=== PATIENT | female | born 1950 | race Caucasian/White ===

== ENCOUNTER → 2016-07-05 | Outpatient (CLI) | payer OTHER ==
[~2016-07-05] MED LIST: COUMADIN 5 MG TA5 M1 PO; ENALAPRIL MALEAT5 M1 PO; LASIX 40 MG TAB40 M2 PO; NEURONTIN100 MG; POTASSIUM20 PO; SILVADENE20 GM; VITAMINC500 PO
== END ==
LOC: HYPER 06:54
DX: I87.332 Chronic venous hypertension (idiopathic) with ulcer and inflammation of left lower extremity (principal); L97.821 Non-pressure chronic ulcer of other part of left lower leg limited to breakdown of skin; R60.9 Edema, unspecified; Z72.0 Tobacco use; F17.210 Nicotine dependence, cigarettes, uncomplicated

== ENCOUNTER → 2016-09-05 | Outpatient (CLI) | payer OTHER | LOC: HYPER 07:08 | DX: I87.332 Chronic venous hypertension (idiopathic) with ulcer and inflammation of left lower extremity (principal); L97.321 Non-pressure chronic ulcer of left ankle limited to breakdown of skin; R60.9 Edema, unspecified; I48.91 Unspecified atrial fibrillation; J44.9 Chronic obstructive pulmonary disease, unspecified; I25.10 Atherosclerotic heart disease of native coronary artery without angina pectoris; I11.0 Hypertensive heart disease with heart failure; I50.9 Heart failure, unspecified; F17.210 Nicotine dependence, cigarettes, uncomplicated; Z86.718 Personal history of other venous thrombosis and embolism; Z85.828 Personal history of other malignant neoplasm of skin; Z86.711 Personal history of pulmonary embolism ==

== ENCOUNTER → 2016-10-03 | Outpatient (CLI) | payer OTHER | LOC: HYPER 07:10 | DX: I87.332 Chronic venous hypertension (idiopathic) with ulcer and inflammation of left lower extremity (principal); L97.322 Non-pressure chronic ulcer of left ankle with fat layer exposed; I48.91 Unspecified atrial fibrillation; J44.9 Chronic obstructive pulmonary disease, unspecified; I11.0 Hypertensive heart disease with heart failure; I50.20 Unspecified systolic (congestive) heart failure; I25.10 Atherosclerotic heart disease of native coronary artery without angina pectoris; Z86.718 Personal history of other venous thrombosis and embolism; Z85.42 Personal history of malignant neoplasm of other parts of uterus; E66.9 Obesity, unspecified; Z86.711 Personal history of pulmonary embolism; F17.210 Nicotine dependence, cigarettes, uncomplicated; Z72.89 Other problems related to lifestyle ==

== ENCOUNTER 2016-11-03 15:56 | Inpatient (IN) | payer OTHER ==
[~2016-11-03] VITALS: Ht 157.5 cm; Wt 82.1 kg
--- NOTE | ~2016-11-03 | 2DMMODE ---
[facility] [address] [place] [address] 2 D/M-MODE ECHOCARDIOGRAM Name: MITESH BRUNER Room #: 212-P ADM IN M.R.#: [id number] Admission: 11/03/16 Attend Phys: Bob William, Discharge: Date of : 52 Date of Service: 11/04/16 1044 Report #: [id number] THIS REPORT FOR: //name// APPROVED REPORT Study performed: 11/04/2016 08:03:26 EXAM: Comprehensive 2D, Doppler, and color-flow Echocardiogram Patient Location: Bedside Room #: 212 Other Information Study Quality: Adequate Indications Congestive Heart Failure Echo Enhancing Agent Indication: Rule out Shunt Agent(s) / Amount(s) Used: Agitated Saline 6 cc 2D Dimensions RVDd: 44.33 mm LVEF(%): 60.50 (>50%) IVSd: 11.96 (7-11mm) LVOT Diam: 19.30 (18-24mm) LVDd: 47.76 mm PWd: 12.47 (7-11mm) Ascending Ao: 30.19 (22-36mm) LVDs: 32.33 (25-40mm) Aortic Root: 28.52 mm IVC: 26.00 mm Marvin's LVEF: 60.50 % Volumes Left Atrial Volume (Systole) Single Plane 4CH: 74.61 mL Single Plane 2CH: 68.92 mL LA ESV Index: 42.00 mL/m2 Aortic Valve AoV Peak Vinh.: 1.46 m/s AO Peak Gr.: 8.53 mmHg LVOT Max P.32 mmHg LVOT Max V: 1.04 m/s STAN Vmax: 2.08 cm2 Mitral Valve MV Decel. Time: 213.79 ms MV E Max Vinh.: 1.35 m/s [facility] [email or web address] [address] 2 D/M-MODE ECHOCARDIOGRAM Name: MITESH BRUNER Room #: 212-P [facility] IN ..#: [id number] Admission: 11/03/16 Attend Phys: Bob William, Discharge: Date of : 52 Date of Service: 11/04/16 1044 Report #: [id number] IVRT: 73.82 ms Pulmonary Valve PV Peak Vinh.: 1.28 m/s PV Peak Gr.: 6.52 mmHg Tricuspid Valve TR Peak Vinh.: 3.44 m/s TR Peak Gr.: 47.45 mmHg RVSP: 10.00 mmHg Left Ventricle The left ventricle is normal size. Mild concentric left ventricular hypertrophy. The overall left ventricular systolic function appears normal. LVEF is 60%. This study is not technically sufficient to allow evaluation of the LV diastolic function. Right Ventricle Right ventricle is dilated. Right ventricular systolic function is grossly normal. Atria Left atrium is dilated. Injection of bubbles documented no interatrial shunt. Right atrium is dilated. Aortic Valve Aortic valve leaflets are mildly thickened. No aortic regurgitation is present. There is no aortic valvular stenosis. Mitral Valve Mitral valve leaflets are mildly thickened. Trace to mild mitral regurgitation. No evidence of mitral valve stenosis. Tricuspid Valve The tricuspid valve is normal in structure. Mild tricuspid regurgitation. Pulmonic Valve The pulmonary valve is normal in structure. Trace to mild pulmonic regurgitation. Great Vessels The aortic root is normal in size. The ascending aorta is normal in size. IVC is dilated and collapses >50% with inspiration. <Conclusion> The left ventricle is normal size. [facility] [address] [place] [address] 2 D/M-MODE ECHOCARDIOGRAM Name: MITESH BRUNER EMILY Room #: 212-P [facility] IN .R.#: [id number] Admission: 11/03/16 Attend Phys: Bob William, Discharge: Date of : 52 Date of Service: 11/04/16 1044 Report #: [id number] Mild concentric left ventricular hypertrophy. LVEF is 60%. Right ventricle is dilated. Right ventricular systolic function is grossly normal. Left atrium is dilated. Right atrium is dilated. Aortic valve leaflets are mildly thickened. Mitral valve leaflets are mildly thickened. Trace to mild mitral regurgitation. The tricuspid valve is normal in structure. Mild tricuspid regurgitation. The pulmonary valve is normal in structure. Trace to mild pulmonic regurgitation. <ELECTRONICALLY SIGNED> By: Marco A Taylor MD 11/04/16 1044 1044 1044 Marco A Taylor MD /INF
--- NOTE | ~2016-11-03 | H ---
[facility] [address] [place] [address] HISTORY AND PHYSICAL Name: FRANCMITESHMich DIAZ Room #: 212-P [facility] IN M.R.#: [id number] Admission: 11/03/16 Attend Phys: Bob William MD, Discharge: 11/05/16 Date of : 52 Report #: [id number] THIS REPORT FOR: //name// For History and Physical, please see office documentation/handwritten note in the patient's medical record. By: 0855 Bob William MD, FACC /jr
--- NOTE | ~2016-11-03 | D ---
[facility] [address] [place] [address] DISCHARGE SUMMARY Name: MITESH BRUNER Room #: 212-P ADM IN M.R.#: [id number] Admission: 11/03/16 Attend Phys: Bob William MD, Discharge: Date of : 52 Report #: [id number] THIS REPORT FOR: //name// CC: Bob BEST DO HISTORY OF PRESENT ILLNESS: The patient is a 65-year-old female who I admitted for an acute on chronic systolic and diastolic heart failure exacerbation with marked volume overload, severe peripheral edema. Admitted for IV Lasix, diuresis and some question of chronic diarrhea, which was evaluated by GI. She was aggressively diuresed and is down approximately 10 pounds. Her lower extremity edema is markedly improved with chronic venous stasis change, but no significant breakdown. She has had a remote gastric bypass, which may have been leading to the diarrhea issue, chronic anemia, atrial fibrillation with controlled ventricular response. I should note there is a left ankle wound that was open and healing, seen by wound care. Stool culture was negative for blood. It was ok to discharge by GI this morning. She feels much better. She is up and ambulating. Sodium was 139, potassium 4.1, creatinine was 0.7. Liver function tests: Alkaline phosphatase was mildly elevated, SGPT was 27. BNP was 2851 that was on admission. H and H is 9.3 and 28.3, white count 7. Lower extremity venous study was also performed that was negative for DVT. Chest x-ray, cardiomegaly and atelectasis were noted. She will be discharged to home on torsemide 40 a day, gabapentin 300 a day, loperamide 8 mg at night, Xarelto 20 mg q. dinner, mag ox, losartan 50, tramadol 50 mg q. 8 p.r.n. DISCHARGE DIAGNOSES: Acute on chronic diastolic failure with ejection fraction has now normalized to EF 55-60%. This was reported 30% at her hospitalization in [facility] earlier this month. DISCHARGE DIAGNOSES: 1. Permanent atrial fibrillation. 2. Mitral valve prolapse. 3. History of deep venous thrombosis, but negative on this study. 4. History of pulmonary embolism. 5. Chronic obstructive pulmonary disease. 6. Early dementia. 7. Moderate pulmonary hypertension by history. We will continue the current regimen here. Fluid and sodium restriction, daily weights again discussed in detail with the patient. She has followup scheduled with wound care and followup scheduled in my office in 3 months. She will call with any issues. I will have her actually visit with nurse practitioner within 2 weeks and myself in [address] [address] DISCHARGE SUMMARY Name: ORLANDO BRUNERSANTIAGO DIAZ Room #: 212-P [facility] IN M.R.#: [id number] Admission: 11/03/16 Attend Phys: Bob William MD, Discharge: Date of : 52 Report #: [id number] Thank you for allowing me to assist in the care of this patient. By: 0955 1217 Bob William MD, FACC /nt
[2016-11-03 16:20] VITALS: BP 119/85
[2016-11-03 17:19] LABS: HEMATOCRIT 28.3 % (37.0-47.0); HEMOGLOBIN 9.3 gm/dL (12.0-15.0); MCHC 32.8 g/dL (28.0-37.0); MCV 82.3 fL (80.0-100.0); RBC 3.44 mil/uL (4.20-5.00); WBC 7.4 thou/uL (4.0-11.0)
[2016-11-03 17:41] LABS: ALBUMIN 3.2 g/dL (3.4-5.0); CALCIUM 8.6 mg/dL (8.5-10.1); CREATININE 0.7 mg/dL (0.6-1.0); TOTAL BILIRUBIN 0.8 mg/dL (<0.1-1.0); TOTAL PROTEIN 7.7 g/dL (6.4-8.2)
[2016-11-03 17:46] LABS: POTASSIUM 2.7 mmol/L (3.5-5.1)
[2016-11-03] MEDS ORDERED: LOPERAMIDE 2 MG2 M1 PO (18:54)
[2016-11-03 19:51] VITALS: BP 107/52
[2016-11-03 20:35] LABS: % SATURATION 11 % (20-39); IRON 40 ug/dL (50-170); TIBC 354 ug/dL (250-450); UIBC 314 ug/dL
[2016-11-03 23:52] VITALS: BP 89/41
[2016-11-04 04:15] VITALS: BP 95/46
[2016-11-04 08:10] VITALS: BP 110/57
[2016-11-04 11:18] VITALS: BP 100/57
[2016-11-04 15:48] VITALS: BP 108/70
[2016-11-04] MEDS ORDERED: XARELTO10 MG PO (17:10)
[2016-11-04] MEDS ORDERED: DEMADEX20 MG PO (17:10)
[2016-11-04 20:22] VITALS: BP 143/71
[2016-11-05 03:03] LABS: CALCIUM 8.4 mg/dL (8.5-10.1); CREATININE 0.7 mg/dL (0.6-1.0); POTASSIUM 4.1 mmol/L (3.5-5.1)
[2016-11-05 04:49] VITALS: BP 109/54
[2016-11-05 07:58] VITALS: BP 129/106
[2016-11-05 10:41] VITALS: BP 129/106
== END 2016-11-05 12:28 | disposition home or self-care (01) | DRG 293 ==
LOC: 2N 15:56
PROVIDERS: Internal Medicine Cardiovascular Disease; Internal Medicine Gastroenterology; Nurse Practitioner Gerontology
DX: I11.0 Hypertensive heart disease with heart failure (principal); I34.1 Nonrheumatic mitral (valve) prolapse; J44.9 Chronic obstructive pulmonary disease, unspecified; I50.43 Acute on chronic combined systolic (congestive) and diastolic (congestive) heart failure; F03.90 Unspecified dementia, unspecified severity, without behavioral disturbance, psychotic disturbance, mood disturbance, and anxiety; I48.2 Chronic atrial fibrillation; D64.9 Anemia, unspecified; I27.2 Other secondary pulmonary hypertension; K52.9 Noninfective gastroenteritis and colitis, unspecified; I42.9 Cardiomyopathy, unspecified; E87.6 Hypokalemia; Z98.84 Bariatric surgery status; Z88.0 Allergy status to penicillin; Z86.711 Personal history of pulmonary embolism; Z86.718 Personal history of other venous thrombosis and embolism; Z90.49 Acquired absence of other specified parts of digestive tract; Z87.01 Personal history of pneumonia (recurrent)
CPT/HCPCS: 10081

== ENCOUNTER 2016-11-08 10:25 | Inpatient (IN) | payer OTHER ==
[~2016-11-08] VITALS: Ht 157.5 cm; Wt 84.7 kg
--- NOTE | ~2016-11-08 | EKG ---
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: MZOOJesus : 1950 Requested By: Demetrius Eaton Order Number: [id number] MD: Varun Naranjo Measurements Intervals [place] Rate: 112 P: MT: QRS: -35 QRSD: 100 T: 197 QT: 366 QTc: 500 Interpretive Statements Atrial fibrillation Ventricular premature complex Incomplete RBBB and LAFB Abnormal T, consider ischemia, lateral leads Artifact in lead(s) I,II,aVR,aVL,aVF,V1 Electronically Signed On 11-08-2016 17:12:40 CDT by Varun Naranjo [email or web address] <ELECTRONICALLY SIGNED> By: Varun Naranjo MD 11/08/16 1712 1033 1033 Varun Naranjo MD /EPI
--- NOTE | ~2016-11-08 | HC ---
[facility] [address] [place] [address] CONSULTATION Name: MITESH BRUNER EMILY Room #: 460-P ADM IN M.R.#: [id number] Admission: 11/08/16 Attend Phys: Ang Reed MD Discharge: Date of : 52 Report #: [id number] THIS REPORT FOR: //name// CC: Ang Badillo REASON FOR CONSULTATION: Pneumonia, confusion. HISTORY OF PRESENT ILLNESS: The patient is a 65-year-old who presents to the emergency room with confusion, weakness, cough. She was a poor historian. She was treated through 11/05/2016 at [facility] with exacerbation of congestive heart failure. She is also diagnosed with anemia. The patient has been anticoagulated and therefore colonoscopy was not yet performed. Earlier in the month, she was treated at [facility] for pneumonia. She has had cough with intermittent sputum production. She could not relay much other information about her past history. She does live with her son. She has several dogs. Has had pneumonia in the past. Previously was morbidly obese but lost fair amount of weight. She is allergic to PENICILLIN. She has had a gastric bypass. She is a past smoker. No history of tuberculosis. REVIEW OF SYSTEMS: Denies any nausea, vomiting, diarrhea, dysuria or frequency. No chest pain. No headache. She has chronic wound to her left ankle. ALLERGIES: PENICILLIN. MEDICATIONS: As noted on her MAR, which were reviewed. PAST MEDICAL HISTORY: Previous morbid obesity, gastric bypass, ovarian cancer, cholecystectomy, atrial fibrillation, chronic diarrhea, anemia, peripheral vascular disease. FAMILY HISTORY: Noncontributory. SOCIAL HISTORY: Unchanged from above. She continues to smoke cigarettes and moderate alcohol intake. PHYSICAL EXAMINATION: GENERAL: She is afebrile, hemodynamically stable. She was alert and cooperative and pleasant, in no acute distress. VITAL SIGNS: She is on 2 liters of oxygen per nasal cannula. Her maximum temperature earlier this morning was 102.4 degrees. SKIN: Chronic wound to the lateral aspect of her left lower leg just above the ankle. No surrounding cellulitis. No significant drainage. HEENT: Edentulous in the upper mouth. NECK: Supple. LUNGS: Clear. HEART: Regular, without murmur. [address] [address] CONSULTATION Name: MITESH BRUNER Room #: 460-P [facility] IN M.R.#: [id number] Admission: 11/08/16 Attend Phys: Ang Reed MD Discharge: Date of : 51 Report #: [id number] ABDOMEN: Soft, no hepatosplenomegaly or mass. NEUROLOGIC: Nonfocal. LABORATORY STUDIES: Urinalysis unremarkable. Lactate 1.8, hemoglobin 10.3, white count 10.2, platelet count 232,000. Differential, 88% segs, 0 bands, 6% lymphocytes. Sodium 141, potassium 3.9, bicarbonate 32, creatinine 0.8. Chest x-ray, right upper lung infiltrate along with right middle and lower lobe infiltrate. Improved atelectasis in the left upper lung. IMPRESSION: Aspiration suspected, nosocomial, healthcare-associated pneumonia, most likely. PLAN: Recommend broad antibiotic coverage pending culture results. Hopefully, mental status will improve following treatment. <ELECTRONICALLY SIGNED> By: Rajeev Santiago MD 11/09/16 1845 [id number] 0106 Rajeev Santaigo MD /nt
--- NOTE | ~2016-11-08 | HC ---
[facility] [address] [place] [address] CONSULTATION Name: MITESH BRUNER Room #: 460-P [facility] IN M.R.#: [id number] Admission: 11/08/16 Attend Phys: Ang Reed MD Discharge: Date of : 51 Report #: [id number] THIS REPORT FOR: //name// CC: Ang Badillo DATE OF SERVICE: 11/09/2016 DATE OF CONSULTATION: 11/09/2016 PERSONAL PHYSICIAN: ____. CHIEF COMPLAINT: Left ankle ulcer. HISTORY OF PRESENT ILLNESS: This is a 65-year-old white female who was recently hospitalized for acute exacerbation of congestive heart failure, who I have been following for several months for a chronic ulceration on her left ankle region. The patient most recently was hospitalized and started on TheraHoney and was scheduled to followup with me in clinic later this week; however, patient developed confusion, weakness and cough and has now been admitted for pneumonia. I have been asked to assist in the care for her ulcer of her heel at this time. The patient denies any other associated ulcerations at this time. PAST MEDICAL HISTORY: Significant for previous morbid obesity status post gastric bypass with significant weight loss, history of ovarian cancer, cholecystectomy, atrial fibrillation, peripheral vascular disease and anemia. CURRENT MEDICATIONS: Are multiple, I reviewed the patient's medication list. DRUG ALLERGIES: PENICILLIN. SOCIAL HISTORY: The patient has a history of smoking and still smokes approximately half a pack of cigarettes daily, drinks alcohol socially. FAMILY HISTORY: Not pertinent to current medical condition. REVIEW OF SYSTEMS: CONSTITUTIONAL: The patient had fevers and chills prior to admission. NEUROLOGIC: The patient complains of generalized weakness, but no isolated weakness in arms or legs. EYES: No complaints. ENT: No complaints. CARDIAC: The patient denies chest pain, palpitations, has history of peripheral edema, which is improved. RESPIRATORY: The patient denies shortness of breath and does have associated cough and occasional wheeze. [facility] [address] [place] [address] CONSULTATION Name: MITESH BRUNER EMILY Room #: [address] [place] [address] IN M.R.#: [id number] Admission: 11/08/16 Attend Phys: Ang Reed MD Discharge: Date of : 51 Report #: [id number] GASTROINTESTINAL: The patient denies nausea, vomiting or abdominal pain. GENITOURINARY: The patient denies urgency or frequency. MUSCULOSKELETAL: No complaints. SKIN: There is a chronic ulceration on the lateral aspect of left ankle. PHYSICAL EXAMINATION: VITAL SIGNS: Stable. The patient is afebrile. GENERAL: This is alert and oriented x 3, pleasant white female who is in no acute distress. HEENT: Normocephalic and atraumatic. Mucous membranes are dry. Pupils are round. Sclerae white. NECK: Without JVD or masses. BACK: Nontender. LUNGS: Diminished breath sounds heard throughout. Occasional scattered wheeze. HEART: Irregularly irregular with a 2/6 systolic ejection murmur. ABDOMEN: Soft, nontender. EXTREMITIES: The patient moves all extremities without difficulty. The patient has trace to 1+ edema in bilateral lower extremities. There is faint to 1+ pulses in both dorsalis pedis and posterior tibial bilaterally. On the left lateral ankle is a chronic ulceration, which has a mixture of approximately 50% slough 50% granulation tissue. There is no evidence of exposed deeper structures, no significant ____. There is moderate amount of serosanguineous drainage without odor. Periulcer itself is otherwise intact without significant signs of erythema, warmth or cellulitis. Bilateral heels are intact. NEUROLOGIC: Cranial nerves 2-12 are grossly intact. Motor and sensory grossly intact. LABORATORY DATA: White count 10.0, hemoglobin 7.9, prealbumin is markedly low at 8.4, albumin is 2.7. IMPRESSION: 1. Chronic ulceration left lateral ankle, limited breakdown of fat layer. 2. Chronic peripheral arterial disease. 3. Chronic history of venous insufficiency with edema. 4. Pneumonia most likely a concern for aspiration. 5. Severe protein calorie malnutrition, albumin 8.4. 6. Generalized debility. PLAN: At this time, we will start the patient on Pulse lavage of the left ankle ulcer to try to help clean out some of the slough, continue with TheraHoney and Optifoam every Monday, Monday and Monday. We will continue to maximize the [address] [address] CONSULTATION Name: FRANCMITESHMich DIAZ Room #: 460-P ADM IN M.R.#: [id number] Admission: 11/08/16 Attend Phys: Ang Reed MD Discharge: Date of : 51 Report #: [id number] patient's oral protein supplementation for healing. We will continue to follow the patient. I appreciate the ability to consult. By: 1817 0223 Walter Swift MD /ronak
[~2016-11-08 10:25] MED LIST changes: +DEMADEX20 MG PO; +LOPERAMIDE 2 MG2 M1 PO; +XARELTO10 MG PO
[2016-11-08 10:27] VITALS: BP 116/56
[2016-11-08 10:59] LABS: HEMOGLOBIN 10.3 gm/dL (12.0-15.0); MCHC 32.1 g/dL (28.0-37.0); MCV 84.1 fL (80.0-100.0); PLATELET COUNT 232 thou/uL (150-400); RDW 28.9 % (10.5-14.5); WBC 10.2 thou/uL (4.0-11.0)
[2016-11-08 11:07] LABS: MANUAL DIFF YES
[2016-11-08 11:11] LABS: CALCIUM 8.5 mg/dL (8.5-10.1); CREATININE 0.8 mg/dL (0.6-1.0); POTASSIUM 3.9 mmol/L (3.5-5.1)
[2016-11-08 11:42] LABS: ANISOCYTOSIS 3+; MACROCYTES 1+; MICROCYTES 1+; TOTAL CELL COUNT 100
[2016-11-08 12:17] LABS: URINE BILIRUBIN NEGATIVE (Negative); URINE BLOOD NEGATIVE (Negative); URINE COLOR YELLOW; URINE GLUCOSE-RANDOM* NEGATIVE (Negative); URINE KETONES NEGATIVE (Negative); URINE LEUKOCYTES-REFLEX NEGATIVE (Negative); URINE PROTEIN (DIPSTICK) NEGATIVE (Negative)
[2016-11-08 13:21] VITALS: BP 115/48
[2016-11-08 14:07] VITALS: BP 102/74
[2016-11-08 16:55] VITALS: BP 145/85
[2016-11-08 21:12] VITALS: BP 125/59
[2016-11-09] VITALS: BP 96/45
[2016-11-09 04:00] VITALS: BP 113/92
[2016-11-09 05:59] LABS: HEMATOCRIT 24.7 % (37.0-47.0); HEMOGLOBIN 7.9 gm/dL (12.0-15.0); MANUAL DIFF YES; MCH 27.1 pg (26.0-34.0); MCHC 32.2 g/dL (28.0-37.0); MCV 84.1 fL (80.0-100.0); PLATELET COUNT 184 thou/uL (150-400); RBC 2.93 mil/uL (4.20-5.00); RDW 28.2 % (10.5-14.5)
[2016-11-09 06:15] LABS: CALCIUM 8.2 mg/dL (8.5-10.1); CREATININE 0.8 mg/dL (0.6-1.0); MAGNESIUM 2.2 mg/dL (1.8-2.4); POTASSIUM 3.5 mmol/L (3.5-5.1)
[2016-11-09 07:43] LABS: ABSOLUTE NEUTROPHILS 8.8 thou/uL (1.4-8.2); ANISOCYTOSIS 1+; POIKILOCYTOSIS SLIGHT; TOTAL CELL COUNT 100
[2016-11-09 07:44] LABS: HYPOCHROMASIA 1+; OVALOCYTES OCCASIONAL
[2016-11-09 07:45] VITALS: BP 108/45
[2016-11-09 10:20] LABS: HEMATOCRIT 27.1 % (37.0-47.0); HEMOGLOBIN 8.6 gm/dL (12.0-15.0); MCH 27.1 pg (26.0-34.0); MCHC 31.9 g/dL (28.0-37.0); MCV 84.8 fL (80.0-100.0); RBC 3.19 mil/uL (4.20-5.00); RDW 28.3 % (10.5-14.5); WBC 8.8 thou/uL (4.0-11.0)
[2016-11-09 12:03] VITALS: BP 107/61
[2016-11-09] MEDS ORDERED: NEURONTIN 300300 M1 PO (13:21)
[2016-11-09] MEDS ORDERED: COZAAR 50 MG TA50 M2 PO (13:24)
[2016-11-09 16:04] VITALS: BP 108/53
[2016-11-09 19:56] VITALS: BP 116/62
[2016-11-10 03:56] VITALS: BP 113/51
[2016-11-10 07:00] VITALS: BP 133/74
[2016-11-10 11:37] VITALS: BP 105/56
[2016-11-10 14:52] LABS: HEMATOCRIT 26.4 % (37.0-47.0); HEMOGLOBIN 8.5 gm/dL (12.0-15.0); MCH 27.2 pg (26.0-34.0); MCHC 32.2 g/dL (28.0-37.0); MCV 84.7 fL (80.0-100.0); RBC 3.11 mil/uL (4.20-5.00)
[2016-11-10 15:00] LABS: CALCIUM 8.4 mg/dL (8.5-10.1); CREATININE 0.7 mg/dL (0.6-1.0); POTASSIUM 3.4 mmol/L (3.5-5.1)
[2016-11-10 15:47] VITALS: BP 109/51
[2016-11-10 19:42] VITALS: BP 111/56
[2016-11-11 03:13] VITALS: BP 88/58
[2016-11-11 07:38] VITALS: BP 126/61
[2016-11-11 10:48] VITALS: BP 126/61
[2016-11-11 12:59] VITALS: BP 122/72
[2016-11-11] MEDS ORDERED: LEVAQUIN 750 M750 MG PO (14:26)
[2016-11-11] MEDS ORDERED: PROBIOTIC1 EAC1 PO (14:26)
[2016-11-11 14:42] VITALS: BP 126/61
[2016-11-11 14:45] VITALS: BP 126/61
== END 2016-11-11 15:37 | disposition home health service (06) | DRG 177 ==
LOC: ER 10:25 → 4W 13:01 → EROBS 13:01 → 4W 13:22
PROVIDERS: Emergency Medicine; Internal Medicine; Nurse Practitioner
DX: J69.0 Pneumonitis due to inhalation of food and vomit (principal); J96.01 Acute respiratory failure with hypoxia; G93.40 Encephalopathy, unspecified; E43 Unspecified severe protein-calorie malnutrition; L97.329 Non-pressure chronic ulcer of left ankle with unspecified severity; I48.91 Unspecified atrial fibrillation; I73.9 Peripheral vascular disease, unspecified; R00.0 Tachycardia, unspecified; I27.2 Other secondary pulmonary hypertension; D64.9 Anemia, unspecified; R01.1 Cardiac murmur, unspecified; I87.2 Venous insufficiency (chronic) (peripheral); F17.210 Nicotine dependence, cigarettes, uncomplicated; K52.9 Noninfective gastroenteritis and colitis, unspecified; Z68.34 Body mass index [BMI] 34.0-34.9, adult; Z79.899 Other long term (current) drug therapy; Z85.43 Personal history of malignant neoplasm of ovary; Z90.49 Acquired absence of other specified parts of digestive tract; Z88.0 Allergy status to penicillin; Z98.84 Bariatric surgery status; Z86.718 Personal history of other venous thrombosis and embolism
CPT/HCPCS: 10045

== ENCOUNTER → 2016-12-09 | Outpatient (CLI) | payer OTHER ==
[~2016-12-09] MED LIST changes: +COZAAR 50 MG TA50 M2 PO; +LEVAQUIN 750 M750 MG PO; +NEURONTIN 300300 M1 PO; +PROBIOTIC1 EAC1 PO
== END ==
LOC: HYPER 08:21
DX: I87.332 Chronic venous hypertension (idiopathic) with ulcer and inflammation of left lower extremity (principal); L97.321 Non-pressure chronic ulcer of left ankle limited to breakdown of skin; R60.9 Edema, unspecified; I48.91 Unspecified atrial fibrillation; J44.9 Chronic obstructive pulmonary disease, unspecified; I25.10 Atherosclerotic heart disease of native coronary artery without angina pectoris; I11.0 Hypertensive heart disease with heart failure; I50.9 Heart failure, unspecified; F17.210 Nicotine dependence, cigarettes, uncomplicated; Z72.89 Other problems related to lifestyle; Z85.828 Personal history of other malignant neoplasm of skin; Z86.711 Personal history of pulmonary embolism

== ENCOUNTER → 2017-02-09 | Outpatient (CLI) | payer OTHER | LOC: HYPER 01-02 08:57 | DX: I87.332 Chronic venous hypertension (idiopathic) with ulcer and inflammation of left lower extremity (principal); L97.822 Non-pressure chronic ulcer of other part of left lower leg with fat layer exposed; I48.91 Unspecified atrial fibrillation; J44.9 Chronic obstructive pulmonary disease, unspecified; I11.0 Hypertensive heart disease with heart failure; I50.9 Heart failure, unspecified; H91.90 Unspecified hearing loss, unspecified ear; I25.10 Atherosclerotic heart disease of native coronary artery without angina pectoris; E66.9 Obesity, unspecified; F17.210 Nicotine dependence, cigarettes, uncomplicated; Z86.711 Personal history of pulmonary embolism; Z86.718 Personal history of other venous thrombosis and embolism; Z85.42 Personal history of malignant neoplasm of other parts of uterus; Z87.01 Personal history of pneumonia (recurrent); Z90.710 Acquired absence of both cervix and uterus; Z72.89 Other problems related to lifestyle; Z68.31 Body mass index [BMI] 31.0-31.9, adult ==

== ENCOUNTER → 2017-03-08 | Outpatient (CLI) | payer OTHER | LOC: HYPER 07:09 | DX: I87.332 Chronic venous hypertension (idiopathic) with ulcer and inflammation of left lower extremity (principal); L97.322 Non-pressure chronic ulcer of left ankle with fat layer exposed; I48.91 Unspecified atrial fibrillation; J44.9 Chronic obstructive pulmonary disease, unspecified; I11.0 Hypertensive heart disease with heart failure; I50.9 Heart failure, unspecified; I25.10 Atherosclerotic heart disease of native coronary artery without angina pectoris; E66.9 Obesity, unspecified; H91.90 Unspecified hearing loss, unspecified ear; F17.210 Nicotine dependence, cigarettes, uncomplicated; Z72.89 Other problems related to lifestyle; Z86.718 Personal history of other venous thrombosis and embolism; Z85.44 Personal history of malignant neoplasm of other female genital organs; Z86.711 Personal history of pulmonary embolism; Z87.01 Personal history of pneumonia (recurrent); Z90.710 Acquired absence of both cervix and uterus ==

== ENCOUNTER 2017-03-12 00:29 | Inpatient (IN) | payer OTHER ==
[~2017-03-12] VITALS: Ht 162.6 cm; Wt 80.0 kg
[2017-03-12] VITALS (65 sets, daily range): BP systolic 74–134; BP diastolic 33–102
--- NOTE | ~2017-03-12 | EKG ---
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 : 1950 Requested By: Octavio Plummer Order Number: [id number] MD: Varun Naranjo Measurements Intervals [place] Rate: 96 P: [place]: QRS: 197 QRSD: 102 T: -46 QT: 396 QTc: 501 Interpretive Statements Atrial fibrillation Low voltage, precordial leads Probable RVH w/ secondary repol abnormality Compared to ECG 03/12/2017 08:14:25 ST (T wave) deviation no longer present Electronically Signed On 03-13-2017 11:23:57 CDT by Varun Naranjo [email or web address] <ELECTRONICALLY SIGNED> By: Varun Naranjo MD 03/13/17 1123 0951 0951 Varun Naranjo MD /EPI
--- NOTE | ~2017-03-12 | P ---
[facility] [address] [place] [address] PROCEDURE REPORT Name: MITESH BRUNER Room #: 350-P ADM IN M.R.#: [id number] Admission: 03/12/17 Attend Phys: Clifford Beltran DO Discharge: Date of : 51 Report #: [id number] THIS REPORT FOR: //name// CC: Mich Loyd DATE OF SERVICE: 03/14/2017 PROCEDURE PERFORMED: EGD with bleeding control and nasogastric tube placement. HISTORY OF PRESENT ILLNESS: The patient is a 66-year-old female with respiratory failure who was transferred from outside facility, has a history of AFib, hypertension, congestive heart failure, pneumonia, pulmonary hypertension, and previous history of a gastric bypass. She is currently in the ICU, intubated and sedated. An OG tube was placed; however, it appears it is coiling in a hiatal hernia , therefore GI consult for possible EGD placement of OG tube. She has also been on Xarelto at home and is anemic. Hemoglobin on March 12, was 9.2, today is 8.7. A CT arteriogram chest protocol was performed yesterday, which showed small pulmonary emboli present on the right lower lung, these are new from prior study. The patient is currently on IV heparin. PROCEDURE: The risks and benefits of the procedure were explained to the patient's family, those risks including, but not limited to bleeding, perforation, and the risk of sedation. They understood these risks and gave informed consent. The procedure was performed in the ICU. Again, the patient is already sedated on propofol and on a ventilator. Next, using a standard Fujinon upper endoscope, the scope was placed in the patient's mouth and advanced under direct vision through the esophagus into the remaining stomach, at which point surgical anastomosis was noted. This was consistent with a partial gastrectomy and anastomosis of duodenum to remaining stomach. Small amount of residual food was noted in the stomach. I was able to advance the scope into the duodenum, at which point a visible vessel with fresh clot was noted. There was no active bleeding. I 2 Endoclips without difficulty. No bleeding was noted after Endoclip placement. I was able to advance the scope beyond this point. In this area, the duodenum was normal. At this point, the scope was then brought back up into the patient's oropharynx. The previous OG-tube was removed prior to the procedure and a nasogastric tube was placed. I was able to guide this in with the endoscope through the esophagus through the remaining gastric remnant and into the duodenum beyond the point of the Endoclip placement. The scope was then withdrawn and the tube remained in place. The procedure was then terminated. The patient tolerated the procedure well. IMPRESSION: 1. Surgical changes consistent with gastric bypass in which small gastric [facility] [address] [place] [address] PROCEDURE REPORT Name: MITESH BRUNER EMILY Room #: 350-P [facility] IN M.R.#: [id number] Admission: 03/12/17 Attend Phys: Clifford Beltran DO Discharge: Date of : 51 Report #: [id number] remnant remains. 2. Visible vessel with clot likely source of recent gastrointestinal bleed, now status post 2 Endoclips placement. 3. Placement of a nasogastric tube into the duodenum. RECOMMENDATIONS: 1. Observe the patient post procedure. 2. We will discontinue Pepcid and start a Protonix drip. 3. We will continue to monitor hemoglobin closely. Thank you for allowing me to participate in her care. <ELECTRONICALLY SIGNED> By: Mannie Pacheco MD 03/17/17 1510 1418 1548 Mannie Pacheco MD /nt
--- NOTE | ~2017-03-12 | HC ---
[facility] [address] [place] [address] CONSULTATION Name: MITESH BRUNER Room #: 247-P ADM IN M.R.#: [id number] Admission: 03/12/17 Attend Phys: Clifford Beltran DO Discharge: Date of : 51 Report #: [id number] THIS REPORT FOR: //name// CC: Clifford Badillo DATE OF SERVICE: 03/12/2017 REASON FOR CONSULTATION: Acute respiratory failure. Forty minutes critical care time. IMPRESSION: 1. Severe sepsis. 2. Left lower lobe pneumonia. 3. Acute hypoxemic respiratory failure. 4. Atrial fibrillation. 5. Trace to mild mitral regurgitation. PLAN: 1. Continue current antibiotics. 2. Wean ventilator as able. 3. Await cultures. 4. Anticoagulation for atrial fibrillation per primary. 5. Recheck chest x-ray and ABG in a.m. 6. May need surgical evaluation for hiatal hernia. HISTORY OF PRESENT ILLNESS: A 66-year-old female with history of aspiration pneumonia, comes in from [facility], required intubation en route. PAST MEDICAL HISTORY: ALLERGIES: PENICILLIN. MEDICATIONS: Included Xarelto, gabapentin, losartan, loperamide. PAST SURGICAL HISTORY: Include ovarian, cholecystectomy, gastric bypass. SOCIAL HISTORY: Positive tobacco in past and ETOH. REVIEW OF SYSTEMS: Unobtainable. FAMILY HISTORY: Unobtainable. PHYSICAL EXAMINATION: VITAL SIGNS: The patient is intubated, minute ventilation 11, peak airway pressure 25. [facility] [address] [place] [address] CONSULTATION Name: MITESH BRUNER Room #: 247-P ADM IN M.R.#: [id number] Admission: 03/12/17 Attend Phys: Clifford Beltran DO Discharge: Date of : 51 Report #: [id number] LUNGS: Coarse, left greater than right. HEART: Irregular. ABDOMEN: Bowel sounds present. EXTREMITIES: Showed no edema or cyanosis. NEUROLOGICAL: She awakens, but sedated. LABORATORY DATA: Urine strep is negative. Labs pending. Chest x-ray showed left infiltrate. BNP 4355. The pH 7.37, pCO2 of 53, pO2 of 328 on 100%, rate of 14, tidal volume 400, PEEP of 5. <ELECTRONICALLY SIGNED> By: Octavio Plummer MD 03/12/17 1511 1115 1327 Octavio Plummer MD /nt
--- NOTE | ~2017-03-12 | HC ---
[facility] [address] [place] [address] CONSULTATION Name: MITESH BRUNER Room #: 247-P ADM IN M.R.#: [id number] Admission: 03/12/17 Attend Phys: Clifford Beltarn DO Discharge: Date of : 52 Report #: [id number] THIS REPORT FOR: //name// CC: Clifford Badillo DATE OF SERVICE: 03/13/2017 CHIEF COMPLAINT: Ulceration of the left lateral lower leg. HISTORY OF PRESENT ILLNESS: This is a 66-year-old patient with whom I am familiar from recent hospitalization. She has been admitted with respiratory failure. She was intubated by EMS and is currently in ICU. We have seen her for her lower leg wound in the past. She had done well with topical TheraHoney and pulsatile lavage. She is sedated on respirator at this time, cannot provide any information about herself. ALLERGIES: PENICILLIN. PAST MEDICAL HISTORY: Positive for chronic ulceration of left ankle due to venous hypertension and venous insufficiency. She has a history of tobacco use. FAMILY HISTORY: Noncontributory. MEDICATIONS: Include Xarelto, gabapentin, ____ and loperamide. PAST SURGICAL HISTORY: She has had previous cholecystectomy and previous gastric bypass. SOCIAL HISTORY: Positive for alcohol and tobacco use in the past. REVIEW OF SYSTEMS: Unobtainable due to the patient's condition. PHYSICAL EXAMINATION: VITAL SIGNS: At this time include pulse 100, respiratory rate 19, blood pressure 126/72, temperature is 99.0. GENERAL: This is a chronically ill-appearing female patient who is sedated on ventilator. HEAD: Normocephalic. NECK: Supple. She is orally intubated. LUNGS: Diminished. HEART: Regular rhythm. ABDOMEN: Soft, nontender. EXTREMITIES: Lower extremities appear to be well perfused. She has ulceration involving her left lateral lower leg. It is covered mostly with pale granulation tissue, it is not overtly infected. [facility] [address] [place] [address] CONSULTATION Name: MITESH BRUNER Room #: 247-P [facility] IN .R.#: [id number] Admission: 03/12/17 Attend Phys: Clifford Beltran DO Discharge: Date of : 51 Report #: [id number] CLINICAL IMPRESSION: 1. Venous ulceration, left lower extremity. 2. Respiratory failure requiring mechanical ventilation. 3. Recent sepsis. RECOMMENDATIONS: At this point in time, we will recommend topical TheraHoney to the ulceration. She will need to be turned and repositioned every 2 hours while she is sedated. Continue with aggressive nutritional support while she is here. I appreciate being asked to see her in consultation. <ELECTRONICALLY SIGNED> By: Perez Marcelo MD 03/15/17 1419 1714 0542 Perez Marcelo MD /nt
--- NOTE | ~2017-03-12 | EKG ---
[address] [place] [address] ELECTROCARDIOGRAM REPORT Name: ORLANDO BRUNERSANTIAGO DIAZ Room #: 247- ADM IN M.R.#: [id number] Admission: 03/12/17 Attend Phys: Clifford Beltran DO Discharge: Date of : 52 Report #: [id number] THIS REPORT FOR: //name// [facility] Test Date: 2017-03-12 Test Time: 08:14:25 Pat Name: MITESH BRUNER Department: Room: 247 P Gender: F Director Of Scientific Research: EDDIE : 1950 Requested By: Suzi Hanson Order Number: [id number] MD: Av Hall Measurements Intervals [place] Rate: 77 P: ID: QRS: 258 QRSD: 102 T: -27 QT: 434 QTc: 492 Interpretive Statements Atrial fibrillation Low voltage, precordial leads Abnormal R-wave progression, late transition Nonspecific ST and T wave abnormality Compared to ECG 11/08/2016 10:33:[address] and T wave abnormality is less pronounced heart rate has slowed Electronically Signed On 03-12-2017 11:05:49 CDT by Av Hall [email or web address] <ELECTRONICALLY SIGNED> By: Av Hall MD, [facility] 03/12/17 1105 3 3 Av Hall MD, [facility] /EPI
--- NOTE | ~2017-03-12 | 2DMMODE ---
[facility] [address] [place] [address] 2 D/M-MODE ECHOCARDIOGRAM Name: FRANCMITESHSANTIAGO DIAZ Room #: 247-P ADM IN M.R.#: [id number] Admission: 03/12/17 Attend Phys: Clifford Beltran, Discharge: Date of : 52 Date of Service: 03/13/17 1059 Report #: [id number] THIS REPORT FOR: //name// APPROVED REPORT Study performed: 03/13/2017 09:59:53 EXAM: Comprehensive 2D, Doppler, and color-flow Echocardiogram Patient Location: Bedside Room #: [facility] Status: routine BSA: 1.93 HR: 98 bpm BP: 123/59 mmHg Rhythm: NSR Other Information Study Quality: Adequate Technically limited study due to limited mobility. Patient in ICU on vent. Indications Pulmonary Hypertension Atrial Fibrillation Acute respiratory failure. 2D Dimensions RVDd: 48.43 mm LVEF(%): 53.99 (>50%) IVSd: 10.73 (7-11mm) LVOT Diam: 20.93 (18-24mm) LVDd: 43.61 mm PWd: 8.61 (7-11mm) Ascending Ao: 32.04 (22-36mm) LVDs: 31.53 (25-40mm) Aortic Root: 29.71 mm Marvin's LVEF: 53.99 % Volumes Left Atrial Volume (Systole) Single Plane 4CH: 83.24 mL Single Plane 2CH: 98.59 mL LA ESV Index: 50.00 mL/m2 Aortic Valve AoV Peak Vinh.: 1.43 m/s AO Peak Gr.: 9.88 mmHg LVOT Max P.66 mmHg LVOT Max V: 0.95 m/s STAN Vmax: 2.29 cm2 [facility] [place] [place] [address] 2 D/M-MODE ECHOCARDIOGRAM Name: MITESH BRUNER EMILY Room #: 247-P [facility] IN M.R.#: [id number] Admission: 03/12/17 Attend Phys: Clifford Beltran, Discharge: Date of : 52 Date of Service: 03/13/17 1059 Report #: [id number] Mitral Valve MV Decel. Time: 154.81 ms MV E Max Vinh.: 1.39 m/s Pulmonary Valve PV Peak Vinh.: 1.26 m/s PV Peak Gr.: 6.41 mmHg Tricuspid Valve TR Peak Vinh.: 3.30 m/s RAP Estimate: 10.00 mmHg TR Peak Gr.: 44.00 mmHg PA Pressure: 54.00 mmHg Left Ventricle The left ventricle is normal size. Flattened interventricular septum. There is normal left ventricular wall thickness. Left ventricular systolic function is normal. LVEF is 55%. This study is not technically sufficient to allow evaluation of the LV diastolic function due to atrial fibrillation. Right Ventricle Right ventricle is dilated. Atria Left atrium is severely dilated. Right atrium is severely dilated. Aortic Valve Aortic valve is mildly thickened and calcified. No aortic regurgitation is present. There is no aortic valvular stenosis. Mitral Valve Mitral valve leaflets are mildly thickened. Mild mitral annular calcification. Trace mitral regurgitation. Tricuspid Valve The tricuspid valve is normal in structure. Moderate tricuspid regurgitation. Estimated PAP is 55mmHg. Pulmonic Valve The pulmonary valve is normal in structure. Trace pulmonic regurgitation. Great Vessels The aortic root is normal in size. The ascending aorta is normal in [facility] [address] [place] [address] 2 D/M-MODE ECHOCARDIOGRAM Name: MITESH BRUNER Room #: 247-P [facility] IN ..#: [id number] Admission: 03/12/17 Attend Phys: Clifford Beltran, Discharge: Date of : 52 Date of Service: 03/13/17 1059 Report #: [id number] size. IVC is dilated and collapses <50% with inspiration. Pericardium There is no pericardial effusion. <Conclusion> The left ventricle is normal size. Left ventricular systolic function is normal. Right ventricle is dilated. Left atrium is severely dilated. Right atrium is severely dilated. There is no aortic valvular stenosis. Trace mitral regurgitation. Moderate tricuspid regurgitation. Estimated PAP is 55mmHg. There is no pericardial effusion. <ELECTRONICALLY SIGNED> By: Eyad Ace MD 03/13/17 1059 1059 1059 Eyad Ace MD /INF
--- NOTE | ~2017-03-12 | EKG ---
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 VAZ : 1950 Requested By: David Gipson Order Number: [id number] MD: Varun Naranjo Measurements Intervals [place] Rate: 82 P: SD: QRS: 234 QRSD: 97 T: -63 QT: 431 QTc: 504 Interpretive Statements Atrial fibrillation Right axis deviation Abnormal R-wave progression, late transition Abnormal T, consider ischemia, diffuse leads Prolonged QT interval Compared to ECG 03/13/2017 09:51:58 Right-axis deviation now present T-wave abnormality now present Possible ischemia now present Prolonged QT interval now present Electronically Signed On 03-14-2017 21:29:11 CDT by Varun Naranjo [email or web address] <ELECTRONICALLY SIGNED> By: Varun Naranjo MD 03/14/172128 40 40 Varun Naranjo MD /EPI
[2017-03-12 03:32] LABS: ABG SAMPLE TYPE ARTERIAL; BE(vivo) 3.4 mmol/L (-2 to +3); HCO3 29.3 mmol/L (22.0-26.0); LACTATE 2.16 mmol/L (0.5-2.0); O2(CT) 14.3 mL/dL (15.0-23.0); O2Hb 97.1 % (92.0-98.0); PCO2 51.8 mmHg (35.0-45.0); PO2 328.4 mmHg (80.0-100.0); STICK SITE R.RADIAL; TIDAL VOLUME 400 ml; pH 7.371 (7.360-7.450); sO2 99.7 % (92.0-98.0); tCO2 30.9 mmol/L (24.0-30.0)
[2017-03-12 04:10] LABS: HEMATOCRIT 27.5 % (37.0-47.0); HEMOGLOBIN 9.2 gm/dL (12.0-15.0); MCH 29.8 pg (26.0-34.0); MCHC 33.4 g/dL (28.0-37.0); MCV 89.2 fL (80.0-100.0); PLATELET COUNT 163 thou/uL (150-400); RBC 3.08 mil/uL (4.20-5.00); RDW 16.8 % (10.5-14.5); WBC 11.4 thou/uL (4.0-11.0)
[2017-03-12 04:17] LABS: MANUAL DIFF YES
[2017-03-12 04:23] LABS: POTASSIUM 3.1 mmol/L (3.5-5.1)
[2017-03-12 04:31] LABS: ALBUMIN 2.7 g/dL (3.4-5.0); TOTAL BILIRUBIN 0.5 mg/dL (<0.1-1.0); TOTAL PROTEIN 6.3 g/dL (6.4-8.2); TROPONIN-I 0.48 ng/mL (<0.04-0.07)
[2017-03-12 05:36] LABS: ABSOLUTE NEUTROPHILS 10.4 thou/uL (1.4-8.2); ANISOCYTOSIS SLIGHT; METAMYELOCYTES 1 %; TOTAL CELL COUNT 100
[2017-03-12 07:55] LABS: URINE BILIRUBIN NEGATIVE (Negative); URINE BLOOD NEGATIVE (Negative); URINE COLOR YELLOW; URINE GLUCOSE-RANDOM* NEGATIVE (Negative); URINE KETONES NEGATIVE (Negative); URINE LEUKOCYTES-REFLEX NEGATIVE (Negative); URINE PROTEIN (DIPSTICK) NEGATIVE (Negative)
[2017-03-12 14:56] LABS: APTT 36.5 Seconds (24.5-32.8); INR 1.2; PROTIME 12.6 Seconds (9.3-11.4)
[2017-03-13] VITALS (88 sets, daily range): BP systolic 78–148; BP diastolic 44–88
[2017-03-13 02:49] LABS: HEMATOCRIT 27.1 % (37.0-47.0); HEMOGLOBIN 8.8 gm/dL (12.0-15.0); MCH 29.2 pg (26.0-34.0); MCHC 32.4 g/dL (28.0-37.0); RBC 3.01 mil/uL (4.20-5.00); RDW 17.1 % (10.5-14.5); WBC 15.9 thou/uL (4.0-11.0)
[2017-03-13 03:06] LABS: ALBUMIN 2.7 g/dL (3.4-5.0); CALCIUM 8.2 mg/dL (8.5-10.1); CREATININE 0.7 mg/dL (0.6-1.0); POTASSIUM 3.2 mmol/L (3.5-5.1); TOTAL BILIRUBIN 0.5 mg/dL (<0.1-1.0); TOTAL PROTEIN 6.2 g/dL (6.4-8.2)
[2017-03-13 05:26] LABS: ABG SAMPLE TYPE ARTERIAL; BE(vivo) 1.8 mmol/L (-2 to +3); HCO3 27.1 mmol/L (22.0-26.0); LACTATE 1.45 mmol/L (0.5-2.0); O2(CT) 13.6 mL/dL (15.0-23.0); O2Hb 96.7 % (92.0-98.0); PCO2 45.3 mmHg (35.0-45.0); PO2 139.9 mmHg (80.0-100.0); STICK SITE RBA; TIDAL VOLUME 400 ml; pH 7.394 (7.360-7.450); sO2 98.8 % (92.0-98.0); tCO2 28.4 mmol/L (24.0-30.0)
[2017-03-13 05:27] LABS: ABG COMMENT AC14 400 +5 60%
[2017-03-14] VITALS (72 sets, daily range): BP systolic 100–147; BP diastolic 59–97
[2017-03-14 05:43] LABS: ABG SAMPLE TYPE ARTERIAL; BE(vivo) 4.5 mmol/L (-2 to +3); HCO3 29.3 mmol/L (22.0-26.0); LACTATE 0.91 mmol/L (0.5-2.0); O2(CT) 11.8 mL/dL (15.0-23.0); O2Hb 93.6 % (92.0-98.0); PCO2 45.2 mmHg (35.0-45.0); sO2 95.8 % (92.0-98.0); tCO2 30.7 mmol/L (24.0-30.0)
[2017-03-14 05:44] LABS: STICK SITE L.RADIAL; TIDAL VOLUME 400 ml
[2017-03-14 05:47] LABS: HEMATOCRIT 26.6 % (37.0-47.0); HEMOGLOBIN 8.7 gm/dL (12.0-15.0); MCH 29.4 pg (26.0-34.0); MCHC 32.6 g/dL (28.0-37.0); MCV 90.1 fL (80.0-100.0); RBC 2.95 mil/uL (4.20-5.00); WBC 10.9 thou/uL (4.0-11.0)
[2017-03-14 07:37] LABS: ALBUMIN 2.7 g/dL (3.4-5.0); CALCIUM 8.5 mg/dL (8.5-10.1); CREATININE 0.6 mg/dL (0.6-1.0); TOTAL BILIRUBIN 0.5 mg/dL (<0.1-1.0); TOTAL PROTEIN 6.2 g/dL (6.4-8.2)
[2017-03-14 07:41] LABS: POTASSIUM 2.9 mmol/L (3.5-5.1)
[2017-03-14 13:40] LABS: % SATURATION 6 % (20-39); IRON 19 ug/dL (50-170); TIBC 321 ug/dL (250-450); UIBC 302 ug/dL
[2017-03-14 15:07] LABS: HEMOGLOBIN 8.6 gm/dL (12.0-15.0)
[2017-03-14 15:58] LABS: ABG SAMPLE TYPE ARTERIAL; BE(vivo) 9.2 mmol/L (-2 to +3); HCO3 33.3 mmol/L (22.0-26.0); LACTATE 0.95 mmol/L (0.5-2.0); O2(CT) 12.7 mL/dL (15.0-23.0); O2Hb 95.8 % (92.0-98.0); PCO2 43.8 mmHg (35.0-45.0); PO2 101.5 mmHg (80.0-100.0); Pressure Support 8 cm H20; STICK SITE R.RADIAL; pH 7.499 (7.360-7.450); tCO2 34.7 mmol/L (24.0-30.0)
[2017-03-14 23:07] LABS: INFLUENZA B Negative (Negative); METAPNEUMOVIRUS Negative (Negative)
[2017-03-15] VITALS (24 sets, daily range): BP systolic 87–141; BP diastolic 46–84
[2017-03-15 05:50] LABS: HEMATOCRIT 25.5 % (37.0-47.0); HEMOGLOBIN 8.4 gm/dL (12.0-15.0); MCH 29.5 pg (26.0-34.0); MCV 89.4 fL (80.0-100.0); RBC 2.85 mil/uL (4.20-5.00); RDW 16.7 % (10.5-14.5); WBC 6.3 thou/uL (4.0-11.0)
[2017-03-15 06:17] LABS: ALBUMIN 2.4 g/dL (3.4-5.0); CALCIUM 8.9 mg/dL (8.5-10.1); CREATININE 0.6 mg/dL (0.6-1.0); MAGNESIUM 2.3 mg/dL (1.8-2.4); POTASSIUM 3.5 mmol/L (3.5-5.1); TOTAL BILIRUBIN 0.7 mg/dL (<0.1-1.0); TOTAL PROTEIN 6.7 g/dL (6.4-8.2)
[2017-03-16] VITALS (18 sets, daily range): BP systolic 73–125; BP diastolic 46–67
[2017-03-16 05:10] LABS: BASOPHILS 0.7 % (0.0-2.0); HEMATOCRIT 25.8 % (37.0-47.0); HEMOGLOBIN 8.5 gm/dL (12.0-15.0); LYMPHOCYTES 21.2 % (24.0-44.0); MCH 29.2 pg (26.0-34.0); MCHC 32.8 g/dL (28.0-37.0); MCV 88.9 fL (80.0-100.0); MONOCYTES 11.2 % (1.0-8.0); PLATELET COUNT 159 thou/uL (150-400); POLYS 64.9 % (36.0-66.0); RBC 2.91 mil/uL (4.20-5.00); RDW 16.6 % (10.5-14.5); WBC 4.6 thou/uL (4.0-11.0)
[2017-03-16 05:11] LABS: MANUAL DIFF NO
[2017-03-16 05:30] LABS: CALCIUM 8.6 mg/dL (8.5-10.1); CREATININE 0.6 mg/dL (0.6-1.0); MAGNESIUM 1.8 mg/dL (1.8-2.4); POTASSIUM 3.5 mmol/L (3.5-5.1)
[2017-03-16 11:59] LABS: MAGNESIUM 1.9 mg/dL (1.8-2.4); POTASSIUM 3.5 mmol/L (3.5-5.1)
[2017-03-17 03:56] VITALS: BP 123/47
[2017-03-17 06:32] LABS: HEMATOCRIT 25.7 % (37.0-47.0); HEMOGLOBIN 8.4 gm/dL (12.0-15.0); MCH 29.2 pg (26.0-34.0); MCHC 32.8 g/dL (28.0-37.0); RBC 2.88 mil/uL (4.20-5.00); RDW 16.4 % (10.5-14.5); WBC 4.5 thou/uL (4.0-11.0)
[2017-03-17 06:50] LABS: ALBUMIN 2.5 g/dL (3.4-5.0); CALCIUM 8.8 mg/dL (8.5-10.1); CREATININE 0.6 mg/dL (0.6-1.0); PHOSPHORUS 3.1 mg/dL (2.5-4.9); POTASSIUM 3.3 mmol/L (3.5-5.1)
[2017-03-17 08:15] VITALS: BP 109/57
[2017-03-17 13:00] VITALS: BP 111/52
[2017-03-17 16:52] VITALS: BP 109/57
[2017-03-17 20:00] VITALS: BP 119/54
[2017-03-18 04:00] VITALS: BP 124/64
[2017-03-18 05:33] LABS: HEMATOCRIT 25.8 % (37.0-47.0); HEMOGLOBIN 8.6 gm/dL (12.0-15.0); MCH 29.3 pg (26.0-34.0); MCHC 33.2 g/dL (28.0-37.0); MCV 88.1 fL (80.0-100.0); PLATELET COUNT 175 thou/uL (150-400); RBC 2.93 mil/uL (4.20-5.00); RDW 16.5 % (10.5-14.5); WBC 4.6 thou/uL (4.0-11.0)
[2017-03-18 05:40] LABS: MANUAL DIFF YES
[2017-03-18 05:45] LABS: CALCIUM 8.3 mg/dL (8.5-10.1); CREATININE 0.8 mg/dL (0.6-1.0); MAGNESIUM 1.7 mg/dL (1.8-2.4); POTASSIUM 3.3 mmol/L (3.5-5.1)
[2017-03-18 08:22] VITALS: BP 109/65
[2017-03-18 08:26] LABS: ABSOLUTE NEUTROPHILS 2.3 thou/uL (1.4-8.2); METAMYELOCYTES 4 %; MYELOCYTES 1 %; NUCLEATED RBCS 1 /100WBC; TOTAL CELL COUNT 100
[2017-03-18 08:27] LABS: ANISOCYTOSIS 1+; POLYCHROMASIA OCCASIONAL
[2017-03-18 11:09] VITALS: BP 107/56
[2017-03-18 16:37] VITALS: BP 105/63
[2017-03-18 19:12] VITALS: BP 117/61
[2017-03-19 03:22] VITALS: BP 104/64
[2017-03-19 06:44] LABS: HEMATOCRIT 25.4 % (37.0-47.0); HEMOGLOBIN 8.6 gm/dL (12.0-15.0); MCH 29.5 pg (26.0-34.0); MCHC 33.9 g/dL (28.0-37.0); RBC 2.92 mil/uL (4.20-5.00); WBC 4.3 thou/uL (4.0-11.0)
[2017-03-19 06:56] LABS: CALCIUM 8.6 mg/dL (8.5-10.1); CREATININE 0.8 mg/dL (0.6-1.0); POTASSIUM 3.4 mmol/L (3.5-5.1)
[2017-03-19 08:41] VITALS: BP 106/42
[2017-03-19 13:39] VITALS: BP 120/59
[2017-03-19 14:11] VITALS: BP 119/63
[2017-03-19 17:14] VITALS: BP 119/72
[2017-03-19 20:00] VITALS: BP 125/62
[2017-03-20 04:00] VITALS: BP 119/61
[2017-03-20 05:21] LABS: CALCIUM 8.9 mg/dL (8.5-10.1); CREATININE 0.9 mg/dL (0.6-1.0); POTASSIUM 3.6 mmol/L (3.5-5.1)
[2017-03-20 06:40] VITALS: BP 89/51
[2017-03-20 12:00] VITALS: BP 124/63
[2017-03-20] MEDS ORDERED: PROTONIX40 M1 PO (14:52)
[2017-03-20] MEDS ORDERED: TORSEMIDE20 MG PO (14:52)
[2017-03-20] MEDS ORDERED: XARELTO10 MG PO (14:52)
[2017-03-20] MEDS ORDERED: XARELTO15 MG PO (14:52)
[2017-03-20] MEDS ORDERED: LEVAQUIN 500 M500 M4 PO (14:52)
[2017-03-20] MEDS ORDERED: METOPROLOL SUCC25 M1 PO (14:52)
[2017-03-20] MEDS ORDERED: POTASSIUM20 PO (14:56)
[2017-03-20 15:04] VITALS: BP 124/63
[2017-03-20 15:52] VITALS: BP 124/63
== END 2017-03-20 16:50 | disposition home health service (06) | DRG 871 ==
LOC: ICU 00:29 → 3W 03-16 13:08 → ENTRNSPT 03-20 16:29 → 3W 03-20 16:50
PROVIDERS: Family Medicine; Hospitalist; Internal Medicine; Internal Medicine Geriatric Medicine; Internal Medicine Pulmonary Disease; Nurse Practitioner Adult Health; Nurse Practitioner Family; Specialist
PROC: 5A1945Z Respiratory Ventilation, 24-96 Consecutive Hours (ICD-10-PCS; principal; 2017-03-12)
PROC: B548ZZA Ultrasonography of Superior Vena Cava, Guidance (ICD-10-PCS; 2017-03-12)
PROC: 02HV33Z Insertion of Infusion Device into Superior Vena Cava, Percutaneous Approach (ICD-10-PCS; 2017-03-12)
PROC: 0DH68UZ Insertion of Feeding Device into Stomach, Via Natural or Artificial Opening Endoscopic (ICD-10-PCS; 2017-03-14)
PROC: 0W3P8ZZ Control Bleeding in Gastrointestinal Tract, Via Natural or Artificial Opening Endoscopic (ICD-10-PCS; 2017-03-14)
DX: A41.9 Sepsis, unspecified organism (principal); R65.21 Severe sepsis with septic shock; J69.0 Pneumonitis due to inhalation of food and vomit; J96.21 Acute and chronic respiratory failure with hypoxia; I50.43 Acute on chronic combined systolic (congestive) and diastolic (congestive) heart failure; I26.99 Other pulmonary embolism without acute cor pulmonale; L97.929 Non-pressure chronic ulcer of unspecified part of left lower leg with unspecified severity; E46 Unspecified protein-calorie malnutrition; I42.8 Other cardiomyopathies; K94.23 Gastrostomy malfunction; K92.2 Gastrointestinal hemorrhage, unspecified; L97.829 Non-pressure chronic ulcer of other part of left lower leg with unspecified severity; I34.0 Nonrheumatic mitral (valve) insufficiency; I27.20 Pulmonary hypertension, unspecified; K52.9 Noninfective gastroenteritis and colitis, unspecified; D64.9 Anemia, unspecified; R01.1 Cardiac murmur, unspecified; I11.0 Hypertensive heart disease with heart failure; E87.6 Hypokalemia; J44.9 Chronic obstructive pulmonary disease, unspecified; E88.09 Other disorders of plasma-protein metabolism, not elsewhere classified; Z68.30 Body mass index [BMI] 30.0-30.9, adult; E11.51 Type 2 diabetes mellitus with diabetic peripheral angiopathy without gangrene; K44.9 Diaphragmatic hernia without obstruction or gangrene; I48.0 Paroxysmal atrial fibrillation; G47.00 Insomnia, unspecified; I83.028 Varicose veins of left lower extremity with ulcer other part of lower leg; Z87.891 Personal history of nicotine dependence; Z88.0 Allergy status to penicillin; Z90.49 Acquired absence of other specified parts of digestive tract; Z85.43 Personal history of malignant neoplasm of ovary; Z86.718 Personal history of other venous thrombosis and embolism; Z23 Encounter for immunization
CPT/HCPCS: 10078; 10779

== ENCOUNTER → 2017-03-29 | Outpatient (CLI) | payer OTHER ==
[~2017-03-29] MED LIST changes: +LEVAQUIN 500 M500 M4 PO; +METOPROLOL SUCC25 M1 PO; +PROTONIX40 M1 PO; +TORSEMIDE20 MG PO; +XARELTO15 MG PO
== END ==
LOC: HYPER 07:25
DX: I87.332 Chronic venous hypertension (idiopathic) with ulcer and inflammation of left lower extremity (principal); L97.822 Non-pressure chronic ulcer of other part of left lower leg with fat layer exposed; I48.91 Unspecified atrial fibrillation; J44.9 Chronic obstructive pulmonary disease, unspecified; I11.0 Hypertensive heart disease with heart failure; I50.9 Heart failure, unspecified; I25.10 Atherosclerotic heart disease of native coronary artery without angina pectoris; Z86.718 Personal history of other venous thrombosis and embolism; Z86.711 Personal history of pulmonary embolism; Z87.01 Personal history of pneumonia (recurrent); F17.210 Nicotine dependence, cigarettes, uncomplicated; Z72.89 Other problems related to lifestyle

== ENCOUNTER → 2017-05-08 | Outpatient (CLI) | payer OTHER ==
[~2017-05-08] MED LIST changes: +CEFDINIR300 MG PO; +CEFUROXIME500 MG PO; +COZAAR 50 MG TA50 M1 PO; +ERYTHROMYCIN250 M1 PO; +LIDOCAINE1 EACH TOP; +SPIRIVA INH; +VENTOLIN HFA 1818 GM INH; +ZPAK PO
== END ==
LOC: HYPER 04-13 12:29
DX: I87.332 Chronic venous hypertension (idiopathic) with ulcer and inflammation of left lower extremity (principal); L97.822 Non-pressure chronic ulcer of other part of left lower leg with fat layer exposed; R60.9 Edema, unspecified; I48.91 Unspecified atrial fibrillation; J44.9 Chronic obstructive pulmonary disease, unspecified; I11.0 Hypertensive heart disease with heart failure; I50.9 Heart failure, unspecified; I25.10 Atherosclerotic heart disease of native coronary artery without angina pectoris; F17.210 Nicotine dependence, cigarettes, uncomplicated; Z86.718 Personal history of other venous thrombosis and embolism; Z85.828 Personal history of other malignant neoplasm of skin; Z86.711 Personal history of pulmonary embolism; Z90.710 Acquired absence of both cervix and uterus

== ENCOUNTER 2017-06-07 06:45 | Inpatient (IN) | payer OTHER ==
[~2017-06-07] VITALS: Ht 157.5 cm; Wt 56.2 kg
--- NOTE | ~2017-06-07 | HC ---
[facility] [address] [place] [address] CONSULTATION Name: MITESH BRUNER Room #: 432-P ADM IN M.R.#: [id number] Admission: 06/07/17 Attend Phys: Ang Reed MD Discharge: Date of : 51 Report #: [id number] THIS REPORT FOR: //name// CC: Perez Badillo DATE OF SERVICE: 06/08/2017 HISTORY OF PRESENT ILLNESS: This is a 66-year-old female patient with whom I am familiar. I saw her yesterday in the wound care clinic. She was noted to have a worsening wound infection involving her left ankle with additional left lower extremity cellulitis. She was also confused and it was felt that aggressive inpatient hospitalization would be required for antibiotic therapy. She is seen in her room today, said she is feeling significantly better and she is a little bit more coherent as well. She does complain of some pain in her left ankle, but states it feels much better than the previous day. PAST MEDICAL HISTORY: Positive for history of CHF, COPD, chronic venous ulceration, left lower extremity. ALLERGIES: PENICILLIN. PAST MEDICAL HISTORY: Also, positive for history of atrial fibrillation, previous cholecystectomy, history of tobacco use, respiratory failure requiring intubation on 2 occasions in 2017, protein-calorie malnutrition. SOCIAL HISTORY: The patient is a former smoker. Denies alcohol use. REVIEW OF SYSTEMS: CONSTITUTIONAL: The patient denies fever, chills, weight loss. NEUROLOGICAL: The patient has focal weakness. ENT: The patient denies earache, nasal drainage, sore throat. CARDIOVASCULAR: The patient denies chest pain or palpitations, diaphoresis. PULMONARY: The patient denies cough, shortness of breath. GASTROINTESTINAL: The patient denies nausea, diarrhea or abdominal pain. ORTHOPEDIC: The patient does complain of pain in her left lower extremity as detailed above. REVIEW OF SYSTEMS: Other systems, 12-point review of systems are negative. PHYSICAL EXAMINATION: VITAL SIGNS: At this time include pulse rate 63, respiratory rate 18, blood pressure 115/70, temperature 97.8. GENERAL: This is a chronically ill-appearing female patient appears to be in minimal distress. [address] [address] CONSULTATION Name: MITESH BRUNER Room #: 432-[facility] IN .R.#: [id number] Admission: 06/07/17 Attend Phys: Ang Reed MD Discharge: Date of : 52 Report #: [id number] HEAD: Normocephalic. Nose and throat clear. NECK: Supple. LUNGS: Clear. HEART: Regular, without murmur. ABDOMEN: Soft. EXTREMITIES: Demonstrate diminished distal pulses. She has 2+ edema bilaterally. She has erythema involving the left lower extremity, was improved since yesterday. There is still some drainage and odor from the left lateral ankle wound, now it is a little bit body cleaner and less erythematous in the periwound area. CLINICAL IMPRESSION: 1. Left lower extremity venous ulceration with wound infection. 2. Cellulitis, left lower extremity. 3. Chronic obstructive pulmonary disease and congestive heart failure with history of respiratory failure. 4. Mental status changes, likely secondary to the infectious process involving her left leg. RECOMMENDATIONS: At this point in time, continue with local care of the area with TheraHoney and a foam dressing, lightly placed Otis wrap for some compression and elevation. She is on intravenous antibiotic therapy. Cultures are pending. We will recommend continued aggressive nutritional support to maximize wound healing. I appreciate being asked to see her in consultation. <ELECTRONICALLY SIGNED> By: Perez Marcelo MD 06/09/17 0857 1841 0148 Perez Marcelo MD /nt
[2017-06-07 14:50] VITALS: BP 129/58
[2017-06-07 19:44] VITALS: BP 86/42
[2017-06-07 21:38] LABS: HEMATOCRIT 32.6 % (37.0-47.0); HEMOGLOBIN 10.6 gm/dL (12.0-15.0); MCH 29.7 pg (26.0-34.0); MCHC 32.5 g/dL (28.0-37.0); MCV 91.6 fL (80.0-100.0); RBC 3.56 mil/uL (4.20-5.00); RDW 15.6 % (10.5-14.5); WBC 11.9 thou/uL (4.0-11.0)
[2017-06-07 22:01] LABS: CALCIUM 8.7 mg/dL (8.5-10.1); POTASSIUM 3.6 mmol/L (3.5-5.1)
[2017-06-08 05:07] VITALS: BP 106/49
[2017-06-08 06:19] LABS: HEMATOCRIT 30.8 % (37.0-47.0); HEMOGLOBIN 10.3 gm/dL (12.0-15.0); MCH 30.5 pg (26.0-34.0); MCHC 33.3 g/dL (28.0-37.0); MCV 91.8 fL (80.0-100.0); RBC 3.36 mil/uL (4.20-5.00); RDW 15.9 % (10.5-14.5); WBC 7.6 thou/uL (4.0-11.0)
[2017-06-08 06:34] LABS: CALCIUM 8.8 mg/dL (8.5-10.1); CREATININE 0.9 mg/dL (0.6-1.0); POTASSIUM 3.7 mmol/L (3.5-5.1)
[2017-06-08 08:00] VITALS: BP 1158/70
[2017-06-08 09:45] LABS: ALBUMIN 2.9 g/dL (3.4-5.0); DIRECT BILIRUBIN 0.1 mg/dL (<0.1-0.3); TOTAL BILIRUBIN 0.6 mg/dL (<0.1-1.0); TOTAL PROTEIN 6.8 g/dL (6.4-8.2)
[2017-06-08] MEDS ORDERED: LOPERAMIDE 2 MG2 M1 PO (14:15)
[2017-06-08] MEDS ORDERED: KLOR-CON 1010 MEQ PO (14:15)
[2017-06-08] MEDS ORDERED: COZAAR 50 MG TA50 M2 PO (14:15)
[2017-06-08 20:23] VITALS: BP 94/58
[2017-06-09 05:00] VITALS: BP 89/44
[2017-06-09 05:55] VITALS: BP 104/58
[2017-06-09 08:30] VITALS: BP 110/50
[2017-06-09 13:57] VITALS: BP 104/58
[2017-06-09 15:40] VITALS: BP 107/49
[2017-06-09 19:45] VITALS: BP 129/72
[2017-06-10 04:35] VITALS: BP 120/50
[2017-06-10 08:00] VITALS: BP 121/53
[2017-06-10] MEDS ORDERED: CLEOCIN HCL300 MG PO (10:49)
[2017-06-10 11:09] VITALS: BP 104/58
[2017-12-12] MEDS ORDERED: PROTONIX40 M1 PO (11:29)
[2017-12-12] MEDS ORDERED: XARELTO20 MG PO (11:30)
[2017-12-12] MEDS ORDERED: LOPERAMIDE 2 MG2 M1 PO (11:31)
[2017-12-12] MEDS ORDERED: DEMADEX20 MG PO (11:31)
[2017-12-12] MEDS ORDERED: PROTONIX 20 MG20 M1 PO (11:32)
[2017-12-12] MEDS ORDERED: BANOPHEN25 M1 PO (11:34)
== END 2017-06-10 12:09 | disposition home or self-care (01) | DRG 603 ==
LOC: HYPER 06:45 → 4E 14:00
PROVIDERS: Internal Medicine
DX: L03.116 Cellulitis of left lower limb (principal); L97.329 Non-pressure chronic ulcer of left ankle with unspecified severity; I50.9 Heart failure, unspecified; I27.20 Pulmonary hypertension, unspecified; I73.9 Peripheral vascular disease, unspecified; I48.91 Unspecified atrial fibrillation; J44.9 Chronic obstructive pulmonary disease, unspecified; Z88.0 Allergy status to penicillin; Z90.49 Acquired absence of other specified parts of digestive tract; Z87.891 Personal history of nicotine dependence; Z85.43 Personal history of malignant neoplasm of ovary; Z86.718 Personal history of other venous thrombosis and embolism; Z86.711 Personal history of pulmonary embolism; Z79.899 Other long term (current) drug therapy; Z90.710 Acquired absence of both cervix and uterus; Z98.84 Bariatric surgery status; Z28.21 Immunization not carried out because of patient refusal
CPT/HCPCS: 10783

== ENCOUNTER → 2017-06-29 | Outpatient (CLI) | payer OTHER ==
[~2017-06-29] MED LIST changes: +ACETAMINOPHEN325 M1 PO; +AZITHROMYCIN 2250 MG PO; +BANOPHEN25 M1 PO; +CARTIA XT120 M1 PO; +CLEOCIN HCL150 MG PO; +CLEOCIN HCL300 MG PO; +FOSAMAX 70 MG T70 MG PO; +KEFLEX500 M1 PO; +KLOR-CON 1010 MEQ PO; +MELATONIN5 M1 PO; +MUCINEX600 MG PO; +PROTONIX 20 MG20 M1 PO; +REGLAN 10 MG TA10 MG PO; +REGLAN 5 MG TAB5 MG PO; +VITAMIN B12-FO1 EAC1 PO; +XARELTO20 MG PO
== END ==
LOC: SLEEPLAB 20:59
DX: G47.33 Obstructive sleep apnea (adult) (pediatric) (principal)

== ENCOUNTER → 2017-06-29 | Outpatient (CLI) | payer OTHER | LOC: HYPER 06-26 07:04 | DX: I87.332 Chronic venous hypertension (idiopathic) with ulcer and inflammation of left lower extremity (principal); L97.321 Non-pressure chronic ulcer of left ankle limited to breakdown of skin; R60.9 Edema, unspecified; J44.9 Chronic obstructive pulmonary disease, unspecified; I48.91 Unspecified atrial fibrillation; I11.0 Hypertensive heart disease with heart failure; I50.9 Heart failure, unspecified; E66.9 Obesity, unspecified; I25.10 Atherosclerotic heart disease of native coronary artery without angina pectoris; F17.210 Nicotine dependence, cigarettes, uncomplicated; Z90.710 Acquired absence of both cervix and uterus; Z72.0 Tobacco use; Z72.89 Other problems related to lifestyle; Z86.711 Personal history of pulmonary embolism; Z85.828 Personal history of other malignant neoplasm of skin; Z86.718 Personal history of other venous thrombosis and embolism ==

== ENCOUNTER → 2017-07-06 | Outpatient (CLI) | payer OTHER | LOC: HYPER 08:16 | DX: I87.332 Chronic venous hypertension (idiopathic) with ulcer and inflammation of left lower extremity (principal); L97.322 Non-pressure chronic ulcer of left ankle with fat layer exposed; I48.91 Unspecified atrial fibrillation; J44.9 Chronic obstructive pulmonary disease, unspecified; I11.0 Hypertensive heart disease with heart failure; I50.9 Heart failure, unspecified; I25.10 Atherosclerotic heart disease of native coronary artery without angina pectoris; E66.9 Obesity, unspecified; F17.210 Nicotine dependence, cigarettes, uncomplicated; Z72.89 Other problems related to lifestyle; Z86.718 Personal history of other venous thrombosis and embolism; Z85.41 Personal history of malignant neoplasm of cervix uteri; Z86.711 Personal history of pulmonary embolism; Z90.710 Acquired absence of both cervix and uterus; Z90.49 Acquired absence of other specified parts of digestive tract; Z68.31 Body mass index [BMI] 31.0-31.9, adult ==

== ENCOUNTER → 2017-07-20 | Outpatient (CLI) | payer OTHER | LOC: HYPER 07-13 06:50 | DX: I87.332 Chronic venous hypertension (idiopathic) with ulcer and inflammation of left lower extremity (principal); L97.321 Non-pressure chronic ulcer of left ankle limited to breakdown of skin; R60.9 Edema, unspecified; I48.91 Unspecified atrial fibrillation; J44.9 Chronic obstructive pulmonary disease, unspecified; I11.0 Hypertensive heart disease with heart failure; I50.9 Heart failure, unspecified; I25.10 Atherosclerotic heart disease of native coronary artery without angina pectoris; E66.9 Obesity, unspecified; Z68.31 Body mass index [BMI] 31.0-31.9, adult; Z86.711 Personal history of pulmonary embolism; Z86.718 Personal history of other venous thrombosis and embolism; Z85.828 Personal history of other malignant neoplasm of skin ==

== ENCOUNTER 2017-07-27 10:28 | Inpatient (IN) | payer OTHER ==
[~2017-07-27] VITALS: Ht 157.5 cm; Wt 81.6 kg
--- NOTE | ~2017-07-27 | EKG ---
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
--- NOTE | ~2017-07-27 | HC ---
[facility] [place] [address] [place] [address] CONSULTATION Name: MITESH BRUNER Room #: 422-P ADM IN M.R.#: [id number] Admission: 07/27/17 Attend Phys: Markie Hannah MD Discharge: Date of : 52 Report #: [id number] THIS REPORT FOR: //name// CC: Markie Badillo DATE OF SERVICE: 07/28/2017 CHIEF COMPLAINT: Ulceration, left lower extremity. HISTORY OF PRESENT ILLNESS: This is a 66-year-old female patient with whom I am familiar from outpatient evaluation as well as previous hospitalization. She has been admitted to the hospital with altered mental status, shortness of breath, cough, and likely pneumonia. She has had a chronic ulceration involving the left lateral ankle and foot for some time. We have been following her clinically and she has been slowly improving. PAST MEDICAL HISTORY: Positive for history of healthcare-associated pneumonia, chronic ulceration to the left lower extremity, congestive heart failure, cellulitis, venous insufficiency, and history of sepsis. Positive for history of gastric bypass, ovarian cancer, PVD, history of GI bleeding, general debility. MEDICATIONS: Include torsemide, rivaroxaban, potassium, diltiazem, Fosamax. SOCIAL HISTORY: The patient is a former smoker, having smoked 2-1/2 packs per day for 40 years. Denies alcohol or drug use. FAMILY HISTORY: Noncontributory. REVIEW OF SYSTEMS: CONSTITUTIONAL: The patient denies fever, chills or weight loss. NEUROLOGICAL: The patient denies focal weakness, numbness or tingling. EYES: The patient denies visual changes, redness or drainage. ENT: The patient denies earache, nasal drainage or sore throat. CARDIOVASCULAR: The patient denies chest pain, palpitation or diaphoresis. PULMONARY: The patient does complain of cough and mild shortness of breath. Denies hemoptysis. GASTROINTESTINAL: The patient denies nausea, vomiting, diarrhea or abdominal pain. ORTHOPEDIC: The patient notes the ulceration on her left lower extremity. Other systems in a 14-point review of systems are negative. PHYSICAL EXAMINATION: VITAL SIGNS: Pulse 73, respiratory rate 18, blood pressure 118/58, temperature 98.1. [address] [address] CONSULTATION Name: MITESH BRUNER Room #: 422-P [facility] IN ..#: [id number] Admission: 07/27/17 Attend Phys: Markie Hannah MD Discharge: Date of : 51 Report #: [id number] GENERAL: This is a chronically ill-appearing patient who appears to be in minimal distress. HEENT: Head normocephalic. Nose and throat are clear. NECK: Supple. LUNGS: Diminished. HEART: Regular rate and rhythm. ABDOMEN: Soft. Bowel sounds present. EXTREMITIES: Demonstrate diminished distal pulses, 1+ edema. There is circular ulceration on her left ankle and foot that is actually improved since last evaluation. LABORATORY DATA: Sodium 140, potassium 3.9, chloride 106, CO2 of 26, BUN 14, creatinine 0.8, glucose 101. CLINICAL IMPRESSION: 1. Chronic ulceration, left lower extremity. 2. Venous insufficiency. 3. Peripheral arterial disease. 4. Community-acquired pneumonia. 5. Moderate protein-calorie malnutrition. RECOMMENDATIONS: At this point in time, we will recommend topical care. We will use Puracol Ag covered by bordered foam dressing to be changed 3 days per week. Elevation of the extremities when possible. Continue with aggressive nutritional support to maximize wound healing. Continue all current medications. I appreciate being asked to see her in consultation. <ELECTRONICALLY SIGNED> By: Perez Marcelo MD 07/29/17 1356 1910 0347 Perez Marcelo MD /nt
[~2017-07-27 10:28] MED LIST changes: -ACETAMINOPHEN325 M1 PO; -AZITHROMYCIN 2250 MG PO; -BANOPHEN25 M1 PO; -CARTIA XT120 M1 PO; -CLEOCIN HCL150 MG PO; -FOSAMAX 70 MG T70 MG PO; -KEFLEX500 M1 PO; -MELATONIN5 M1 PO; -MUCINEX600 MG PO; -PROTONIX 20 MG20 M1 PO; -REGLAN 10 MG TA10 MG PO; -REGLAN 5 MG TAB5 MG PO; -VITAMIN B12-FO1 EAC1 PO; -XARELTO20 MG PO
[2017-07-27 10:33] VITALS: BP 130/53
[2017-07-27 11:17] LABS: URINE BILIRUBIN NEGATIVE (Negative); URINE BLOOD NEGATIVE (Negative); URINE CLARITY CLEAR; URINE COLOR YELLOW; URINE GLUCOSE-RANDOM* NEGATIVE (Negative); URINE KETONES NEGATIVE (Negative); URINE LEUKOCYTES-REFLEX NEGATIVE (Negative); URINE NITRITE-REFLEX NEGATIVE (Negative); URINE PROTEIN (DIPSTICK) NEGATIVE (Negative); URINE UROBILINOGEN 0.2 E.U./dl (0.2-1.0)
[2017-07-27 11:27] LABS: AMP/METHAMP Negative (Negative); BARBITURATES Negative (Negative); BENZODIAZEPINES Negative (Negative); COCAINE Negative (Negative); METHADONE Negative (Negative); OPIATES Negative (Negative); PCP Negative (Negative)
[2017-07-27 11:34] LABS: EOSINOPHILS 0.2 % (0.0-3.0); HEMATOCRIT 31.3 % (37.0-47.0); HEMOGLOBIN 10.1 gm/dL (12.0-15.0); LYMPHOCYTES 7.8 % (24.0-44.0); MCHC 32.4 g/dL (28.0-37.0); MCV 92.6 fL (80.0-100.0); MONOCYTES 5.2 % (1.0-8.0); PLATELET COUNT 191 thou/uL (150-400); POLYS 86.8 % (36.0-66.0); RBC 3.38 mil/uL (4.20-5.00); RDW 16.2 % (10.5-14.5); WBC 10.4 thou/uL (4.0-11.0)
[2017-07-27 11:50] LABS: CALCIUM 8.8 mg/dL (8.5-10.1); POTASSIUM 3.6 mmol/L (3.5-5.1)
[2017-07-27 11:58] LABS: ALBUMIN 3.3 g/dL (3.4-5.0); MAGNESIUM 1.9 mg/dL (1.8-2.4); TOTAL BILIRUBIN 0.6 mg/dL (<0.1-1.0); TOTAL PROTEIN 7.3 g/dL (6.4-8.2); TROPONIN-I 0.07 ng/mL (<0.06)
[2017-07-27] MEDS ORDERED: CARTIA XT120 M1 PO (12:49)
[2017-07-27] MEDS ORDERED: FOSAMAX 70 MG T70 MG PO (12:49)
[2017-07-27 12:58] VITALS: BP 130/53
[2017-07-27 13:00] VITALS: BP 130/53
[2017-07-27 13:14] VITALS: BP 118/53
[2017-07-27 14:18] VITALS: BP 116/68
[2017-07-27] MEDS ORDERED: NEURONTIN 300300 M1 PO (19:16)
[2017-07-27 20:00] VITALS: BP 120/89
[2017-07-28 04:25] VITALS: BP 97/48
[2017-07-28 05:19] LABS: CALCIUM 8.4 mg/dL (8.5-10.1); CREATININE 0.8 mg/dL (0.6-1.0); POTASSIUM 3.9 mmol/L (3.5-5.1)
[2017-07-28 05:20] LABS: HEMATOCRIT 23.6 % (37.0-47.0); MCH 30.7 pg (26.0-34.0); MCHC 33.5 g/dL (28.0-37.0); MCV 91.7 fL (80.0-100.0); RBC 2.58 mil/uL (4.20-5.00); RDW 15.8 % (10.5-14.5); WBC 7.7 thou/uL (4.0-11.0)
[2017-07-28 05:29] LABS: HEMOGLOBIN 7.9 gm/dL (12.0-15.0)
[2017-07-28 14:08] VITALS: BP 118/58
[2017-07-28 17:20] VITALS: BP 118/58
[2017-07-28 19:30] VITALS: BP 130/53
[2017-07-29 03:28] VITALS: BP 137/59
[2017-07-29 07:15] VITALS: BP 130/47
[2017-07-29 15:15] VITALS: BP 129/63
[2017-07-29 20:00] VITALS: BP 131/54
[2017-07-30 04:00] VITALS: BP 114/48
[2017-07-30 08:09] VITALS: BP 147/74
[2017-07-30] MEDS ORDERED: PROTONIX40 M1 PO (10:07)
[2017-07-30] MEDS ORDERED: CLEOCIN HCL150 MG PO (10:07)
[2017-07-30 10:38] VITALS: BP 118/58
[2017-07-30 10:46] VITALS: BP 118/58
[2017-12-12] MEDS ORDERED: PROTONIX40 M1 PO (11:29)
[2017-12-12] MEDS ORDERED: XARELTO20 MG PO (11:30)
[2017-12-12] MEDS ORDERED: LOPERAMIDE 2 MG2 M1 PO (11:31)
[2017-12-12] MEDS ORDERED: DEMADEX20 MG PO (11:31)
[2017-12-12] MEDS ORDERED: PROTONIX 20 MG20 M1 PO (11:32)
[2017-12-12] MEDS ORDERED: BANOPHEN25 M1 PO (11:34)
== END 2017-07-30 12:39 | disposition home or self-care (01) | DRG 177 ==
LOC: ER 10:28 → EROBS 12:44 → 4E 12:44
PROVIDERS: Emergency Medicine; Hospitalist
DX: J69.0 Pneumonitis due to inhalation of food and vomit (principal); E43 Unspecified severe protein-calorie malnutrition; L97.329 Non-pressure chronic ulcer of left ankle with unspecified severity; I73.9 Peripheral vascular disease, unspecified; I27.20 Pulmonary hypertension, unspecified; I50.9 Heart failure, unspecified; D64.9 Anemia, unspecified; I87.2 Venous insufficiency (chronic) (peripheral); E66.01 Morbid (severe) obesity due to excess calories; J44.9 Chronic obstructive pulmonary disease, unspecified; K21.9 Gastro-esophageal reflux disease without esophagitis; G47.33 Obstructive sleep apnea (adult) (pediatric); I48.2 Chronic atrial fibrillation; Z85.43 Personal history of malignant neoplasm of ovary; Z90.49 Acquired absence of other specified parts of digestive tract; Z86.711 Personal history of pulmonary embolism; Z86.718 Personal history of other venous thrombosis and embolism; Z88.0 Allergy status to penicillin; Z87.891 Personal history of nicotine dependence; Z68.32 Body mass index [BMI] 32.0-32.9, adult; Z90.710 Acquired absence of both cervix and uterus; Z82.49 Family history of ischemic heart disease and other diseases of the circulatory system; Z79.899 Other long term (current) drug therapy; Z98.84 Bariatric surgery status
CPT/HCPCS: 10183

== ENCOUNTER 2017-08-05 10:44 | Inpatient (IN) | payer OTHER ==
[~2017-08-05] VITALS: Ht 157.5 cm; Wt 81.6 kg
--- NOTE | ~2017-08-05 | HC ---
[facility] [place] [address] [place] [address] CONSULTATION Name: MITESH BRUNER Room #: 427-P ADM IN M.R.#: [id number] Admission: 08/05/17 Attend Phys: Isiah Youngblood Discharge: Date of : 51 Report #: [id number] THIS REPORT FOR: //name// CC: Isiah Badillo DATE OF SERVICE: 08/07/2017 CHIEF COMPLAINT: Venous ulcer, left lower extremity. HISTORY OF PRESENT ILLNESS: This is a 66-year-old female patient with whom I am familiar from a very recent hospitalization. She has been readmitted to the hospital with pneumonia. I have been following her for an ulceration on the left lateral ankle for some time. She has been slowly improving. The patient denies pain in this area. She does complain of cough at this time. PAST MEDICAL HISTORY: Positive for healthcare-associated pneumonia, chronic ulceration of the left lower extremity, congestive heart failure, cellulitis and venous insufficiency. She has a history of previous gastric bypass, ovarian cancer and peripheral vascular disease. MEDICATIONS: Include torsemide, rivaroxaban, potassium, diltiazem and Fosamax. SOCIAL HISTORY: The patient is a former smoker, having smoked 2-1/2 packs per day for 40 years. Denies alcohol or drug use. FAMILY HISTORY: Noncontributory. REVIEW OF SYSTEMS: CONSTITUTIONAL: Denies fever, chills or weight loss. NEUROLOGICAL: The patient denies focal weakness, numbness or tingling. EYES: The patient denies visual changes, redness or drainage. ENT: The patient denies earache, nasal drainage or sore throat. CARDIOVASCULAR: The patient denies chest pain, palpitations or diaphoresis. PULMONARY: The patient does complain of shortness of breath and cough with some sputum production. She denies hemoptysis. GASTROINTESTINAL: The patient denies nausea, vomiting, diarrhea or abdominal pain. ORTHOPEDIC: The patient does note the ulceration of the left lower extremity. Other systems in a 14-point review of systems are negative. PHYSICAL EXAMINATION: VITAL SIGNS: At this time include pulse 71, respiration 20, blood pressure 148/51 and temperature 97.6. GENERAL: This is a chronically ill-appearing female [place] [address] CONSULTATION Name: MITESH BRUNER Room #: 427-P [facility] IN M.R.#: [id number] Admission: 08/05/17 Attend Phys: Isiah Youngblood Discharge: Date of : 52 Report #: [id number] minimal distress. HEENT: Head is normocephalic. Nose and throat are clear. NECK: Supple. LUNGS: Diminished. HEART: Regular rhythm. ABDOMEN: Soft. Bowel sounds present. EXTREMITIES: Demonstrate diminished yet palpable distal pulses. She has venous type ulceration of the left lower extremity, mix of fibrin and granulation tissue present. It is not overtly infected. CLINICAL IMPRESSION: 1. Chronic venous ulceration of the left lower extremity. 2. Venous insufficiency. 3. Peripheral arterial disease. 4. Healthcare-associated pneumonia. 5. Moderate protein-calorie malnutrition. RECOMMENDATIONS: At this point in time, we will recommend topical Puracol AG followed by a bordered foam dressing to be changed 3 days per week. Elevation of the extremities and aggressive nutritional support to maximize wound healing. Continue current medications. I appreciate being asked her in consultation. <ELECTRONICALLY SIGNED> By: Perez Marcelo MD 08/08/17 1716 1841 2129 Perez Marcelo MD /nt
--- NOTE | ~2017-08-05 | EKG ---
[address] [place] [place] [address] ELECTROCARDIOGRAM REPORT Name: MITESH BRUNER 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 Technician: Jennifer ROSEN : 1950 Requested By: Thaddeus Thapa Order Number: [id number] MD: Eyad Ace Measurements Intervals [place] Rate: 86 P: CT: QRS: 229 QRSD: 94 T: QT: 412 QTc: 493 Interpretive Statements Atrial fibrillation Nonspecific T abnrm, anterolateral leads Borderline prolonged QT interval Compared to ECG 07/27/2017 11:18:10 Left-axis deviation no longer present Electronically Signed On 08-05-2017 12:27:37 RESPIRATORY DIRECTOR by Eyad Ace [email or web address] <ELECTRONICALLY SIGNED> By: Eyad Ace MD 08/05/17 1227 1100 MD GREGORY Isbell
--- NOTE | ~2017-08-05 | HC ---
[facility] [address] [place] [address] CONSULTATION Name: MITESH BRUNER Room #: 427-P ADM IN M.R.#: [id number] Admission: 08/05/17 Attend Phys: Isiah Youngblood Discharge: Date of : 52 Report #: [id number] THIS REPORT FOR: //name// CC: Isiah Badillo DATE OF SERVICE: 08/06/2017 ATTENDING PHYSICIAN: Dr. Garrido. REASON FOR CONSULTATION: Recurrent aspiration pneumonitis. HISTORY OF PRESENT ILLNESS: Chart reviewed, patient examined. 66-year-old female with several hospitalizations over the course of the last year, primarily related to pneumonitis. She does have extensive medical history including gastric bypass surgery in the late 1980s, has a large hiatal hernia. The patient was just hospitalized earlier this month with same, had improved by the time of discharge on 07/30 with recommendations for swelling precautions. She was evaluated in the ER with complaints of progressive weakness, with course of last 2 days prior, had apparently incontinence with diarrhea, was quite extensive, fairly profound encephalopathy as well. Overall, she is improved today. She is not on supplemental oxygen, maintaining saturations. She is producing sputum, empirically started on combination therapy with cefepime and metronidazole. Chest CT multifocal consolidative pneumonitis involving the right upper lobe, mid and lower lobe as well with mild effusion on the right side, pleural thickening. ALLERGIES: LISTED TO PENICILLINS. CURRENT MEDICATIONS: Include pantoprazole, enoxaparin, metoclopramide, Flagyl, cefepime, morphine, zolpidem, ondansetron. PAST MEDICAL HISTORY: As noted above, history of ovarian cancer, gastric bypass, atrial fibrillation, chronic anemia, peripheral vascular disease, pulmonary hypertension, has cardiomyopathy, history of congestive heart failure, previous history of gastrointestinal hemorrhage, right lung pulmonary embolus, history of left lower DVT. SOCIAL HISTORY: Former smoker. No ethanol. FAMILY HISTORY: Noncontributory. REVIEW OF SYSTEMS: As above. She has had one loose stool overnight. Denies significant amount of abdominal related pain. PHYSICAL EXAMINATION: [facility] [address] [place] [address] CONSULTATION Name: FRANCMITESH Room #: 427-P [facility] IN ..#: [id number] Admission: 08/05/17 Attend Phys: Isiah Youngblood Discharge: Date of : 52 Report #: [id number] GENERAL: Appears chronically ill, undernourished, is pleasant, cooperative. She is not encephalopathic. VITAL SIGNS: T-max 100.7, more recently 98.4. Pulse 72, respirations 17, blood pressure 108/60. SKIN: Warm, dry, no rashes. HEENT: Unremarkable. She is not on supplemental oxygen at this point. NECK: Supple. LUNGS: Few scattered coarse breath sounds. HEART: Regular, soft systolic murmur. ABDOMEN: Soft, nontender, nondistended. There are no peritoneal signs. GENITOURINARY: Deferred. RECTAL: Deferred. LABORATORY DATA: CBC: White count of 15.1, up from 10.0 on admission. Hemoglobin 8.0, hematocrit 24.2, platelets of 210. CT chest as noted above. Lactic acid serially 2.2 and then 1.2. Blood cultures sterile from the 15th. Electrolytes: Sodium 141, potassium 3.3, chloride 106, bicarb is 26, BUN and creatinine 16 and 1.0, albumin 2.8. Total protein is 6.7. LFTs unremarkable. ProBNP of 2900. ASSESSMENT: Multifocal pneumonitis in a patient who was recently hospitalized for same, certainly raises the likelihood that this is indeed an additional aspiration event. It is not clear the encephalopathy was due to the diarrhea, is being evaluated and C. diff is pending. She is on metronidazole at this point. It is not severe and ongoing. She has got no significant abdominal-related findings. We will send a sputum for culture and usually, she is producing sputum and see how she does clinically. She is very opposed to any sort of long-term enteral feeding tube. There is a means of maintaining her nutrition. There may be a component of malabsorption as well transition to oral antibiotics and discharged. At this point, she is not overtly toxic. We will discuss with Dr. Santiago. <ELECTRONICALLY SIGNED> By: Dre Edmondson MD 08/06/17 0923 0633 0704 Dre Edmondson MD /nt
[2017-08-05 10:44] VITALS: BP 118/53
[~2017-08-05 10:44] MED LIST changes: +CARTIA XT120 M1 PO; +CLEOCIN HCL150 MG PO; +FOSAMAX 70 MG T70 MG PO
[2017-08-05 12:15] LABS: HEMATOCRIT 31.7 % (37.0-47.0); HEMOGLOBIN 10.7 gm/dL (12.0-15.0); MCH 30.7 pg (26.0-34.0); MCHC 33.6 g/dL (28.0-37.0); MCV 91.4 fL (80.0-100.0); RBC 3.47 mil/uL (4.20-5.00); RDW 16.1 % (10.5-14.5)
[2017-08-05 12:33] LABS: CALCIUM 8.5 mg/dL (8.5-10.1); POTASSIUM 3.3 mmol/L (3.5-5.1)
[2017-08-05 12:35] LABS: ALBUMIN 2.8 g/dL (3.4-5.0); TOTAL BILIRUBIN 0.5 mg/dL (<0.1-1.0); TOTAL PROTEIN 6.7 g/dL (6.4-8.2)
[2017-08-05 13:57] VITALS: BP 106/40
[2017-08-05 14:31] VITALS: BP 105/42
[2017-08-05 15:00] VITALS: BP 111/58
[2017-08-05 20:30] VITALS: BP 120/49
[2017-08-06 03:54] VITALS: BP 108/60
[2017-08-06 04:48] LABS: ABSOLUTE NEUTROPHILS 13.2 thou/uL (1.4-8.2); BASOPHILS 0.2 % (0.0-2.0); EOSINOPHILS 0.2 % (0.0-3.0); HEMATOCRIT 24.2 % (37.0-47.0); MCH 29.9 pg (26.0-34.0); MCV 90.7 fL (80.0-100.0); MONOCYTES 3.9 % (1.0-8.0); PLATELET COUNT 210 thou/uL (150-400); POLYS 87.7 % (36.0-66.0); RBC 2.67 mil/uL (4.20-5.00); WBC 15.1 thou/uL (4.0-11.0)
[2017-08-06 07:10] VITALS: BP 121/61
[2017-08-06 15:45] VITALS: BP 148/71
[2017-08-06 20:00] VITALS: BP 126/72
[2017-08-07 04:00] VITALS: BP 137/70
[2017-08-07 08:31] VITALS: BP 123/42
[2017-08-07 16:12] VITALS: BP 148/51
[2017-08-07 19:59] VITALS: BP 161/85
[2017-08-08 01:49] VITALS: BP 149/71
[2017-08-08 03:34] VITALS: BP 125/97
[2017-08-08 07:10] VITALS: BP 149/71
[2017-08-08 12:32] VITALS: BP 167/88
[2017-08-08 16:10] VITALS: BP 154/74
[2017-08-08 20:30] VITALS: BP 144/62
[2017-08-09 04:24] VITALS: BP 131/53
[2017-08-09 08:13] VITALS: BP 182/86
[2017-08-09] MEDS ORDERED: CEFDINIR300 MG PO (10:14)
[2017-08-09] MEDS ORDERED: REGLAN 5 MG TAB5 MG PO (10:14)
[2017-08-09 11:23] VITALS: BP 182/86
[2017-12-12] MEDS ORDERED: PROTONIX40 M1 PO (11:29)
[2017-12-12] MEDS ORDERED: XARELTO20 MG PO (11:30)
[2017-12-12] MEDS ORDERED: DEMADEX20 MG PO (11:31)
[2017-12-12] MEDS ORDERED: LOPERAMIDE 2 MG2 M1 PO (11:31)
[2017-12-12] MEDS ORDERED: PROTONIX 20 MG20 M1 PO (11:32)
[2017-12-12] MEDS ORDERED: BANOPHEN25 M1 PO (11:34)
== END 2017-08-09 13:25 | disposition home health service (06) | DRG 177 ==
LOC: ER 10:44 → 4E 13:50 → EROBS 13:50 → 4E 14:32 → ENTRNSPT 08-09 13:06 → 4E 08-09 13:25
PROVIDERS: Emergency Medicine; Hospitalist
DX: J69.0 Pneumonitis due to inhalation of food and vomit (principal); J96.01 Acute respiratory failure with hypoxia; I42.9 Cardiomyopathy, unspecified; L97.929 Non-pressure chronic ulcer of unspecified part of left lower leg with unspecified severity; E44.0 Moderate protein-calorie malnutrition; I48.91 Unspecified atrial fibrillation; I73.9 Peripheral vascular disease, unspecified; I50.9 Heart failure, unspecified; I27.20 Pulmonary hypertension, unspecified; K21.9 Gastro-esophageal reflux disease without esophagitis; D64.9 Anemia, unspecified; M41.9 Scoliosis, unspecified; I87.2 Venous insufficiency (chronic) (peripheral); E86.0 Dehydration; Z86.711 Personal history of pulmonary embolism; Z86.718 Personal history of other venous thrombosis and embolism; Z85.43 Personal history of malignant neoplasm of ovary; Z90.49 Acquired absence of other specified parts of digestive tract; Z98.84 Bariatric surgery status; Z79.899 Other long term (current) drug therapy; Z88.0 Allergy status to penicillin; Z87.891 Personal history of nicotine dependence; Z82.49 Family history of ischemic heart disease and other diseases of the circulatory system; Z68.32 Body mass index [BMI] 32.0-32.9, adult; Z90.710 Acquired absence of both cervix and uterus; Z87.11 Personal history of peptic ulcer disease
CPT/HCPCS: 10783

== ENCOUNTER 2017-08-18 19:08 | Emergency (ER) | payer OTHER ==
[~2017-08-18] VITALS: Ht 157.5 cm; Wt 83.5 kg
[~2017-08-18 19:08] MED LIST changes: +REGLAN 5 MG TAB5 MG PO
[2017-08-18] MEDS ORDERED: KEFLEX500 M1 PO (21:37)
[2017-08-18 21:41] VITALS: BP 154/60
[2017-12-12] MEDS ORDERED: PROTONIX40 M1 PO (11:29)
[2017-12-12] MEDS ORDERED: XARELTO20 MG PO (11:30)
[2017-12-12] MEDS ORDERED: LOPERAMIDE 2 MG2 M1 PO (11:31)
[2017-12-12] MEDS ORDERED: DEMADEX20 MG PO (11:31)
[2017-12-12] MEDS ORDERED: PROTONIX 20 MG20 M1 PO (11:32)
[2017-12-12] MEDS ORDERED: BANOPHEN25 M1 PO (11:34)
== END 2017-08-18 21:45 | disposition home or self-care (01) ==
LOC: ER 19:08
DX: K13.4 Granuloma and granuloma-like lesions of oral mucosa (principal); I11.0 Hypertensive heart disease with heart failure; I50.9 Heart failure, unspecified; I48.91 Unspecified atrial fibrillation; Z90.49 Acquired absence of other specified parts of digestive tract

== ENCOUNTER → 2017-08-24 | Outpatient (CLI) | payer OTHER ==
[~2017-08-24] MED LIST changes: +ACETAMINOPHEN325 M1 PO; +AZITHROMYCIN 2250 MG PO; +BANOPHEN25 M1 PO; +KEFLEX500 M1 PO; +MELATONIN5 M1 PO; +MUCINEX600 MG PO; +PROTONIX 20 MG20 M1 PO; +REGLAN 10 MG TA10 MG PO; +VITAMIN B12-FO1 EAC1 PO; +XARELTO20 MG PO
== END ==
LOC: HYPER 07-27 06:51 → RAD 12:08
DX: J90 Pleural effusion, not elsewhere classified (principal); R06.00 Dyspnea, unspecified; Z88.5 Allergy status to narcotic agent; Z88.0 Allergy status to penicillin

== ENCOUNTER 2017-08-29 09:11 | Inpatient (IN) | payer OTHER ==
[~2017-08-29] VITALS: Ht 152.4 cm; Wt 73.0 kg
--- NOTE | ~2017-08-29 | HC ---
[facility] [place] [place] [address] CONSULTATION Name: MITESH BRUNER Room #: 444-P [facility] IN M.R.#: [id number] Admission: 08/29/17 Attend Phys: Isiah Youngblood Discharge: 08/30/17 Date of : 52 Report #: [id number] THIS REPORT FOR: //name// CC: Isiah Badillo DATE OF SERVICE: 08/30/2017 TYPE OF REPORT: Wound care consultation. REASON FOR CONSULTATION: Chronic nonhealing venous stasis ulceration of left ankle. HISTORY OF PRESENT ILLNESS: The patient is a 66-year-old woman, very well known to Dr. Walter Swift from care at [facility]. She has had a chronic nonhealing wound of the left ankle for many months. The patient was currently admitted for suspicion of aspiration pneumonia via the Emergency Room. She presented to the Emergency Room short of breath with cough and confusion with shivering chills. Aspiration pneumonia was suspected. The patient has been treated with IV antibiotics. Wound care was consulted due to her chronic wound of her left ankle, being treated as outpatient by Dr. Walter Swift. PAST MEDICAL HISTORY: History of deep vein thrombosis, history of pulmonary embolism, history of congestive heart failure and atrial fibrillation, history of pyogenic granuloma of the lip, history of respiratory failure during this admission, and history of ovarian cancer. ALLERGIES: PENICILLIN. MEDICATIONS: Include Protonix, torsemide, Xarelto, potassium chloride, Neurontin, diltiazem and Fosamax. PAST SURGICAL HISTORY: Gastric bypass and cholecystectomy. PHYSICAL EXAMINATION: GENERAL: Shows a well-appearing, thin elderly woman, alert and conversant. HEENT: Mucous membranes are moist. NECK: Supple. LUNGS: Respirations nonlabored. ABDOMEN: Soft. EXTREMITIES: Examination of lower extremities shows palpable dorsalis pedis pulse of the left foot. Over the left ankle in the region of the left lateral malleolus, there is present an irregularly-shaped 2 cm x 1.5 cm chronic-appearing ulcer with fat layer exposed. There is adherent exudate at the base. There is no cellulitis. Ulcer appears chronic. [facility] [address] [place] [address] CONSULTATION Name: MITESH BRUNER Room #: 444-P [facility] IN [facility].#: [id number] Admission: 08/29/17 Attend Phys: Isiah Youngblood Discharge: 08/30/17 Date of : 52 Report #: [id number] IMPRESSION: 1. Venous stasis ulceration of the lower extremities with chronic ulceration. 2. Admission for respiratory distress, respiratory failure, reflux and pneumonia. 3. Debility. 4. Protein-calorie malnutrition. 5. History of pulmonary embolism. 6. History of deep vein thrombosis. PLAN: The patient is being medically treated with antibiotics for her pneumonia. She will be discharged soon. Home wound care consists of TheraHoney with a dressing applied to the wound daily. The patient will follow up at [facility] with Dr. Walter Swift for further care of the venous stasis ulcer. <ELECTRONICALLY SIGNED> By: Burt De Leon MD 09/03/17 2114 1141 1201 Burt De Leon MD /nt
--- NOTE | ~2017-08-29 | EKG ---
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
[~2017-08-29 09:11] MED LIST changes: -ACETAMINOPHEN325 M1 PO; -AZITHROMYCIN 2250 MG PO; -BANOPHEN25 M1 PO; -MELATONIN5 M1 PO; -MUCINEX600 MG PO; -PROTONIX 20 MG20 M1 PO; -REGLAN 10 MG TA10 MG PO; -VITAMIN B12-FO1 EAC1 PO; -XARELTO20 MG PO
[2017-08-29 09:12] VITALS: BP 155/46
[2017-08-29 09:34] VITALS: BP 155/46
[2017-08-29 10:05] LABS: ABSOLUTE NEUTROPHILS 8.5 thou/uL (1.4-8.2); BASOPHILS 0.3 % (0.0-2.0); EOSINOPHILS 0.5 % (0.0-3.0); HEMOGLOBIN 10.8 gm/dL (12.0-15.0); LYMPHOCYTES 5.7 % (24.0-44.0); MCH 30.3 pg (26.0-34.0); MCHC 32.6 g/dL (28.0-37.0); MCV 93.1 fL (80.0-100.0); MONOCYTES 4.3 % (1.0-8.0); PLATELET COUNT 117 thou/uL (150-400); POLYS 89.2 % (36.0-66.0); RBC 3.55 mil/uL (4.20-5.00); RDW 18.5 % (10.5-14.5); WBC 9.6 thou/uL (4.0-11.0)
[2017-08-29 10:23] LABS: ANION GAP 9 mmol/L (7-16); BUN 18 mg/dL (7-18); CALCIUM 8.9 mg/dL (8.5-10.1); CHLORIDE 102 mmol/L (98-107); CO2 22 mmol/L (21-32); GLUCOSE 98 mg/dL (74-106); SGOT 48 U/L (15-37); SGPT 17 U/L (30-65); SODIUM 133 mmol/L (136-145); TOTAL BILIRUBIN 0.6 mg/dL (<0.1-1.0); TOTAL PROTEIN 7.5 g/dL (6.4-8.2); TROPONIN-I < 0.04 ng/mL (<0.06)
[2017-08-29 10:32] LABS: ALBUMIN 3.4 g/dL (3.4-5.0); CREATININE 0.6 mg/dL (0.6-1.0)
[2017-08-29 14:06] LABS: URINE BILIRUBIN NEGATIVE (Negative); URINE BLOOD NEGATIVE (Negative); URINE CLARITY CLEAR; URINE COLOR YELLOW; URINE GLUCOSE-RANDOM* NEGATIVE (Negative); URINE KETONES TRACE (Negative); URINE LEUKOCYTES TRACE (Negative); URINE NITRITE NEGATIVE (Negative); URINE PROTEIN (DIPSTICK) NEGATIVE (Negative); URINE UROBILINOGEN 0.2 E.U./dl (0.2-1.0)
[2017-08-29 14:30] VITALS: BP 122/39
[2017-08-29 14:50] VITALS: BP 118/52
[2017-08-29 15:03] VITALS: BP 108/51
[2017-08-29 19:47] VITALS: BP 108/57
[2017-08-30 03:10] VITALS: BP 115/51
[2017-08-30 05:34] LABS: HEMATOCRIT 27.9 % (37.0-47.0); HEMOGLOBIN 9.1 gm/dL (12.0-15.0); MCH 29.7 pg (26.0-34.0); MCHC 32.8 g/dL (28.0-37.0); MCV 90.6 fL (80.0-100.0); RBC 3.08 mil/uL (4.20-5.00); RDW 17.5 % (10.5-14.5); WBC 12.3 thou/uL (4.0-11.0)
[2017-08-30 05:50] LABS: CREATININE 0.7 mg/dL (0.6-1.0)
[2017-08-30 06:01] LABS: POTASSIUM 3.3 mmol/L (3.5-5.1)
[2017-08-30 08:00] VITALS: BP 124/59
[2017-08-30] MEDS ORDERED: REGLAN 5 MG TAB5 MG PO (10:34)
[2017-08-30] MEDS ORDERED: CEFUROXIME500 MG PO (10:35)
[2017-08-30 10:50] VITALS: BP 124/59
[2017-08-30 11:06] VITALS: BP 124/59
[2017-12-12] MEDS ORDERED: PROTONIX40 M1 PO (11:29)
[2017-12-12] MEDS ORDERED: XARELTO20 MG PO (11:30)
[2017-12-12] MEDS ORDERED: LOPERAMIDE 2 MG2 M1 PO (11:31)
[2017-12-12] MEDS ORDERED: DEMADEX20 MG PO (11:31)
[2017-12-12] MEDS ORDERED: PROTONIX 20 MG20 M1 PO (11:32)
[2017-12-12] MEDS ORDERED: BANOPHEN25 M1 PO (11:34)
== END 2017-08-30 13:53 | disposition home or self-care (01) | DRG 177 ==
LOC: ER 09:11 → EROBS 11:20 → 4S 11:20 → ENTRNSPT 08-30 13:39 → EDTRNSPTSTS 08-30 13:41 → 4S 08-30 13:53
PROVIDERS: Internal Medicine Pulmonary Disease; Nurse Practitioner Family
DX: J69.0 Pneumonitis due to inhalation of food and vomit (principal); J96.01 Acute respiratory failure with hypoxia; I48.91 Unspecified atrial fibrillation; I73.9 Peripheral vascular disease, unspecified; I27.20 Pulmonary hypertension, unspecified; K21.9 Gastro-esophageal reflux disease without esophagitis; I50.9 Heart failure, unspecified; I87.2 Venous insufficiency (chronic) (peripheral); Z85.43 Personal history of malignant neoplasm of ovary; Z86.718 Personal history of other venous thrombosis and embolism; Z86.711 Personal history of pulmonary embolism; Z87.891 Personal history of nicotine dependence; Z98.84 Bariatric surgery status; Z90.49 Acquired absence of other specified parts of digestive tract; Z79.01 Long term (current) use of anticoagulants; Z79.899 Other long term (current) drug therapy; Z88.0 Allergy status to penicillin
CPT/HCPCS: 10195

== ENCOUNTER → 2017-08-31 | Day surgery (SDC) | payer OTHER ==
[~2017-08-31] VITALS: Ht 157.5 cm; Wt 78.0 kg
[~2017-08-31] MED LIST changes: +ACETAMINOPHEN325 M1 PO; +AZITHROMYCIN 2250 MG PO; +BANOPHEN25 M1 PO; +MELATONIN5 M1 PO; +MUCINEX600 MG PO; +PROTONIX 20 MG20 M1 PO; +REGLAN 10 MG TA10 MG PO; +VITAMIN B12-FO1 EAC1 PO; +XARELTO20 MG PO
--- NOTE | ~2017-08-31 | S ---
[facility] [address] [place] [address] SURGICAL PATH RPT PROCEDURE Name: MITESH MATHEWS Room #: REG [facility]#: [id number] Admission: 08/31/17 Date of : 52 Discharge: Report #: [id number] Path Case #: [id number] PATHOLOGY REPORT COLLECTION DATE: 08/31/2017 RECEIVED DATE: 08/31/2017 SUBMITTING PHYS: Dr. Rodolfo Perea OTHER PHYS: SPECIMEN(S) RECEIVED: A.Left lip lesion * * * * * * * * * * * * FINAL DIAGNOSIS: "Left lip lesion", excision: - Squamous mucosa, submucosa, and skeletal muscle with lobular capillary hemangioma (pyogenic granuloma), ulcerated. (CLW:catalina; 09/01/2017) PATHOLOGIST: Rosie Frias M.D. REPORT ELECTRONICALLY SIGNED BY: Rosie Frias M.D. DATE/TIME: 09/01/2017 15:08 * * * * * * * * * * * * GROSS PATHOLOGY: The specimen is received fresh from the OR labeled, "Mitesh Mathews and left lip lesion stitch is 10:00". It consists of an oriented triangular portion of lip skin/mucosa and subcutaneous/submucosal tissue measuring 1.5 x 1.0 cm. It is excised to a depth of 0.5 cm. The mucosa is remarkable for a 0.5 x 0.6 x 0.7 cm exophytic crusted lesion. The lateral margin (12:00-6:00) is inked black (12:00-3:00) and orange (3:00-6:00). The medial half (6:00-12:00) is inked blue. The specimen is serially sectioned and entirely submitted for one frozen section. The frozen section is then submitted as FSA1. (CLW:catalina; 08/31/2017) FROZEN SECTION DIAGNOSIS: Rosie Frias M.D. "Left lip lesion": - Margins free of lesion. The case is discussed with Dr. Perea in the frozen section area and a written report is placed in the patient's chart. Testing performed by [facility] at [facility] [address] [place] [address] SURGICAL PATH RPT PROCEDURE Name: MITESH MATHEWS Room #: REG [facility]#: [id number] Admission: 08/31/17 Date of : 52 Discharge: Report #: [id number] Path Case #: [id number] CLINICAL HISTORY: Left lip lesion INITIAL CPT CODE(S): A; 03452, 26665 Professional services performed by [facility] at [facility] [address] [place] [address] Technical services performed by [facility] at [address] [place] [address], [address], [place] [address]. [facility] [place] [id number] PHONE: [phone] DIRECTOR: Jus Costa M.D. * * * END OF REPORT * * *
--- NOTE | ~2017-08-31 | O ---
[facility] [place] [place] [address] OPERATIVE REPORT Name: MITESH BRUNER Room #: REG [facility].#: [id number] Admission: 08/31/17 Attend Phys: Rodolfo Perea MD Discharge: Date of : 52 Report #: [id number] THIS REPORT FOR: //name// CC: Mich Perea DATE OF SERVICE: 08/31/2017 PREOPERATIVE DIAGNOSIS: Left upper lip lesion, possible skin cancer. POSTOPERATIVE DIAGNOSIS: Left upper lip lesion. Final path pending. Margins clear. PROCEDURE PERFORMED: Excision of left upper lip lesion. ANESTHESIA: IV sedation, local 0.25% Marcaine. COMPLICATIONS: None. ESTIMATED BLOOD LOSS: 10 mL. PROCEDURE NOTE: With the patient under IV sedation, the left lip was prepped with Betadine, toweled off in sterile fashion. A 0.25% Marcaine was used to anesthetize the skin. An ellipse was drawn around the lesion. This was an exophytic lesion with a base. The length of the ellipse is 2.5 cm and the width is over a centimeter. This was carried down to the subcutaneous tissue. Specimen was sent to pathology with a stitch placed superior medial border of the ellipse at 10 to 11 o'clock. Frozen section was done. This likely could be an inflammatory lesion rather than cancer. Margins are clear. The skin was closed with 6-0 nylon on the front of vermilion border up to the normal part of the skin. A 5-0 Vicryl was placed on the inner side of the incision. The wound was closed without difficulty. Antibiotic ointment was put on this. No dressings applied. The patient was taken to recovery room having tolerated the procedure well. <ELECTRONICALLY SIGNED> By: Rodolfo Perea MD 09/27/17 1413 1139 1201 Rodolfo Perea MD /nt
[2017-08-31 08:03] LABS: HEMOGLOBIN 9.5 gm/dL (12.0-15.0)
[2017-08-31 08:46] VITALS: BP 127/71
[2017-08-31 10:22] VITALS: BP 127/71
== END | disposition home or self-care (01) ==
LOC: TBA 05:24 → OR 05:24 → EDSTATUS 07:47 → OR 08:48 → EDSTATUS 16:11 → PRE 16:11 → OR 16:12
PROVIDERS: Surgery
DX: D18.01 Hemangioma of skin and subcutaneous tissue (principal); I50.9 Heart failure, unspecified; Z88.0 Allergy status to penicillin; Z79.899 Other long term (current) drug therapy; Z98.890 Other specified postprocedural states; Z87.01 Personal history of pneumonia (recurrent)
CPT/HCPCS: 50010; 50101; 50386; 56526; 56528; 62110; 62850; 70005

== ENCOUNTER → 2017-10-05 | Outpatient (CLI) | payer OTHER ==
[~2017-10-05] MED LIST changes: -ACETAMINOPHEN325 M1 PO; -AZITHROMYCIN 2250 MG PO; -BANOPHEN25 M1 PO; -MELATONIN5 M1 PO; -MUCINEX600 MG PO; -PROTONIX 20 MG20 M1 PO; -REGLAN 10 MG TA10 MG PO; -VITAMIN B12-FO1 EAC1 PO; -XARELTO20 MG PO
== END ==
LOC: HYPER 09-12 16:13
DX: I87.332 Chronic venous hypertension (idiopathic) with ulcer and inflammation of left lower extremity (principal); L97.822 Non-pressure chronic ulcer of other part of left lower leg with fat layer exposed; I11.0 Hypertensive heart disease with heart failure; I50.9 Heart failure, unspecified; I48.91 Unspecified atrial fibrillation; I25.10 Atherosclerotic heart disease of native coronary artery without angina pectoris; E66.9 Obesity, unspecified; J44.9 Chronic obstructive pulmonary disease, unspecified; F17.210 Nicotine dependence, cigarettes, uncomplicated; Z86.718 Personal history of other venous thrombosis and embolism; Z85.41 Personal history of malignant neoplasm of cervix uteri; Z86.711 Personal history of pulmonary embolism; Z90.710 Acquired absence of both cervix and uterus

== ENCOUNTER 2017-11-14 15:05 | Inpatient (IN) | payer OTHER ==
[~2017-11-14] VITALS: Ht 157.5 cm; Wt 75.7 kg
--- NOTE | ~2017-11-14 | EKG ---
[address] [address] ELECTROCARDIOGRAM REPORT Name: FRANCMITESH DIAZ Room #: REG [facility]#: [id number] Admission: 11/14/17 Attend Phys: Discharge: Date of : 52 Report #: [id number] THIS REPORT FOR: //name// 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
--- NOTE | ~2017-11-14 | HC ---
[facility] [address] [place] [address] CONSULTATION Name: MITESH BRUNER Room #: 358-P [facility] IN .R.#: [id number] Admission: 11/14/17 Attend Phys: Edmundo Mo MD Discharge: 11/16/17 Date of : 51 Report #: [id number] THIS REPORT FOR: //name// CC: Ana Mo DATE OF SERVICE: 11/15/2017 CHIEF COMPLAINT: Left lateral ankle ulceration. HISTORY OF PRESENT ILLNESS: This is a 66-year-old female patient with whom we are familiar from the wound care service who is admitted to the hospital with general weakness and confusion. We have followed her for an ulceration on her left leg for a while. She denies some mild pain associated with this and states that she has been doing dressing changes at home. PAST MEDICAL HISTORY: Positive for history of pulmonary effusion, history of atrial fibrillation, chronic venous type ulceration to the left leg, history of atrial fibrillation, chronic diarrhea, history of ovarian cancer, previous left leg DVT, history of previous gastric bypass. SOCIAL HISTORY: The patient is a previous smoker, smoking 1 pack per day, having quit greater than 1 year ago. No recent alcohol use. FAMILY HISTORY: Noncontributory. REVIEW OF SYSTEMS: CONSTITUTIONAL: The patient denies fever, chills or weight loss. NEUROLOGICAL: The patient denies focal weakness. She does note some confusion. ENT: The patient denies earache, nasal drainage or sore throat. CARDIOVASCULAR: The patient does complain of shortness especially with exertion. Denies cough or hemoptysis. GASTROINTESTINAL: The patient denies nausea or abdominal pain. GENITOURINARY: The patient denies frequency or urgency of urination. Denies dysuria. ORTHOPEDIC: The patient does note the ulceration on her left leg. Other systems in a 14-point review of systems are negative. PHYSICAL EXAMINATION: VITAL SIGNS: At this time include pulse 70, respiratory rate of 18, blood pressure 111/69, temperature 98.1. GENERAL: This is a chronically ill-appearing female patient appears to be in minimal distress. HEAD: Normocephalic. NECK: Supple. LUNGS: Clear. [facility] [address] [place] [address] CONSULTATION Name: MITESH BRUNER Room #: 358-P [facility]#: [id number] Admission: 11/14/17 Attend Phys: Edmundo Mo MD Discharge: 11/16/17 Date of : 52 Report #: [id number] HEART: Regular rate and rhythm. ABDOMEN: Soft, bowel sounds present. EXTREMITIES: Lower extremities demonstrate a small ulceration on the right lateral ankle. There is a mixed of granulation and fibrin more fibrinous material on the base. This is not easily pulled away with moistened gauze. CLINICAL IMPRESSION: Venous type ulceration in the right lateral ankle. RECOMMENDATIONS: At this point in time, we will recommend a quarter strength Dakin's moist gauze dressing change b.i.d. for a wild in an attempt to clean it up. There is some odor. Culture has been obtained. Recommend elevation for edema control at this time. I appreciate being asked to see her in consultation. <ELECTRONICALLY SIGNED> By: Perez Marcelo MD 11/17/17 1130 1644 0135 Perez Marcelo MD /nt
--- NOTE | ~2017-11-14 | HC ---
[facility] [place] [address] [place] [address] CONSULTATION Name: MITESH BRUNER Room #: 358-P [facility] IN .R.#: [id number] Admission: 11/14/17 Attend Phys: Edmundo Mo MD Discharge: 11/16/17 Date of : 52 Report #: [id number] THIS REPORT FOR: //name// CC: Ana Mo DATE OF SERVICE: 11/14/2017 REASON FOR CONSULTATION: Pneumonia. IMPRESSION: 1. Right greater than left infiltrate, probable aspiration pneumonia. 2. Possible congestive heart failure. 3. Nonhealing wound. 4. Hiatal hernia. 5. Atrial fibrillation. PLAN: 1. Sputum Gram stain and C and S. 2. Mild diuresis. 3. Continue anticoagulation. 4. Reflux precautions. 5. Fluid restrict. HISTORY OF PRESENT ILLNESS: A 66-year-old female who relates she has not been eating correctly and has gone over her liquid intake. She also complains of reflux and feels she may have refluxed and aspirated. Her oxygen saturation has fluctuated and came in with altered mental status. A CT head had been ordered. The patient had seen Dr. William yesterday, but was doing better by the time she saw him. PAST SURGICAL HISTORY: Gastric bypass, cholecystectomy. MEDICATIONS: Include Protonix, torsemide, Xarelto, Reglan. ALLERGIES: PENICILLIN. SOCIAL HISTORY: Positive tobacco in past. Negative current ETOH or drugs of abuse. REVIEW OF SYSTEMS: Denied fever or chills. Positive shortness of breath, cough. Mild peripheral edema. No definite chest pain, nonhealing wound on left leg. PHYSICAL EXAMINATION: VITAL SIGNS: Blood pressure 113/66, temperature 37.3, pulse 59, respirations [facility] [address] [place] [address] CONSULTATION Name: MITESH BRUNER Room #: 358-P [facility] IN .R.#: [id number] Admission: 11/14/17 Attend Phys: Edmundo Mo MD Discharge: 11/16/17 Date of : 52 Report #: [id number]. EYES: Negative icterus. NECK: Negative JVD. LUNGS: Showed few crackles, right greater than left. HEART: Irregular. ABDOMEN: Bowel sounds present. EXTREMITIES: Showed trace edema, left ankle wound. NEUROLOGIC: Alert, oriented. LABORATORY DATA: BNP 2837, creatinine 0.9, potassium 3.5. ASSESSMENT AND PLAN: She also complains of her leg jumping at times. Chest x-ray showed bilateral infiltrates. We will follow closely with you. <ELECTRONICALLY SIGNED> By: Octavio Plummer MD 11/20/17 1407 2332 0409 Octavio Plummer MD /nt
[2017-11-14 15:10] VITALS: BP 113/66
[2017-11-14 15:31] LABS: ABSOLUTE NEUTROPHILS 9.2 thou/uL (1.4-8.2); BASOPHILS 0.1 % (0.0-2.0); EOSINOPHILS 0.4 % (0.0-3.0); HEMATOCRIT 31.9 % (37.0-47.0); HEMOGLOBIN 10.4 gm/dL (12.0-15.0); LYMPHOCYTES 7.7 % (24.0-44.0); MCH 28.9 pg (26.0-34.0); MCHC 32.7 g/dL (28.0-37.0); MCV 88.4 fL (80.0-100.0); MONOCYTES 4.4 % (1.0-8.0); PLATELET COUNT 341 thou/uL (150-400); POLYS 87.4 % (36.0-66.0); RDW 16.4 % (10.5-14.5); WBC 10.6 thou/uL (4.0-11.0)
[2017-11-14 15:42] LABS: ANION GAP 7 mmol/L (7-16); BUN 16 mg/dL (7-18); CALCIUM 8.6 mg/dL (8.5-10.1); CHLORIDE 100 mmol/L (98-107); CO2 30 mmol/L (21-32); CREATININE 0.9 mg/dL (0.6-1.0); GLUCOSE 120 mg/dL (74-106); POTASSIUM 3.5 mmol/L (3.5-5.1); SODIUM 137 mmol/L (136-145)
[2017-11-14 15:53] LABS: ALBUMIN 3.2 g/dL (3.4-5.0); SGOT 15 U/L (15-37); SGPT 12 U/L (30-65); TOTAL BILIRUBIN 0.5 mg/dL (<0.1-1.0); TROPONIN-I < 0.04 ng/mL (<0.06)
[2017-11-14 17:32] VITALS: BP 126/60
[2017-11-14 20:00] VITALS: BP 95/48
[2017-11-15] VITALS (7 sets, daily range): BP systolic 95–124; BP diastolic 48–77
[2017-11-15 03:49] LABS: URINE BILIRUBIN NEGATIVE (Negative); URINE BLOOD NEGATIVE (Negative); URINE CLARITY CLEAR; URINE COLOR YELLOW; URINE GLUCOSE-RANDOM* NEGATIVE (Negative); URINE KETONES NEGATIVE (Negative); URINE NITRITE-REFLEX NEGATIVE (Negative); URINE PROTEIN (DIPSTICK) NEGATIVE (Negative); URINE SPECIFIC GRAVITY <= 1.005 (1.005-1.035); URINE UROBILINOGEN 0.2 E.U./dl (0.2-1.0)
[2017-11-15 03:50] LABS: URINE LEUKOCYTES-REFLEX 1+ (Negative)
[2017-11-15 04:00] LABS: CASTS None Seen /LPF (None Seen); MUCUS None Seen strn/LPF (None Seen); SQUAMOUS None Seen /LPF (0-3); URINE RBC None Seen /HPF (0-2); URINE WBC-REFLEX 0-5 Rare /HPF (0-5)
[2017-11-15 04:01] LABS: BACTERIA-REFLEX 1-9 Few /HPF (None Seen); CRYSTALS None Seen /LPF (None Seen)
[2017-11-15 05:24] LABS: ABSOLUTE NEUTROPHILS 4.2 thou/uL (1.4-8.2); BASOPHILS 0.6 % (0.0-2.0); EOSINOPHILS 0.9 % (0.0-3.0); HEMATOCRIT 26.1 % (37.0-47.0); HEMOGLOBIN 8.7 gm/dL (12.0-15.0); LYMPHOCYTES 18.4 % (24.0-44.0); MCHC 33.2 g/dL (28.0-37.0); MCV 87.2 fL (80.0-100.0); MONOCYTES 5.3 % (1.0-8.0); POLYS 74.8 % (36.0-66.0); RDW 16.2 % (10.5-14.5); WBC 5.6 thou/uL (4.0-11.0)
[2017-11-15 05:28] LABS: PLATELET COUNT 265 thou/uL (150-400)
[2017-11-15 05:39] LABS: ALBUMIN 2.6 g/dL (3.4-5.0); CALCIUM 8.6 mg/dL (8.5-10.1); CREATININE 0.9 mg/dL (0.6-1.0); POTASSIUM 3.7 mmol/L (3.5-5.1); TOTAL BILIRUBIN 0.5 mg/dL (<0.1-1.0); TOTAL PROTEIN 6.1 g/dL (6.4-8.2)
[2017-11-16 03:30] VITALS: BP 106/55
[2017-11-16 06:02] LABS: HEMATOCRIT 27.6 % (37.0-47.0); MCH 28.7 pg (26.0-34.0); MCHC 32.8 g/dL (28.0-37.0); MCV 87.6 fL (80.0-100.0); RBC 3.15 mil/uL (4.20-5.00); RDW 16.1 % (10.5-14.5); WBC 4.8 thou/uL (4.0-11.0)
[2017-11-16 06:14] LABS: CALCIUM 9.1 mg/dL (8.5-10.1); POTASSIUM 3.2 mmol/L (3.5-5.1)
[2017-11-16 12:15] VITALS: BP 126/61
[2017-11-16 12:28] VITALS: BP 111/69
[2017-11-16] MEDS ORDERED: MUCINEX600 MG PO (13:51)
[2017-11-16] MEDS ORDERED: LEVAQUIN 750 M750 MG PO (13:54)
== END 2017-11-16 17:34 | disposition home health service (06) | DRG 177 ==
LOC: ER 15:05 → 3W 16:33 → EROBS 16:33 → 3W 17:26 → ENTRNSPT 11-16 17:21 → 3W 11-16 17:34
PROVIDERS: Internal Medicine Pulmonary Disease; Nurse Practitioner; Physician Assistant
DX: J69.0 Pneumonitis due to inhalation of food and vomit (principal); J96.01 Acute respiratory failure with hypoxia; E44.1 Mild protein-calorie malnutrition; J44.0 Chronic obstructive pulmonary disease with (acute) lower respiratory infection; L97.329 Non-pressure chronic ulcer of left ankle with unspecified severity; I73.9 Peripheral vascular disease, unspecified; I27.20 Pulmonary hypertension, unspecified; K44.9 Diaphragmatic hernia without obstruction or gangrene; D64.9 Anemia, unspecified; I87.2 Venous insufficiency (chronic) (peripheral); I48.0 Paroxysmal atrial fibrillation; I50.9 Heart failure, unspecified; Z86.711 Personal history of pulmonary embolism; Z86.718 Personal history of other venous thrombosis and embolism; Z85.43 Personal history of malignant neoplasm of ovary; Z98.84 Bariatric surgery status; Z87.891 Personal history of nicotine dependence; Z79.01 Long term (current) use of anticoagulants; Z79.899 Other long term (current) drug therapy; Z88.0 Allergy status to penicillin; Z68.30 Body mass index [BMI] 30.0-30.9, adult
CPT/HCPCS: 10080

== ENCOUNTER 2018-01-02 13:17 | Emergency (ER) | payer OTHER ==
[~2018-01-02] VITALS: Ht 157.5 cm; Wt 78.0 kg
--- NOTE | ~2018-01-02 | EKG ---
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[facility] : 1950 Requested By: Yolanda Khan Order Number: [id number] MD: Av Hall Measurements Intervals [place] Rate: 72 P: CT: QRS: 185 QRSD: 99 T: -8 QT: 419 QTc: 459 Interpretive Statements Atrial fibrillation Poor R wave progression Nonspecific T wave abnormality Compared to ECG 11/14/2017 15:24:51 Nonspecific change in the T wave abnormality Electronically Signed On 01-03-2018 7:49:27 CDT by Av Hall [email or web address] <ELECTRONICALLY SIGNED> By: Av Hall MD, [facility] 01/03/18 0749 39 39 Av Hall MD, [facility] /EPI
[~2018-01-02 13:17] MED LIST changes: +BANOPHEN25 M1 PO; +MUCINEX600 MG PO; +PROTONIX 20 MG20 M1 PO; +XARELTO20 MG PO
[2018-01-02 13:50] LABS: BASOPHILS 0.6 % (0.0-2.0); EOSINOPHILS 0.3 % (0.0-3.0); HEMOGLOBIN 10.8 gm/dL (12.0-15.0); LYMPHOCYTES 4.7 % (24.0-44.0); MCH 28.3 pg (26.0-34.0); MCHC 32.8 g/dL (28.0-37.0); MCV 86.3 fL (80.0-100.0); MONOCYTES 4.7 % (1.0-8.0); PLATELET COUNT 227 thou/uL (150-400); POLYS 89.7 % (36.0-66.0); RBC 3.82 mil/uL (4.20-5.00); RDW 17.8 % (10.5-14.5); WBC 12.2 thou/uL (4.0-11.0)
[2018-01-02 13:57] LABS: ANION GAP 8 mmol/L (7-16); BUN 16 mg/dL (7-18); CALCIUM 8.7 mg/dL (8.5-10.1); CHLORIDE 98 mmol/L (98-107); CO2 30 mmol/L (21-32); CREATININE 0.9 mg/dL (0.6-1.0); GLUCOSE 99 mg/dL (74-106); POTASSIUM 3.9 mmol/L (3.5-5.1); SODIUM 136 mmol/L (136-145)
[2018-01-02 14:06] LABS: ALBUMIN 3.4 g/dL (3.4-5.0); SGOT 29 U/L (15-37); SGPT 55 U/L (30-65); TOTAL BILIRUBIN 0.5 mg/dL (<0.1-1.0); TOTAL PROTEIN 8.3 g/dL (6.4-8.2); TROPONIN-I <0.06 ng/mL (<0.06)
[2018-01-02 14:33] LABS: URINE BILIRUBIN NEGATIVE (Negative); URINE BLOOD NEGATIVE (Negative); URINE CLARITY CLEAR; URINE COLOR YELLOW; URINE GLUCOSE-RANDOM* NEGATIVE (Negative); URINE KETONES NEGATIVE (Negative); URINE LEUKOCYTES NEGATIVE (Negative); URINE NITRITE NEGATIVE (Negative); URINE PROTEIN (DIPSTICK) NEGATIVE (Negative)
[2018-01-02] MEDS ORDERED: AZITHROMYCIN 2250 MG PO (16:31)
== END 2018-01-02 16:45 | disposition home or self-care (01) ==
LOC: ER 13:17
PROVIDERS: Physician Assistant
DX: J18.9 Pneumonia, unspecified organism (principal); I48.91 Unspecified atrial fibrillation; J44.9 Chronic obstructive pulmonary disease, unspecified; E78.5 Hyperlipidemia, unspecified; Z90.49 Acquired absence of other specified parts of digestive tract; F32.9 Major depressive disorder, single episode, unspecified; F41.9 Anxiety disorder, unspecified; I50.9 Heart failure, unspecified; I11.0 Hypertensive heart disease with heart failure

== ENCOUNTER 2018-01-06 16:19 | Inpatient (IN) | payer OTHER ==
[~2018-01-06] VITALS: Ht 157.5 cm; Wt 72.6 kg
--- NOTE | ~2018-01-06 | HC ---
[facility] [address] [place] [address] CONSULTATION Name: MITESH BRUNER Room #: 428-P ADM IN M.R.#: [id number] Admission: 01/06/18 Attend Phys: Felipe Ware MD Discharge: Date of : 51 Report #: [id number] THIS REPORT FOR: //name// CC: Ana Ware DATE OF SERVICE: 01/09/2018 CHIEF COMPLAINT: Ulceration to the left lower extremity. HISTORY OF PRESENT ILLNESS: This is a 67-year-old female patient with whom we are familiar in the Wound Care Service. She was admitted to the hospital for altered mental status. She was apparently found slumped over her couch unresponsive at home. She has subsequently been admitted. She is more alert and oriented now, though she has a fuzzy recollection of the events leading to her admission to the hospital. The patient notes that she has an ulceration to her left lateral lower leg as well as, has what she believes is a spider bite on her right medial calf area. PAST MEDICAL HISTORY: She has a history of atrial fibrillation, chronic diarrhea, iron deficiency anemia, peripheral vascular disease with a previous right iliac stent, mitral valve prolapse, ulceration of the left ankle. History of protein calorie malnutrition, congestive heart failure, hyperlipidemia, COPD, metabolic encephalopathy. SOCIAL HISTORY: The patient has smoked cigarettes 1-2 packs per day for 49 years, apparently quit in 10/2016. Denies alcohol use. FAMILY HISTORY: Positive for heart disease and a history of breast cancer in her daughter. MEDICATIONS: Include Diltiazem, Neurontin, Xarelto, Demadex, Imodium, Protonix, metoclopramide. ALLERGIES: PENICILLIN AND CODEINE. REVIEW OF SYSTEMS: CONSTITUTIONAL: The patient denies fever, chills or weight loss. NEUROLOGICAL: The patient had a decreased level of consciousness, but currently is awake and alert, denies focal weakness, numbness or tingling. EYES: The patient denies visual changes, redness or drainage. ENT: The patient denies earache, nasal drainage or sore throat. CARDIOVASCULAR: The patient denies chest pain, palpitations, diaphoresis. PULMONARY: The patient denies cough, shortness of breath. GASTROINTESTINAL: Elsie patient denies nausea, vomiting, diarrhea and abdominal pain. [address] [address] CONSULTATION Name: MITESH BRUNER Room #: 428-[facility] IN M.R.#: [id number] Admission: 01/06/18 Attend Phys: Felipe Ware MD Discharge: Date of : 51 Report #: [id number] ORTHOPEDIC: The patient notes the ulceration in left leg and area of erythema on the right leg. Other systems in a 14-point review of systems are negative. PHYSICAL EXAMINATION: VITAL SIGNS: At this time include pulse rate 43, respirations of 18, blood pressure 129/61, temperature 97.5. GENERAL: This is a chronically ill-appearing female patient who appears to be in minimal distress. HEENT: Head normocephalic. Nose and throat are clear. NECK: Supple. LUNGS: Clear. HEART: Regular rhythm. ABDOMEN: Soft, nontender. LOWER EXTREMITIES: Demonstrate palpable, but diminished distal pulses. She has an irregularly shaped ulceration on the left lateral lower leg. There is moderate surrounding erythema. It appears to have more drainage than previously seen and seems to be larger than previous. She has a small area of erythema with a small tiny eschar involving the right medial calf, there is an outline drawn The erythema seems to be contained within that outline. NEUROLOGIC: The patient is alert. She is a little bit confused. She has a symmetrical examination. LABORATORY DATA: Includes sodium 139, potassium 3.7, CO2 of 24, BUN 16, creatinine 0.8, glucose 88, albumin is low at 2.9. Lactic acid is 0.8. White blood cell count is 4.4, with a hemoglobin of 8.8. CLINICAL IMPRESSION: 1. Chronic venous ulceration of the left lower extremity with possible wound infection and mild cellulitis. 2. Area of erythema to the right medial calf. The patient suspects a spider bite, although none was witnessed. 3. Moderate protein calorie malnutrition. 4. Atrial fibrillation. 5. Diastolic heart failure. 6. Coronary artery disease. 7. Peripheral arterial disease. RECOMMENDATIONS: At this point in time, a culture and sensitivity has been obtained from the left leg. We will continue with Silvadene, morphine compound. Xeroform gauze to be changed on a daily basis. Consider antibiotic therapy pending culture results. We will recheck arterial Doppler as she has a history [address] [address] CONSULTATION Name: MITESH BRUNER Room #: 428-P [facility] IN ..#: [id number] Admission: 01/06/18 Attend Phys: Felipe Ware MD Discharge: Date of : 51 Report #: [id number] of peripheral arterial disease. Recommend aggressive nutritional support to maximize wound healing. I appreciate being asked to see her in consultation. <ELECTRONICALLY SIGNED> By: Perez Marcelo MD 01/10/18 1208 0934 1151 Perez Marcelo MD /nt
--- NOTE | ~2018-01-06 | EKG ---
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
--- NOTE | ~2018-01-06 | EKG ---
[address] [address] ELECTROCARDIOGRAM REPORT Name: ORLANDO BRUNERLMA EMILY Room #: 428- ADM IN M.R.#: [id number] Admission: 01/06/18 Attend Phys: Ang Reed MD Discharge: Date of : 51 Report #: [id number] THIS REPORT FOR: //name// 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 : 1950 Requested By: Demetrius Eaton Order Number: [id number] MD: Av Hall Measurements Intervals [place] Rate: 80 P: MN: QRS: 201 QRSD: 104 T: 22 QT: 485 QTc: 560 Interpretive Statements Atrial fibrillation Probable right ventricular hypertrophy Nonspecific T abnormalities Prolonged QT interval Compared to ECG 01/02/2018 13:40:42 No significant change was found Electronically Signed On 01-07-2018 13:50:24 CDT by Av Hall [email or web address] <ELECTRONICALLY SIGNED> By: Av Hall MD, [facility] 01/07/18 1350 1724 1724 Av Hall MD, [facility] /EPI
--- NOTE | ~2018-01-06 | 2DMMODE ---
[facility] [address] [place] [address] 2 D/M-MODE ECHOCARDIOGRAM Name: MITESH BRUNER Room #: 428-P ADM IN M.R.#: [id number] Admission: 01/06/18 Attend Phys: Felipe Ware MD Discharge: Date of : 52 Date of Service: 01/08/18 1000 Report #: [id number] THIS REPORT FOR: //name// APPROVED REPORT Study performed: 01/08/2018 08:46:33 EXAM: Comprehensive 2D, Doppler, and color-flow Echocardiogram Patient Location: Bedside Room #: 428 Status: routine BSA: 1.74 HR: 65 bpm BP: 120/70 mmHg Other Information Study Quality: Good Indications Congestive Heart Failure COPD Syncope 2D Dimensions RVDd: 43.75 mm LVEF(%): 59.54 (>50%) IVSd: 10.68 (7-11mm) LVOT Diam: 20.70 (18-24mm) LVDd: 50.34 mm PWd: 10.70 (7-11mm) Ascending Ao: 24.73 (22-36mm) LVDs: 34.34 (25-40mm) Aortic Root: 28.57 mm IVC: 32.00 mm Marvin's LVEF: 59.54 % Volumes Left Atrial Volume (Systole) Single Plane 4CH: 96.88 mL Single Plane 2CH: 93.62 mL LA ESV Index: 58.00 mL/m2 Aortic Valve AoV Peak Vinh.: 1.47 m/s AO Peak Gr.: 8.67 mmHg LVOT Max P.86 mmHg LVOT Max V: 1.10 m/s STAN Vmax: 2.52 cm2 Mitral Valve E/A Ratio: 6.1 [facility] [employer] [place] [address] 2 D/M-MODE ECHOCARDIOGRAM Name: MITESH BRUNER Room #: 428-[facility] IN M.R.#: [id number] Admission: 01/06/18 Attend Phys: Felipe Ware MD Discharge: Date of : 51 Date of Service: 01/08/18 1000 Report #: [id number] MV Decel. Time: 155.30 ms MV E Max Vinh.: 1.65 m/s MV A Vinh.: 0.27 m/s MV PHT: 45.09 ms IVRT: 72.66 ms Pulmonary Valve PV Peak Vinh.: 1.16 m/s PV Peak Gr.: 5.41 mmHg Pulmonary Vein P Vein S: 0.34 m/s P Vein A: 0.15 m/s P Vein D: 0.93 m/s P Vein A Dur.: 72.7 msec P Vein S/D Ratio: 0.37 Tricuspid Valve TR Peak Vinh.: 4.21 m/s RAP Estimate: 15.00 mmHg TR Peak Gr.: 70.96 mmHg PA Pressure: 86.00 mmHg Left Ventricle The left ventricle is normal size. There is normal LV segmental wall motion. There is normal left ventricular wall thickness. The left ventricular systolic function is normal. The left ventricular ejection fraction is within the normal range. LVEF is 60-65%. Severe diastolic dysfunction is present (restrictive filling). Right Ventricle Right ventricle is dilated. The right ventricular systolic function is normal. Atria Left atrium is severely dilated. Right atrium is severely dilated. Aortic Valve The aortic valve is mildly sclerotic No aortic regurgitation is present. There is no aortic valvular stenosis. Mitral Valve Mild mitral annular calcification. Mild mitral regurgitation. No evidence of mitral valve stenosis. Tricuspid Valve The tricuspid valve is normal in structure. Mild to moderate tricuspid regurgitation. PAP is estimated at [address] [place] [address] 2 D/M-MODE ECHOCARDIOGRAM Name: MITESH BRUNER Room #: 428-P [facility] IN ..#: [id number] Admission: 01/06/18 Attend Phys: Felipe Ware MD Discharge: Date of : 52 Date of Service: 01/08/18 1000 Report #: [id number] Pulmonic Valve The pulmonary valve is normal in structure. Trace to mild pulmonic regurgitation. Great Vessels The aortic root is normal in size. IVC is dilated and collapses <50% with inspiration. Pericardium There is no pericardial effusion. <Conclusion> The left ventricular systolic function is normal. There is normal LV segmental wall motion. LVEF is 60-65%. Right ventricle is dilated. Both atria are severely dilated. The aortic valve is mildly sclerotic. No aortic regurgitation or stenosis Mild mitral annular calcification. Mild mitral regurgitation. Mild to moderate tricuspid regurgitation. Pulmonary artery pressure estimated at 80 mmHg. There is no pericardial effusion. <ELECTRONICALLY SIGNED> By: Av Hall MD, FACC 01/08/18 1000 1000 1000 Av Hall MD, FACC /INF
--- NOTE | ~2018-01-06 | HC ---
[facility] [address] [place] [address] CONSULTATION Name: MITESH BRUNER Room #: 428-P ADM IN M.R.#: [id number] Admission: 01/06/18 Attend Phys: Felipe Ware MD Discharge: Date of : 51 Report #: [id number] THIS REPORT FOR: //name// CC: Ang Badillo TYPE OF REPORT: Infectious diseases consultation. REASON FOR CONSULTATION: I was asked to evaluate concerning aspiration pneumonia. HISTORY OF PRESENT ILLNESS: The patient is a 67-year old who has been hospitalized multiple times over the last year with diagnosis of aspiration pneumonia. I last saw her in August where she was placed on Reglan and finished a course of antibiotic therapy. A feeding tube was discussed, but the patient refused such. Since then, she was hospitalized multiple times with similar symptoms. Comes in today after her brother found her slumped over her couch unresponsive. They woke her and she developed rigors. She was confused, brought into the Emergency Room for further evaluation and found to have right lower lobe and middle lobe infiltrate. Apparently, she had a similar episode on the of this month, again slumped over her couch unresponsive. During that evaluation, no new diagnoses were established other than moderate increased density, right perihilar and medial basilar lung consistent with pneumonitis. She was a reasonable candidate for outpatient treatment. She is placed on azithromycin and discharged. She would have completed her course of antibiotics today. Following admission, she has had temperature up to 99.9 degrees. She remains hemodynamically stable. She is alert and able to give history predating these events. Subsequently, has no recollection of the events of this morning. ALLERGIES: CODEINE and PENICILLIN. MEDICATIONS: As noted on her MAR, which were reviewed. Placed on vancomycin, Levaquin and aztreonam. PAST MEDICAL HISTORY: Ovarian carcinoma, gastric bypass, hiatal hernia, atrial fibrillation, chronic anemia, peripheral vascular disease, pulmonary hypertension, cardiomyopathy, congestive heart failure, gastrointestinal hemorrhage, right lung pulmonary embolus, left lower extremity DVT, chronic left ankle ulcer, anxiety, depression, obstructive sleep apnea, cholecystectomy, hysterectomy and COPD. FAMILY HISTORY: Coronary artery disease and breast cancer. SOCIAL HISTORY: She is a past smoker and no significant alcohol intake. REVIEW OF SYSTEMS: CONSTITUTIONAL: Has had a 5-pound weight loss over the last several weeks. [facility] [address] [place] [address] CONSULTATION Name: MITESH BRUNER Room #: 428-P [facility] IN ..#: [id number] Admission: 01/06/18 Attend Phys: Felipe Ware MD Discharge: Date of : 51 Report #: [id number] Otherwise, has felt reasonably well except for her acute episodes as noted above. SKIN: As above with chronic ulcer to the left lateral ankle. LYMPHATIC: Negative. HEMATOLOGIC: As above with history of DVT, PE. HEENT: Upper dentures. PULMONARY: As above with no increased cough and minimal sputum production. No pleuritic chest pain. No shortness of breath. CARDIAC: No palpitations, PND or orthopnea. GASTROINTESTINAL: No reflux symptoms, does not recall choking on any food. Remains on Reglan. Has chronic loose stools. GENITOURINARY: Negative. JOINTS: Negative. NEUROLOGICAL: No previous history of seizures. These events have not been witnessed at the outset. PHYSICAL EXAMINATION: VITAL SIGNS: Afebrile and hemodynamically stable. Oxygen at 2 liters per nasal cannula with 100% at saturation. GENERAL: Alert and cooperative. No acute distress. She was moderately obese, mostly in her lower torso and legs. She was able to sit up in bed without assistance. HEENT: Remarkable for upper dentures, lower teeth fair repair. NECK: Supple. No thyromegaly or mass. LUNGS: Crackles in the right base posteriorly without consolidation or rub. HEART: Regular, without appreciable murmur, gallop or rub. ABDOMEN: Soft and nontender. No hepatosplenomegaly or mass. GENITOURINARY: External genitalia unremarkable. EXTREMITIES: With an ulcer to the lateral aspect of her left ankle. No surrounding cellulitis and no purulent drainage. Pulses in lower extremities were normal. She had an erythematous ecchymotic lesion to the medial aspect of her lower leg on the right. This had an apparent puncture wound in the center. Moderate tenderness. Also had some tenderness in her upper medial thigh and groin on that side without gross evidence of lymphangitis. NEUROLOGICAL: Nonfocal. LABORATORY STUDIES: Blood cultures are pending. Sputum culture pending. Procalcitonin 0.26. BNP 2224. Blood glucose 162. Hemoglobin 10; white count 15 and platelet count 241,000. Differential: 92% neutrophils. Drug screen negative. Alcohol screen negative. Urinalysis negative. Creatinine 0.9, sodium 134, potassium 3.4 and bicarbonate 29. RADIOLOGICAL DATA: CT of the head, no acute change. Chest x-ray, right perihilar and basilar consolidation consistent with pneumonia. This was reviewed. Agree with interpretation. [address] [place] [address] CONSULTATION Name: MITESH BRUNER Room #: 428-P ADM IN M.R.#: [id number] Admission: 01/06/18 Attend Phys: Felipe Ware MD Discharge: Date of : 52 Report #: [id number] IMPRESSION: A 67-year old with recurring pneumonia. Aspiration would seem most likely given this scenario. No other evidence of immunodeficiency. She is having recurrent episodes of syncope. I would entertain either cardiogenic, neurogenic or pulmonary issues such as pulmonary embolism, although she has not had significant oxygen gradient nor chest pain that I would suspect would go along with this. Also, she is on anticoagulation. Then, I suspect we are more likely dealing with a cardiac issue or central nervous system issue, possible seizure. She does not, however, develop a typical postictal state. She has a previous gastric bypass. She does have gastroesophageal reflux and has been seen by Gastrointestinal Service. She had upper endoscopy in March, which showed upper gastrointestinal bleeding source. In addition, the patient has underlying atrial fibrillation, chronic obstructive pulmonary disease, pulmonary hypertension and peripheral vascular disease with a chronic left leg ulcer. Also found was a tender, erythematous lesion to her right calf, which appears most consistent with an insect bite but will need to be followed. She has an allergy to penicillin. RECOMMENDATIONS: Continue antibiotic coverage with vancomycin and cefepime. Obtain sputum culture. Further cardiac and neurologic workup for these syncopal episodes. Continue with aspiration precautions. May wish Speech Therapy to reevaluate. Continue to monitor right calf wound and continue dressing changes to the left ankle wound. Case was discussed with nursing staff and attending. We will make adjustments to her antibiotics pending culture results. <ELECTRONICALLY SIGNED> By: Rajeev Santiago MD 01/08/18 1808 1412 2135 Rajeev Santiago MD /nt
[~2018-01-06 16:19] MED LIST changes: +AZITHROMYCIN 2250 MG PO
[2018-01-06 16:20] VITALS: BP 127/50
[2018-01-06 17:40] LABS: BE(vivo) 5.5 mmol/L (-2 to +3); HCO3 29.5 mmol/L (22.0-26.0); PCO2 40.8 mmHg (35.0-45.0); PO2 51.6 mmHg (80.0-100.0); pH 7.477 (7.360-7.450); sO2 88.8 % (92.0-98.0)
[2018-01-06 17:49] LABS: ABSOLUTE NEUTROPHILS 14.3 thou/uL (1.4-8.2); BASOPHILS 0.3 % (0.0-2.0); EOSINOPHILS 0.2 % (0.0-3.0); HEMATOCRIT 30.4 % (37.0-47.0); HEMOGLOBIN 10.1 gm/dL (12.0-15.0); LYMPHOCYTES 3.5 % (24.0-44.0); MCH 28.7 pg (26.0-34.0); MCHC 33.2 g/dL (28.0-37.0); MCV 86.5 fL (80.0-100.0); MONOCYTES 3.4 % (1.0-8.0); PLATELET COUNT 241 thou/uL (150-400); POLYS 92.6 % (36.0-66.0); RBC 3.51 mil/uL (4.20-5.00); RDW 18.2 % (10.5-14.5); WBC 15.4 thou/uL (4.0-11.0)
[2018-01-06 17:52] LABS: ANION GAP 8 mmol/L (7-16); BUN 21 mg/dL (7-18); CALCIUM 8.8 mg/dL (8.5-10.1); CHLORIDE 100 mmol/L (98-107); CO2 29 mmol/L (21-32); CREATININE 0.9 mg/dL (0.6-1.0); GLUCOSE 104 mg/dL (74-106); POTASSIUM 3.4 mmol/L (3.5-5.1); SODIUM 137 mmol/L (136-145)
[2018-01-06 18:01] LABS: TROPONIN-I <0.06 ng/mL (<0.06)
[2018-01-06 18:31] LABS: URINE BILIRUBIN NEGATIVE (Negative); URINE BLOOD TRACE (Negative); URINE CLARITY CLEAR; URINE COLOR YELLOW; URINE GLUCOSE-RANDOM* NEGATIVE (Negative); URINE KETONES NEGATIVE (Negative); URINE NITRITE-REFLEX NEGATIVE (Negative); URINE PROTEIN (DIPSTICK) NEGATIVE (Negative)
[2018-01-06 18:32] LABS: URINE LEUKOCYTES-REFLEX TRACE (Negative)
[2018-01-06 18:39] LABS: AMP/METHAMP Negative (Negative); BARBITURATES Negative (Negative); BENZODIAZEPINES Negative (Negative); COCAINE Negative (Negative); METHADONE Negative (Negative); OPIATES Negative (Negative); PCP Negative (Negative)
[2018-01-06 19:00] LABS: ANISOCYTOSIS 1+
[2018-01-06 19:34] VITALS: BP 114/50
[2018-01-06] MEDS ORDERED: REGLAN 10 MG TA10 MG PO ×2 (19:34→21:42)
[2018-01-06 20:13] VITALS: BP 119/55
[2018-01-06 21:30] VITALS: BP 102/37
[2018-01-07 04:30] VITALS: BP 103/32
[2018-01-07 09:20] VITALS: BP 100/49
[2018-01-07 16:45] VITALS: BP 108/39
[2018-01-07 21:30] VITALS: BP 128/64
[2018-01-08 02:05] LABS: GLYCOHEMOGLOBIN (HGB A1C) 4.8 % (4.8-5.6)
[2018-01-08 03:39] VITALS: BP 106/42
[2018-01-08 07:35] VITALS: BP 120/70
[2018-01-08 08:27] LABS: ABSOLUTE NEUTROPHILS 4.3 thou/uL (1.4-8.2); BASOPHILS 0.4 % (0.0-2.0); EOSINOPHILS 2.7 % (0.0-3.0); HEMATOCRIT 25.8 % (37.0-47.0); HEMOGLOBIN 8.5 gm/dL (12.0-15.0); LYMPHOCYTES 15.3 % (24.0-44.0); MCH 28.7 pg (26.0-34.0); MCHC 32.9 g/dL (28.0-37.0); MCV 87.2 fL (80.0-100.0); MONOCYTES 7.3 % (1.0-8.0); PLATELET COUNT 205 thou/uL (150-400); POLYS 74.3 % (36.0-66.0); RBC 2.95 mil/uL (4.20-5.00); RDW 18.2 % (10.5-14.5); WBC 5.7 thou/uL (4.0-11.0)
[2018-01-08 08:34] LABS: CALCIUM 8.5 mg/dL (8.5-10.1); CREATININE 0.8 mg/dL (0.6-1.0); POTASSIUM 3.7 mmol/L (3.5-5.1)
[2018-01-08 09:11] LABS: FOLIC ACID 8.3 ng/mL (8.6-58.9); TSH 2.795 uIU/mL (0.358-3.740)
[2018-01-08 09:41] LABS: ANISOCYTOSIS 1+; PLATELET ESTIMATE NORMAL
[2018-01-08 12:11] LABS: MAGNESIUM 2.2 mg/dL (1.8-2.4); TROPONIN-I <0.06 ng/mL (<0.06)
[2018-01-08 16:05] VITALS: BP 107/60
[2018-01-08 20:00] VITALS: BP 138/52
[2018-01-09 04:17] VITALS: BP 129/61
[2018-01-09 06:06] LABS: BASOPHILS 1.3 % (0.0-2.0); EOSINOPHILS 3.9 % (0.0-3.0); HEMATOCRIT 26.3 % (37.0-47.0); HEMOGLOBIN 8.8 gm/dL (12.0-15.0); LYMPHOCYTES 17.9 % (24.0-44.0); MCH 29.5 pg (26.0-34.0); MCHC 33.5 g/dL (28.0-37.0); MCV 88.1 fL (80.0-100.0); MONOCYTES 9.1 % (1.0-8.0); PLATELET COUNT 214 thou/uL (150-400); POLYS 67.8 % (36.0-66.0); RBC 2.99 mil/uL (4.20-5.00); WBC 4.4 thou/uL (4.0-11.0)
[2018-01-09 07:09] LABS: ALBUMIN 2.9 g/dL (3.4-5.0); CALCIUM 8.7 mg/dL (8.5-10.1); CREATININE 0.8 mg/dL (0.6-1.0); MAGNESIUM 2.3 mg/dL (1.8-2.4); POTASSIUM 3.7 mmol/L (3.5-5.1); TOTAL BILIRUBIN 0.5 mg/dL (<0.1-1.0); TOTAL PROTEIN 7.1 g/dL (6.4-8.2)
[2018-01-09 12:17] VITALS: BP 120/50
[2018-01-09 15:17] VITALS: BP 96/76
[2018-01-09 20:00] VITALS: BP 118/64; BP 128/46
[2018-01-10 04:38] VITALS: BP 111/43
[2018-01-10 08:01] LABS: ABSOLUTE NEUTROPHILS 2.3 thou/uL (1.4-8.2); BASOPHILS 0.7 % (0.0-2.0); EOSINOPHILS 3.7 % (0.0-3.0); HEMATOCRIT 27.3 % (37.0-47.0); HEMOGLOBIN 9.1 gm/dL (12.0-15.0); LYMPHOCYTES 24.3 % (24.0-44.0); MCH 29.2 pg (26.0-34.0); MCHC 33.4 g/dL (28.0-37.0); MCV 87.3 fL (80.0-100.0); MONOCYTES 7.1 % (1.0-8.0); PLATELET COUNT 228 thou/uL (150-400); POLYS 64.2 % (36.0-66.0); RBC 3.12 mil/uL (4.20-5.00); RDW 17.7 % (10.5-14.5); WBC 3.6 thou/uL (4.0-11.0)
[2018-01-10 08:12] LABS: CALCIUM 9.2 mg/dL (8.5-10.1); CREATININE 0.9 mg/dL (0.6-1.0); POTASSIUM 3.7 mmol/L (3.5-5.1)
[2018-01-10 08:16] LABS: % SATURATION 20 % (20-39); IRON 62 ug/dL (50-170); TIBC 314 ug/dL (250-450)
[2018-01-10 12:39] VITALS: BP 111/43
[2018-01-10] MEDS ORDERED: MELATONIN5 M1 PO (14:41)
[2018-01-10] MEDS ORDERED: CEFDINIR300 MG PO (14:41)
[2018-01-10] MEDS ORDERED: VITAMIN B12-FO1 EAC1 PO (14:41)
[2018-01-10 15:18] VITALS: BP 111/43
[2018-01-10 15:22] VITALS: BP 111/43
[2018-01-10 15:28] VITALS: BP 111/43
[2018-01-11 04:10] LABS: 25-HYDROXY TOTAL 6.1 ng/mL (30.0-100.0)
== END 2018-01-10 16:30 | disposition home health service (06) | DRG 177 ==
LOC: ER 16:19 → EROBS 19:02 → 4E 19:02 → ENTRNSPT 01-10 16:32
PROVIDERS: Emergency Medicine; Hospitalist; Nurse Practitioner Acute Care; Psychiatry & Neurology Neurology
DX: J69.0 Pneumonitis due to inhalation of food and vomit (principal); J96.21 Acute and chronic respiratory failure with hypoxia; L03.116 Cellulitis of left lower limb; I50.30 Unspecified diastolic (congestive) heart failure; E44.0 Moderate protein-calorie malnutrition; L03.115 Cellulitis of right lower limb; N39.0 Urinary tract infection, site not specified; I48.91 Unspecified atrial fibrillation; I11.0 Hypertensive heart disease with heart failure; I27.20 Pulmonary hypertension, unspecified; F32.9 Major depressive disorder, single episode, unspecified; G47.33 Obstructive sleep apnea (adult) (pediatric); F41.9 Anxiety disorder, unspecified; I08.3 Combined rheumatic disorders of mitral, aortic and tricuspid valves; F43.21 Adjustment disorder with depressed mood; I25.10 Atherosclerotic heart disease of native coronary artery without angina pectoris; E87.6 Hypokalemia; D64.9 Anemia, unspecified; E53.8 Deficiency of other specified B group vitamins; E78.5 Hyperlipidemia, unspecified; J44.9 Chronic obstructive pulmonary disease, unspecified; I73.9 Peripheral vascular disease, unspecified; B95.5 Unspecified streptococcus as the cause of diseases classified elsewhere; Z95.820 Peripheral vascular angioplasty status with implants and grafts; Z85.43 Personal history of malignant neoplasm of ovary; Z92.21 Personal history of antineoplastic chemotherapy; Z92.3 Personal history of irradiation; Z87.891 Personal history of nicotine dependence; Z86.718 Personal history of other venous thrombosis and embolism; Z86.711 Personal history of pulmonary embolism; Z90.49 Acquired absence of other specified parts of digestive tract; Z98.84 Bariatric surgery status; Z90.710 Acquired absence of both cervix and uterus; Z79.01 Long term (current) use of anticoagulants; Z79.899 Other long term (current) drug therapy; Z88.0 Allergy status to penicillin; Z88.5 Allergy status to narcotic agent; Z82.49 Family history of ischemic heart disease and other diseases of the circulatory system; Z80.3 Family history of malignant neoplasm of breast
CPT/HCPCS: 10183

== ENCOUNTER → 2018-03-12 | Outpatient (CLI) | payer OTHER ==
[~2018-03-12] MED LIST changes: +MELATONIN5 M1 PO; +REGLAN 10 MG TA10 MG PO; +VITAMIN B12-FO1 EAC1 PO
== END ==
LOC: HYPER 07:15
DX: I87.332 Chronic venous hypertension (idiopathic) with ulcer and inflammation of left lower extremity (principal); L97.322 Non-pressure chronic ulcer of left ankle with fat layer exposed; R60.0 Localized edema; I11.0 Hypertensive heart disease with heart failure; I50.9 Heart failure, unspecified; I48.91 Unspecified atrial fibrillation; J44.9 Chronic obstructive pulmonary disease, unspecified; I25.10 Atherosclerotic heart disease of native coronary artery without angina pectoris; E66.9 Obesity, unspecified; H91.90 Unspecified hearing loss, unspecified ear; Z86.718 Personal history of other venous thrombosis and embolism; Z86.711 Personal history of pulmonary embolism; Z87.891 Personal history of nicotine dependence; Z85.42 Personal history of malignant neoplasm of other parts of uterus; Z68.31 Body mass index [BMI] 31.0-31.9, adult

== ENCOUNTER 2018-04-02 09:12 | Inpatient (IN) | payer OTHER ==
[~2018-04-02] VITALS: Ht 157.5 cm; Wt 80.6 kg
--- NOTE | ~2018-04-02 | EKG ---
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 : 1950 Requested By: Stephania Hernandez Order Number: [id number] MD: Varun Naranjo Measurements Intervals [place] Rate: 81 P: NM: QRS: 244 QRSD: 95 T: -66 QT: 331 QTc: 385 Interpretive Statements Atrial fibrillation Left anterior fascicular block Probable RVH w/ secondary repol abnormality Compared to ECG 01/08/2018 11:26:29 Left anterior fascicular block now present T-wave abnormality no longer present Electronically Signed On 04-02-2018 13:25:32 CDT by Varun Naranjo [email or web address] <ELECTRONICALLY SIGNED> By: Varun Naranjo MD 04/02/18 1325 8 8 Varun Naranjo MD /EPI
--- NOTE | ~2018-04-02 | PATH ---
[facility] [address] [place] [address] PATHOLOGY RPT PROCEDURE Name: MITESH BRUNER Room #: 359-P ADM IN M.R.#: [id number] Admission: 04/02/18 Date of : 52 Discharge: Report #: [id number] Path Case #: [id number] Note [facility] Accession Number: [id number] TESTS RESULT FLAG UNITS REF RANGE LAB Clinician Provided Cytology Information No. of containers..01 Other (Miscellaneous) Source: RLL BRUSH TIP DIAGNOSIS: RLL BRUSH TIP NEGATIVE FOR MALIGNANT CELLS. REACTIVE BRONCHIAL CELLS ARE PRESENT. PULMONARY MACROPHAGES (DUST CELLS) ARE PRESENT. RED BLOOD CELLS ARE PRESENT. Signed out by: 02 Nabil Meneses MD, Pathologist NPI- [id number] Performed by: Elida Haile, Blow Moulding Machine Operator ([facility]) Gross description: 01 14ML, COLORLESS, CLEAR /LCS FLAG LEGEND: L-Low Normal,H-High Normal,LL-Alert Low,HH-Alert High <-Panic Low,>-Panic High,A-Abnormal,AA-Critical Abnormal Performed at: [address] [place] [address] Shan Monteiro MD, [address] [place] [phone] Stacey Costa MD, Specimen Comment: A courtesy copy of this report has been sent to Specimen Comment: [phone]. Specimen Comment: Report sent to Performed at: [address], [place], [place] [id number] MD Shan Monteiro MD Phone: [phone]
--- NOTE | ~2018-04-02 | PATH ---
[facility] [address] [place] [address] PATHOLOGY RPT PROCEDURE Name: MITESH BRUNER Room #: 359-P ADM IN M.R.#: [id number] Admission: 04/02/18 Date of : 52 Discharge: Report #: [id number] Path Case #: [id number] Note [facility] Accession Number: [id number] TESTS RESULT FLAG UNITS REF RANGE LAB Clinician Provided Cytology Information No. of containers..01 Other (Miscellaneous) Source: RLL BRUSHING DIAGNOSIS: 02 RLL BRUSHING NEGATIVE FOR MALIGNANT CELLS. REACTIVE BRONCHIAL CELLS ARE PRESENT. PULMONARY MACROPHAGES (DUST CELLS) ARE PRESENT. RED BLOOD CELLS ARE PRESENT. Signed out by: 02 Nabil Meneses MD, Pathologist NPI- [id number] Performed by: 01 Elida Haile, Animal Cruelty Investigation Supervisor ([facility]) FLAG LEGEND: L-Low Normal,H-High Normal,LL-Alert Low,HH-Alert High <-Panic Low,>-Panic High,A-Abnormal,AA-Critical Abnormal Performed at: [address] [place] [address] Shan Monteiro MD, [address] [address] Stacey Costa MD, Specimen Comment: A courtesy copy of this report has been sent to Specimen Comment: [phone]. Specimen Comment: Report sent to Performed at: [address], [place], [place] [id number] MD Shan Monteiro MD Phone: [phone]
--- NOTE | ~2018-04-02 | HC ---
[facility] [address] [place] [address] CONSULTATION Name: MITESH BRUNER EMILY Room #: 359-P [facility] IN M.R.#: [id number] Admission: 04/02/18 Attend Phys: Felipe Ware MD Discharge: 04/09/18 Date of : 52 Report #: [id number] THIS REPORT FOR: //name// CC: Ana Ware DATE OF SERVICE: 04/04/2018 HISTORY OF PRESENT ILLNESS: The patient is a 67-year-old white female admitted with recurrent pneumonia, noted to have pneumonitis with pleural effusion. She was diagnosed with mental status changes with encephalopathies thought secondary to hypoxemia. She has acute on chronic respiratory failure. There is question of aspiration. She also was noted to have acute on chronic diastolic dysfunction. She has severe pulmonary hypertension. She has chronic atrial fibrillation with chronic anticoagulation. Multiple consultants are following. She has persistent right lung infiltrate, worsening. Infectious Disease suspects that its aspiration induced. Her video swallow was normal, but she does have a large hiatal hernia and there is a question whether she is refluxing. Continuing with IV antibiotics. Note that bronchoscopy is pending. We are seeing her in rehabilitation medicine consultation. PAST MEDICAL HISTORY: Includes pulmonary hypertension, mitral valve prolapse, iron deficiency anemia, history of severe sepsis, history of community-acquired pneumonia, protein-calorie malnutrition, CHF, left ankle nonhealing ulcer, which she is followed chronically with wound care, history of depression and anxiety. There is a note of some dementia. Past history of ETOH abuse, tobacco abuse. She has had a prior gastric bypass. MEDICATIONS: Please see the full medication listing. This includes vitamins, herbals, and supplements. HABITS: As noted above. Past tobacco history. There is a note of ETOH abuse in the past. SOCIAL HISTORY: Notes that she lives with her brother 1 step into the house. Did not utilize any gait aids. She is on nasal prong O2, 2.5 liters p.r.n. Her brother works, but apparently he has been recently diagnosed with cancer. REVIEW OF SYSTEMS: No current complaints of chest pain, shortness of breath, abdominal discomfort. No extremity pain complaints. PHYSICAL EXAMINATION: GENERAL: A 67-year-old white female rather thin, no obvious distress, 2 liters nasal cannula. HEENT: Appeared to be benign. NEUROLOGIC: Cranial nerves are grossly intact. Functional range of motion of [facility] [address] [place] [address] CONSULTATION Name: MITESH BRUNER EMILY Room #: 359-P DIS IN [facility].#: [id number] Admission: 04/02/18 Attend Phys: Felipe Ware MD Discharge: 04/09/18 Date of : 52 Report #: [id number] both upper extremities with strength grade 4-/5. DTRs are trace to 1. Lower extremities, no focal calf swelling, functional range of motion, strength grade 4-/5. Tone appeared to be intact. She does have the wound of that left leg, which is chronic. Wound care is involved. She does have some decreased memory, can follow basic 1 step commands. Some latency to her responses. ASSESSMENT: A 67-year-old white female with the following problem list: 1. Mental status changes with encephalopathy thought to be hypoxemic. 2. Recurrent pneumonia with pneumonitis and pleural effusion. 3. Acute respiratory hypoxemia. 4. Chronic obstructive pulmonary disease with premorbid home nighttime oxygen use. 5. Pulmonary hypertension. 6. Congestive heart failure, question diastolic. 7. History of ETOH/dementia. 8. History of tobacco abuse. 9. Persistent right lung infiltrate, worsening suspected aspiration. PLAN: The patient is to have a bronchoscopy today. I have put in orders for PT, OT as well as speech therapy. We will see how she does and be glad to follow along with you regarding rehab therapy needs. <ELECTRONICALLY SIGNED> By: Dwayne Meadows MD 04/11/18 1319 1102 1247 Dwayne Meadows MD /[facility]
--- NOTE | ~2018-04-02 | HC ---
[facility] [place] [address] [place] [address] CONSULTATION Name: MITESH BRUNER Room #: 359-P ADM IN M.R.#: [id number] Admission: 04/02/18 Attend Phys: Felipe Ware MD Discharge: Date of : 52 Report #: [id number] THIS REPORT FOR: //name// CC: Ana Ware DATE OF SERVICE: 04/04/2018 HISTORY OF PRESENT ILLNESS: The patient is a 67-year-old female well known to myself. Was readmitted yesterday with progressive altered mental status. She had been living with her brother, but has been having some progressive dementia and this was noted in my note in the office last month. She has permanent underlying AFib. There is significant shaking and jerking and incoherence when she was brought in by her brother. She is more alert today, but still admits to definitely having some progressive dementia. She has been anticoagulated. Some findings of a pulmonary infiltrate or possible mass. Hypoxia was initially noted 86% on room air, but improved with oxygen supplementation. She denies chest pain or anginal complaints. She underwent right and left heart catheterization last May. Moderate 3-vessel coronary artery disease, no intervention. Pulmonary pressures were 66/17, wedge was 20. So felt to be possible multifactorial with some volume overload and underlying chronic pulmonary disease, COPD. MEDICATIONS: Have been diltiazem 120, gabapentin, Protonix, potassium, Xarelto 20, torsemide 20. PAST MEDICAL HISTORY: Positive for coronary artery disease, pulmonary hypertension, moderate valvular insufficiency, mitral valve prolapse, DVT, history of metabolic encephalopathy in the past, worsening dementia, obstructive sleep apnea, prior pneumonias, uterine cancer, cholecystectomy, gastric bypass, hysterectomy and tonsillectomy. FAMILY HISTORY: Mother and father both had coronary disease. SOCIAL HISTORY: Currently living with her brother. She has a 2-pack a day, 11-[id number]-[id number] history. She quit 2 years ago. No significant alcohol. Moderate caffeine intake. ALLERGIES: CODEINE AND PENICILLIN. REVIEW OF SYSTEMS: Negative except for stated above with intermittent bowel issues, she states. EKG is atrial fibrillation with controlled ventricular response, nonspecific changes. PHYSICAL EXAMINATION: GENERAL: She is alert. [facility] [address] [place] [address] CONSULTATION Name: MITESH BRUNER Room #: 359-P [facility] IN ..#: [id number] Admission: 04/02/18 Attend Phys: Felipe Ware MD Discharge: Date of : 52 Report #: [id number] VITAL SIGNS: Blood pressure is 118/50, pulse 60s and irregular. HEENT: Eyes reveal xanthelasmas. Pharynx is clear. NECK: Shows preserved upstrokes without JVD or bruits. LUNGS: Prolonged expiratory phase, diminished in the right base. CARDIAC: Irregularly irregular, distant. Holosystolic murmur is noted left lower sternal border. ABDOMEN: Obese. EXTREMITIES: Reveal some venous stasis changes, some mild edema. I cannot palpate distal pulses. NEUROLOGIC: Intact. MUSCULOSKELETAL: Generalized arthritic changes. Some valgus deformity of the knee. SKIN: Warm and dry without xanthoma or ulcer. LABORATORY DATA: Does show some significant anemia. Hemoglobin 8.2, hematocrit 25.3. Sodium 142, potassium 3.6, creatinine 0.6. ASSESSMENT: 1. Acute on chronic hypoxemia with pulmonary infiltrate, possible aspiration (bronchoscopy today). 2. Moderately severe pulmonary hypertension, multifactorial. 3. Mild 3-vessel coronary disease. 4. Permanent atrial fibrillation, on chronic anticoagulation. 5. Progressive dementia with some underlying metabolic encephalopathy on admission, which seems to have resolved. 6. History of syncope. RECOMMENDATIONS AND PLAN: Cardiovascular status appears to be relatively stable. I discussed with Pulmonary the pulmonary hypertension issue. Probably no strong indication to repeat right heart catheterization as this was done 9 months ago. We will continue with aggressive diuresis and bronchoscopy today. Anticoagulation has been held for 48 hours. Obviously, may be some consideration of placement as I am unclear that she is able to go back home with her family, although I would defer that to primary. Cardiovascular status is relatively stable. We will follow with you. <ELECTRONICALLY SIGNED> By: Bob William MD, FACC 04/05/18 1255 0923 0334 Bob William MD, FACC /nt
--- NOTE | ~2018-04-02 | PATH ---
[facility] [address] [place] [address] PATHOLOGY RPT PROCEDURE Name: MITESH BRUNER Room #: 359-P ADM IN M.R.#: [id number] Admission: 04/02/18 Date of : 52 Discharge: Report #: [id number] Path Case #: [id number] Note [facility] Accession Number: [id number] TESTS RESULT FLAG UNITS REF RANGE LAB Clinician Provided Cytology Information No. of containers..01 Other (Miscellaneous) Source: RLL BAL DIAGNOSIS: RLL BAL NEGATIVE FOR MALIGNANT CELLS. NORMAL BRONCHIAL CELLS AND MACROPHAGES ARE PRESENT. PULMONARY MACROPHAGES (DUST CELLS) ARE PRESENT. Signed out by: 02 Nabil Meneses MD, Pathologist NPI- [id number] Performed by: Elida Haile, Consumer Credit Counselor ([facility]) Gross description: 01 12ML, RED, CLOUDY /LCS FLAG LEGEND: L-Low Normal,H-High Normal,LL-Alert Low,HH-Alert High <-Panic Low,>-Panic High,A-Abnormal,AA-Critical Abnormal Performed at: [address] [place] [address] Shan Monteiro MD, [address] [address] Stacey Costa MD, Specimen Comment: A courtesy copy of this report has been sent to Specimen Comment: [phone]. Specimen Comment: Report sent to Specimen Comment: A duplicate report has been generated due to demographic updates. Performed at: [address], [place], [place] [id number] MD Shan Monteiro MD Phone: [phone]
--- NOTE | ~2018-04-02 | HC ---
[facility] [address] [place] [address] CONSULTATION Name: MITESH BRUNER Room #: 359-P ADM IN M.R.#: [id number] Admission: 04/02/18 Attend Phys: Felipe Ware MD Discharge: Date of : 52 Report #: [id number] THIS REPORT FOR: //name// CC: Ana Ware DATE OF SERVICE: 04/02/2018 INFECTIOUS DISEASES CONSULTATION REASON FOR CONSULTATION: I was asked to evaluate concerning pneumonia. HISTORY OF PRESENT ILLNESS: The patient is a 67-year-old with a history of aspiration pneumonia, metabolic encephalopathy, peripheral vascular disease, pulmonary hypertension, who presents with confusional state, chills, 24-hour history of not feeling well. She presented to the Emergency Room having been brought in by EMS. She lives with her brother. Did not get a history of increased alcohol intake. Denies any chest pain, cough or sputum production. No hemoptysis. No headache or sinus congestion. Denies any oropharynx pain. No travel. Last hospital stay was in December where she had an aspiration pneumonia, right lower lobe. Further evaluation noted B12 deficiency, pulmonary hypertension. REVIEW OF SYSTEMS: The patient was a poor historian. A 10-point review of systems was negative. ALLERGIES: CODEINE, PENICILLIN. Does tolerate cephalosporins. MEDICATIONS: As noted on her MAR. She was given vancomycin, Levaquin and aztreonam in the Emergency Room. PAST MEDICAL HISTORY: Ovarian carcinoma, gastric bypass surgery, hiatal hernia, atrial fibrillation, chronic anemia, peripheral vascular disease, pulmonary hypertension, cardiomyopathy, congestive heart failure, previous gastrointestinal hemorrhage, right lung pulmonary embolus, left lower extremity DVT, chronic left leg lateral lower ulcer, anxiety, depression, obstructive sleep apnea, cholecystectomy, hysterectomy, COPD. FAMILY HISTORY: Coronary artery disease and breast cancer. SOCIAL HISTORY: Past smoker, reports no current alcohol intake, although previously that was an issue. REVIEW OF SYSTEMS: CONSTITUTIONAL: Weight has been reasonably stable. She denies any fever, chills or sweats. [facility] [address] [place] [address] CONSULTATION Name: MITESH BRUNER EMILY Room #: 359-P [facility] IN M.R.#: [id number] Admission: 04/02/18 Attend Phys: Felipe Ware MD Discharge: Date of : 52 Report #: [id number] SKIN: As above. LYMPH: Negative. HEMATOLOGIC: Negative on anticoagulation for DVT and PE and atrial fibrillation. HEENT: She has upper dentures. No other issues. PULMONARY: As above. CARDIAC: As above with no syncopal episode, PND, orthopnea and peripheral edema. GASTROINTESTINAL: As above with no gastroesophageal reflux symptoms, nausea, vomiting or diarrhea. Stool, she states have been improved. GENITOURINARY: Negative. JOINTS: Negative. NEUROLOGIC: As above with no witnessed seizures. Mood: Denies any depression or anxiety issues. PHYSICAL EXAMINATION: VITAL SIGNS: She is afebrile, hemodynamically stable on 2 liters of oxygen per nasal cannula. This is at her baseline. GENERAL: She is alert and cooperative. No acute distress. Able to sit up in bed. Moderately obese. HEENT: Remarkable for upper dentures. No scleral icterus. NECK: Supple. No thyromegaly, mass, or JVD. LUNGS: Consolidation in the right base posteriorly. No rub. HEART: Regular, without appreciable murmur, gallop or rub. ABDOMEN: Soft, nontender, no hepatosplenomegaly or mass. Moderately obese. GENITOURINARY AND RECTAL: Not performed. EXTREMITIES: Left lateral leg ulcer with no cellulitis. No purulent drainage. Pulses were palpable and normal. No significant edema. NEUROLOGIC: Cranial nerves were intact. Strength in the lower extremities and upper extremities was normal. Sensation intact. Mood normal. Was a poor historian with mild confusion. LABORATORY STUDIES: Chest x-ray, right lower lobe consolidation, worse from last study in December. Laboratory studies otherwise reviewed with blood cultures pending, sputum culture pending. Nasal swab negative for influenza antigen. IMPRESSION: 1. A 67-year-old with pulmonary hypertension, chronic obstructive pulmonary disease, recurrent right lower lobe infiltrate. Suspecting aspiration pneumonia again, most likely cause of her presentation. In addition, has atrial fibrillation. 2. Chronic left ankle wound, PENICILLIN allergy. RECOMMENDATIONS: We will continue IV antibiotic therapy pending further culture results. We will screen for MRSA, obtain sputum culture, urine antigens, [address] [address] CONSULTATION Name: MITESH BRUNER EMILY Room #: 359-P [facility] IN M.R.#: [id number] Admission: 04/02/18 Attend Phys: Felipe Ware MD Discharge: Date of : 52 Report #: [id number] influenza and viral respiratory panel screening. Continue with aspiration precautions. Continue localized wound care to the left leg. <ELECTRONICALLY SIGNED> By: Rajeev Santiago MD 04/03/18 0813 1326 25 Rajeev Santiago MD /nt
[2018-04-02 09:13] VITALS: BP 120/45
[2018-04-02 09:29] LABS: BE(vivo) 1.5 mmol/L (-2 to +3); HCO3 25.4 mmol/L (22.0-26.0); PCO2 37.8 mmHg (35.0-45.0); PO2 60.4 mmHg (80.0-100.0); pH 7.445 (7.360-7.450); sO2 92.2 % (92.0-98.0)
[2018-04-02 09:49] LABS: ABSOLUTE NEUTROPHILS 6.8 thou/uL (1.4-8.2); BASOPHILS 0.3 % (0.0-2.0); EOSINOPHILS 0.2 % (0.0-3.0); HEMATOCRIT 33.7 % (37.0-47.0); HEMOGLOBIN 11.1 gm/dL (12.0-15.0); LYMPHOCYTES 4.1 % (24.0-44.0); MCH 29.4 pg (26.0-34.0); MONOCYTES 3.9 % (1.0-8.0); PLATELET COUNT 233 thou/uL (150-400); POLYS 91.5 % (36.0-66.0); RBC 3.78 mil/uL (4.20-5.00); RDW 15.6 % (10.5-14.5); WBC 7.5 thou/uL (4.0-11.0)
[2018-04-02 09:57] LABS: ANION GAP 6 mmol/L (7-16); BUN 18 mg/dL (7-18); CALCIUM 8.9 mg/dL (8.5-10.1); CHLORIDE 104 mmol/L (98-107); CO2 29 mmol/L (21-32); CREATININE 0.9 mg/dL (0.6-1.0); GLUCOSE 107 mg/dL (74-106); POTASSIUM 3.9 mmol/L (3.5-5.1); SODIUM 139 mmol/L (136-145)
[2018-04-02 09:58] LABS: URINE BILIRUBIN NEGATIVE (Negative); URINE BLOOD NEGATIVE (Negative); URINE CLARITY SL CLOUDY; URINE COLOR YELLOW; URINE GLUCOSE-RANDOM* NEGATIVE (Negative); URINE KETONES NEGATIVE (Negative); URINE LEUKOCYTES-REFLEX NEGATIVE (Negative); URINE NITRITE-REFLEX NEGATIVE (Negative); URINE PROTEIN (DIPSTICK) NEGATIVE (Negative)
[2018-04-02] MEDS ORDERED: REGLAN 10 MG TA10 MG PO (10:00)
[2018-04-02 10:06] LABS: ALBUMIN 3.3 g/dL (3.4-5.0); SGOT 15 U/L (15-37); SGPT 14 U/L (30-65); TOTAL BILIRUBIN 0.5 mg/dL (<0.1-1.0); TOTAL PROTEIN 7.6 g/dL (6.4-8.2); TROPONIN-I <0.06 ng/mL (<0.06)
[2018-04-02 10:21] LABS: PROTIME 10.7 Seconds (9.3-11.4)
[2018-04-02 10:57] VITALS: BP 116/53
[2018-04-02 11:34] VITALS: BP 109/61
[2018-04-02 12:21] VITALS: BP 102/50
[2018-04-02 16:40] VITALS: BP 117/58
[2018-04-02 19:29] VITALS: BP 114/59
[2018-04-03 03:45] VITALS: BP 136/51
[2018-04-03 05:59] LABS: HEMATOCRIT 26.4 % (37.0-47.0); MCH 29.4 pg (26.0-34.0); MCHC 32.9 g/dL (28.0-37.0); MCV 89.5 fL (80.0-100.0); RBC 2.95 mil/uL (4.20-5.00); RDW 15.3 % (10.5-14.5); WBC 8.7 thou/uL (4.0-11.0)
[2018-04-03 06:01] LABS: HEMOGLOBIN 8.7 gm/dL (12.0-15.0)
[2018-04-03 06:03] LABS: CREATININE 0.6 mg/dL (0.6-1.0); POTASSIUM 3.7 mmol/L (3.5-5.1)
[2018-04-03 08:22] VITALS: BP 135/55
[2018-04-03 11:49] VITALS: BP 111/64
[2018-04-03 17:00] VITALS: BP 140/58
[2018-04-03 19:59] VITALS: BP 145/56
[2018-04-04] VITALS (8 sets, daily range): BP systolic 117–141; BP diastolic 47–78
[2018-04-04 05:49] LABS: HEMATOCRIT 25.3 % (37.0-47.0); HEMOGLOBIN 8.2 gm/dL (12.0-15.0); MCH 28.7 pg (26.0-34.0); MCHC 32.3 g/dL (28.0-37.0); MCV 88.9 fL (80.0-100.0); RBC 2.85 mil/uL (4.20-5.00); RDW 15.5 % (10.5-14.5)
[2018-04-04 06:06] LABS: CALCIUM 8.1 mg/dL (8.5-10.1); CREATININE 0.6 mg/dL (0.6-1.0); POTASSIUM 3.6 mmol/L (3.5-5.1)
[2018-04-04 07:58] LABS: % SATURATION 7 % (20-39); IRON 20 ug/dL (50-170); TIBC 274 ug/dL (250-450)
[2018-04-04 08:12] LABS: ABSOLUTE RETIC COUNT 0.0336 10^6/uL; OBSERVED RETIC COUNT 1.2 % (0.6-2.6)
[2018-04-04 14:49] LABS: BF NUCLEATED CELLS 1150; BF RBC 22092
[2018-04-04 14:51] LABS: CLARITY CLOUDY
[2018-04-04 14:52] LABS: COLOR RED
[2018-04-04 14:53] LABS: TOTAL VOLUME 11 mL
[2018-04-04 15:09] LABS: SOURCE RLL BAL
[2018-04-04 15:34] LABS: BF MACROPHAGE 20; BF NEUTROPHILS 66
[2018-04-05 04:17] VITALS: BP 139/44
[2018-04-05 05:49] LABS: HEMATOCRIT 24.7 % (37.0-47.0); HEMOGLOBIN 8.1 gm/dL (12.0-15.0); MCH 29.3 pg (26.0-34.0); MCHC 32.8 g/dL (28.0-37.0); MCV 89.3 fL (80.0-100.0); RBC 2.76 mil/uL (4.20-5.00); RDW 15.3 % (10.5-14.5); WBC 5.9 thou/uL (4.0-11.0)
[2018-04-05 06:00] LABS: CALCIUM 8.2 mg/dL (8.5-10.1); CREATININE 0.6 mg/dL (0.6-1.0); POTASSIUM 3.8 mmol/L (3.5-5.1)
[2018-04-05 08:31] VITALS: BP 149/38
[2018-04-05 11:26] VITALS: BP 136/57
[2018-04-05 15:47] VITALS: BP 156/62
[2018-04-05 16:36] LABS: ADENOVIRUS Negative (Negative); INFLUENZA A Negative (Negative); INFLUENZA B Negative (Negative); METAPNEUMOVIRUS Negative (Negative); PARAINFLUENZA 1 Negative (Negative); PARAINFLUENZA 2 Negative (Negative); PARAINFLUENZA 3 Negative (Negative); RHINOVIRUS Negative (Negative); RSV A Negative (Negative); RSV B Negative (Negative)
[2018-04-05 19:32] VITALS: BP 146/59
[2018-04-06 05:41] VITALS: BP 155/62
[2018-04-06 06:46] LABS: HEMATOCRIT 25.3 % (37.0-47.0); HEMOGLOBIN 8.4 gm/dL (12.0-15.0); MCH 29.5 pg (26.0-34.0); MCHC 33.2 g/dL (28.0-37.0); MCV 89.1 fL (80.0-100.0); RBC 2.84 mil/uL (4.20-5.00); RDW 15.4 % (10.5-14.5); WBC 4.5 thou/uL (4.0-11.0)
[2018-04-06 07:02] LABS: CALCIUM 8.6 mg/dL (8.5-10.1); CREATININE 0.7 mg/dL (0.6-1.0); POTASSIUM 3.4 mmol/L (3.5-5.1)
[2018-04-06 08:08] VITALS: BP 146/56
[2018-04-06 10:48] VITALS: BP 146/56
[2018-04-06 12:00] VITALS: BP 123/54
[2018-04-06 16:20] VITALS: BP 130/77
[2018-04-06 20:31] VITALS: BP 144/56
[2018-04-07 05:10] VITALS: BP 108/41
[2018-04-07 08:51] VITALS: BP 124/43
[2018-04-07 12:46] VITALS: BP 149/49
[2018-04-07 18:00] VITALS: BP 136/53
[2018-04-07 19:30] VITALS: BP 119/53
[2018-04-08 03:32] VITALS: BP 120/58
[2018-04-08 07:20] VITALS: BP 153/56
[2018-04-08 11:30] VITALS: BP 122/54
[2018-04-08 15:48] VITALS: BP 124/52
[2018-04-08 19:40] VITALS: BP 165/61
[2018-04-09 04:12] VITALS: BP 160/66
[2018-04-09 07:36] VITALS: BP 141/62
[2018-04-09 11:40] VITALS: BP 133/42
[2018-04-09] MEDS ORDERED: CEFDINIR300 MG PO (15:46)
[2018-04-09] MEDS ORDERED: ACETAMINOPHEN325 M1 PO (15:46)
[2018-04-09 17:19] VITALS: BP 146/56
[2018-04-09 17:58] VITALS: BP 146/56
== END 2018-04-09 18:16 | disposition home health service (06) | DRG 177 ==
LOC: ER 09:12 → 3W 10:34 → EROBS 10:34 → 3W 11:39
PROVIDERS: Hospitalist; Pediatrics; Physician Assistant; Specialist; Student in an Organized Health Care Education/Training Program
PROC: 0BDF8ZX Extraction of Right Lower Lung Lobe, Via Natural or Artificial Opening Endoscopic, Diagnostic (ICD-10-PCS; principal; 2018-04-04)
PROC: 0B9F8ZX Drainage of Right Lower Lung Lobe, Via Natural or Artificial Opening Endoscopic, Diagnostic (ICD-10-PCS; principal; 2018-04-04)
DX: J69.0 Pneumonitis due to inhalation of food and vomit (principal); G93.41 Metabolic encephalopathy; J96.01 Acute respiratory failure with hypoxia; I50.33 Acute on chronic diastolic (congestive) heart failure; E43 Unspecified severe protein-calorie malnutrition; J96.21 Acute and chronic respiratory failure with hypoxia; I27.20 Pulmonary hypertension, unspecified; E78.5 Hyperlipidemia, unspecified; J44.9 Chronic obstructive pulmonary disease, unspecified; F41.9 Anxiety disorder, unspecified; F32.9 Major depressive disorder, single episode, unspecified; D64.9 Anemia, unspecified; K44.9 Diaphragmatic hernia without obstruction or gangrene; G47.33 Obstructive sleep apnea (adult) (pediatric); I25.10 Atherosclerotic heart disease of native coronary artery without angina pectoris; I73.9 Peripheral vascular disease, unspecified; F03.90 Unspecified dementia, unspecified severity, without behavioral disturbance, psychotic disturbance, mood disturbance, and anxiety; I48.2 Chronic atrial fibrillation; Z79.01 Long term (current) use of anticoagulants; Z68.32 Body mass index [BMI] 32.0-32.9, adult; Z85.43 Personal history of malignant neoplasm of ovary; Z88.0 Allergy status to penicillin; Z86.711 Personal history of pulmonary embolism; Z92.21 Personal history of antineoplastic chemotherapy; Z92.3 Personal history of irradiation; Z86.718 Personal history of other venous thrombosis and embolism; Z90.49 Acquired absence of other specified parts of digestive tract; Z90.710 Acquired absence of both cervix and uterus; Z88.6 Allergy status to analgesic agent; Z87.891 Personal history of nicotine dependence; Z82.49 Family history of ischemic heart disease and other diseases of the circulatory system; Z80.3 Family history of malignant neoplasm of breast; Z79.899 Other long term (current) drug therapy
CPT/HCPCS: 10879

== ENCOUNTER 2018-06-08 09:29 | Inpatient (IN) | payer OTHER ==
[~2018-06-08] VITALS: Ht 170.2 cm; Wt 87.2 kg
[~2018-06-08 09:29] MED LIST changes: +ACETAMINOPHEN325 M1 PO
[2018-06-08 09:34] VITALS: BP 155/57
[2018-06-08 10:37] LABS: BE(vivo) 3.3 mmol/L (-2 to +3); HCO3 27.4 mmol/L (22.0-26.0); PCO2 39.8 mmHg (35.0-45.0); PO2 68.8 mmHg (80.0-100.0); pH 7.456 (7.360-7.450); sO2 94.6 % (92.0-98.0)
[2018-06-08 10:38] LABS: URINE BILIRUBIN NEGATIVE (Negative); URINE BLOOD NEGATIVE (Negative); URINE CLARITY CLEAR; URINE COLOR YELLOW; URINE GLUCOSE-RANDOM* NEGATIVE (Negative); URINE KETONES NEGATIVE (Negative); URINE LEUKOCYTES-REFLEX TRACE (Negative); URINE NITRITE-REFLEX NEGATIVE (Negative); URINE PROTEIN (DIPSTICK) NEGATIVE (Negative); URINE UROBILINOGEN 0.2 E.U./dl (0.2-1.0)
[2018-06-08 10:45] LABS: AMP/METHAMP Negative (Negative); BARBITURATES Negative (Negative); BENZODIAZEPINES Negative (Negative); COCAINE Negative (Negative); METHADONE Negative (Negative); OPIATES Negative (Negative); PCP Negative (Negative)
[2018-06-08 13:04] VITALS: BP 155/57
[2018-06-08 13:20] VITALS: BP 135/74
[2018-06-08 13:33] LABS: HEMATOCRIT 31.7 % (37.0-47.0); HEMOGLOBIN 10.5 gm/dL (12.0-15.0); MCH 29.3 pg (26.0-34.0); MCHC 33.2 g/dL (28.0-37.0); MCV 88.2 fL (80.0-100.0); RBC 3.6 mil/uL (4.20-5.00); RDW 16.5 % (10.5-14.5); WBC 8.4 thou/uL (4.0-11.0)
[2018-06-08 13:34] VITALS: BP 132/53
[2018-06-08 13:49] LABS: ANION GAP 7 mmol/L (7-16); BUN 21 mg/dL (7-18); CALCIUM 8.6 mg/dL (8.5-10.1); CHLORIDE 105 mmol/L (98-107); CO2 32 mmol/L (21-32); CREATININE 0.9 mg/dL (0.6-1.0); GLUCOSE 111 mg/dL (74-106); SODIUM 144 mmol/L (136-145); TROPONIN-I <0.06 ng/mL (<0.06)
[2018-06-08 13:51] LABS: POTASSIUM 2.9 mmol/L (3.5-5.1)
--- NOTE | 2018-06-08 14:47 | NUR ---
pt received to rm 352 per stretcher from er. pt drowsy and lethargic. o2 on @ 3lnc. maex4. aox4. iv access to rue 2 lumen picc, xray confirmed placement and use. vss. no family w/ pt at this time. pt noted to be a poor historian at this time.
--- NOTE | 2018-06-08 15:24 | EKG ---
[address] [address] ELECTROCARDIOGRAM REPORT Name: ORLANDO BRUNERLMA EMILY Room #: 352-P ADM IN M.R.#: [id number] Admission: 06/08/18 Attend Phys: Ang Reed MD Discharge: Date of : 52 Report #: [id number] THIS REPORT FOR: //name// [facility] ED Test Date: 2018-06-08 Test Time: 11:11:33 Pat Name: MITESH BRUNER Department: Room: [facility] Gender: F Materials Technician: : 1950 Requested By: Demetrius Eaton Order Number: [id number] MD: Varun Naranjo Measurements Intervals [place] Rate: 78 P: IA: QRS: -42 QRSD: 100 T: -72 QT: 335 QTc: 382 Interpretive Statements Atrial fibrillation Incomplete RBBB and LAFB Nonspecific T abnormalities, lateral leads Compared to ECG 04/02/2018 09:29:06 Electronically Signed On 06-08-2018 15:23:55 THEATRICAL RIGGER by Varun Naranjo [email or web address] <ELECTRONICALLY SIGNED> By: Varun Naranjo MD 06/08/18 1523 1111 1111 Varun Naranjo MD /EPI
--- NOTE | 2018-06-08 15:27 | NUR ---
WOUND CONSULT: PT. WAS SEEN TODAY BY DR. CHAVEZ AND MYSELF. PT. IS WELL KNOWN TO THE WOUND CARE TEAM. PT. HAS A CHRONIC VASCULAR WOUND TO HER LEFT LATERAL ANKLE. WOUND DOES NOT APPEAR TO BE INFECTED AT THIS TIME. RECOMMENDATIONS: PUROCAL AG TO WOUND BED, COVER WITH OPTIFOAM BORDER, COMPLETE CARES M/W/F AND PRN. PT. AND STAFF NURSE WERE INSTRUCTED ON WOUND CARE.
[2018-06-08 16:28] VITALS: BP 135/74
[2018-06-08 20:00] VITALS: BP 109/54
--- NOTE | 2018-06-09 02:07 | NUR ---
ASSUMED PT CARE 190. PT ALERT AND ORIENTED AT BEGINGING OF SHIFT. PT became slightly lethargic as evening progessed. pt stated feeling "not right" but could not explain what was wrong. complained of dizziness while getting up to bsc. vss. 3l 02 via nc, o2 sat in upper 90's. pt on continuous o2 monitoring. pt has bilateral swelling le. double lumen picc to martinez, dressing c/d/i. both ports flush and aspirate for blood. blood sugar levels good, no insulin needed. ankle ulcer dressing to l lat ankle c/d/i. pt tolerated drinking water well. pt denies pain. pt call light and personal belongings within reach. will continue poc until eos.
[2018-06-09 04:09] VITALS: BP 118/40
[2018-06-09 06:16] LABS: HEMATOCRIT 31.7 % (37.0-47.0); HEMOGLOBIN 10.2 gm/dL (12.0-15.0); MCH 28.7 pg (26.0-34.0); MCHC 32.1 g/dL (28.0-37.0); MCV 89.4 fL (80.0-100.0); RBC 3.55 mil/uL (4.20-5.00); RDW 16.7 % (10.5-14.5); WBC 13.4 thou/uL (4.0-11.0)
[2018-06-09 06:27] LABS: CALCIUM 9.1 mg/dL (8.5-10.1); CREATININE 0.8 mg/dL (0.6-1.0)
[2018-06-09 06:31] LABS: POTASSIUM 4.1 mmol/L (3.5-5.1)
[2018-06-09 12:09] VITALS: BP 120/52
--- NOTE | 2018-06-09 16:57 | NUR ---
Assumed care of Pt at 0700. Pt alert and oriented x3, in no acute distress. Breathing comfortably on 3L NC. crackles to auscultation. up w/ steady gait - standby assist. ambulated around needs frequent reminders regarding aspiration precautions - no talking while eating, etc. iv abx infusing per order. calls out appropriately. socializing with brother at bedside. sinus on telemetry. will cont to monitor. progressing toward poc goals.
[2018-06-09 20:00] VITALS: BP 104/54
[2018-06-10 04:10] VITALS: BP 126/59
[2018-06-10 06:09] LABS: ABSOLUTE NEUTROPHILS 13.9 thou/uL (1.4-8.2); BASOPHILS 0.1 % (0.0-2.0); HEMOGLOBIN 9.2 gm/dL (12.0-15.0); LYMPHOCYTES 2.8 % (24.0-44.0); MCH 29.3 pg (26.0-34.0); MCV 88.5 fL (80.0-100.0); MONOCYTES 2.5 % (1.0-8.0); PLATELET COUNT 163 thou/uL (150-400); POLYS 94.6 % (36.0-66.0); RBC 3.16 mil/uL (4.20-5.00); RDW 16.7 % (10.5-14.5); WBC 14.7 thou/uL (4.0-11.0)
[2018-06-10 06:12] LABS: CALCIUM 8.8 mg/dL (8.5-10.1)
--- NOTE | 2018-06-10 07:32 | NUR ---
Pt a/o x 4. On O2 3L NC with continuous pulse ox monitoring. Denies pain. On Abx therapy. Anxiety noted with constant talking. Pt educated to conserve energy, relax and rest. Pt verbalized understanding of the teaching. VSS. No apparent distress. Will continue to monintor.
[2018-06-10 09:22] VITALS: BP 114/53
--- NOTE | 2018-06-10 15:18 | HC ---
[facility] [address] [place] [address] CONSULTATION Name: MITESH BRUNER Room #: 352-P ADM IN M.R.#: [id number] Admission: 06/08/18 Attend Phys: Ang Reed MD Discharge: Date of : 52 Report #: [id number] THIS REPORT FOR: //name// CC: Ang Badillo REFERRAL PHYSICIAN: Ang Reed MD REASON FOR REFERRAL: Hypoxia and pneumonia. HISTORY OF PRESENT ILLNESS: The patient is a 67-year-old white female who presents to the Emergency Room with altered mental status. Chest x-ray shows a significant right-sided infiltrates involving the right upper lobe and part of the right lower lobe. Pulmonary consultation was requested. For the past 2 years, the patient has had numerous hospitalizations. This year alone, this will be a seventh admission. She was last hospitalized in March for pneumonia. Earlier today, the patient's brother found the patient unconscious, sprawled out on the floor. Her saturation was said to be low at 76%. Portable chest x-ray performed in the ER showed extensive right-sided infiltrates as mentioned above. She is currently resting comfortably. Saturation adequate on supplemental O2. PAST MEDICAL HISTORY: Includes recurrent aspiration pneumonia with multiple hospitalizations; most of the infiltrates in the past have been in the right lower lobe; COPD, severe impairment; baseline FEV1 of 1.19 liters, 51% predicted; chronic respiratory failure, on oxygen at nights; atrial fibrillation; chronic diarrhea; iron deficiency anemia; peripheral artery disease status post right iliac stent placement; history of ovarian cancer status post surgery, chemo and radiation; mitral valve prolapse; tobacco abuse, having quit smoking in 2017; pulmonary hypertension due to severe pulmonary disease; chronic left ankle ulcer; past history of respiratory failure requiring intubation; progressive debility and weakness; chronic left lower extremity DVT, on anticoagulation; past history of pulmonary embolus; history of GI bleed; depression, anxiety; history of sleep apnea, not intolerant to the use of CPAP; dyslipidemia. PAST SURGICAL HISTORY: Includes gastric bypass surgery, tonsillectomy, hysterectomy. ALLERGIES: PENICILLIN WHICH CAUSES RASH, CODEINE CAUSES RASH. HOME MEDICATIONS: Reviewed and is incomplete. [address] [address] CONSULTATION Name: MITESH BRUNER Room #: 352-P [facility] IN ..#: [id number] Admission: 06/08/18 Attend Phys: Ang Reed MD Discharge: Date of : 52 Report #: [id number] FAMILY HISTORY: Noncontributory. SOCIAL HISTORY: The patient has smoked most of her life until 2017. She denies any alcohol use. REVIEW OF SYSTEMS: Deferred as the patient is a moderately somnolent this afternoon. PHYSICAL EXAMINATION: GENERAL: She is arousable, in no apparent distress. VITAL SIGNS: Temperature is 98 degrees Fahrenheit, pulse is 78, respiratory rate is 18, blood pressure 135/74 mmHg, saturation 94%. HEENT: Normocephalic, atraumatic. NECK: Supple without any lymphadenopathy or thyromegaly. CHEST: Breath sounds are fair. Rales in the right lung field. No wheezes. CARDIOVASCULAR: Normal S1, S2. There are no murmurs or gallop. There is no JVD. There is no carotid bruit. Pulses are 2+/4+ bilaterally. ABDOMEN: Soft, nontender, no organomegaly or masses felt. GENITOURINARY: Deferred. RECTAL: Deferred. EXTREMITIES: There is no edema, cyanosis or clubbing. LABORATORY DATA: Chest x-ray as mentioned above. Influenza A and B is negative. CT head is negative for any acute ischemic changes. Electrolytes are normal except for potassium of 2.9. WBC 8400, hemoglobin 10.5. Arterial blood gas revealed pH 7.45, pCO2 of 39, pO2 of 68 on 3 liters of O2. IMPRESSION: 1. Acute hypoxic respiratory failure in this 67-year-old white female. Chest x-ray shows extensive right-sided infiltrates. She has a history of recurrent aspiration pneumonia. 2. Extensive right-sided infiltrate, likely recurrent aspiration pneumonia. 3. Chronic obstructive pulmonary disease, moderately severe impairment. 4. Severe pulmonary hypertension due to severe pulmonary impairment. 5. Permanent atrial fibrillation, on chronic anticoagulation. 6. Altered mental status may be related to underlying psychiatric disorder. She has been seen in the past by Psychiatry with concerns for depression, dementia. 7. Iron deficiency anemia. 8. Peripheral artery disease. 9. Progressive debility and weakness. 10. Chronic left lower extremity deep venous thrombosis, history of pulmonary embolus, on anticoagulation. 11. Remote history of gastric bypass surgery. 12. Frequent hospitalizations. [address] [address] CONSULTATION Name: MITESH BRUNER Room #: 352-P [facility] IN M.R.#: [id number] Admission: 06/08/18 Attend Phys: Ang Reed MD Discharge: Date of : 52 Report #: [id number] RECOMMENDATION: Would suggest broad spectrum antibiotics to cover for aspiration pneumonia. She is allergic to PENICILLIN. Gram-negative coverage and anaerobic coverage will be recommended along with Gram-positive coverage. Because of extensive infiltrates, she should be monitored closely. Continuous pulse ox is recommended. Wean O2 for saturation 90%. DVT and GI prophylaxis is indicated. She is already on anticoagulation. MEDICAL DIRECTIVES: No code blue is noted. Thank you for this consultation. <ELECTRONICALLY SIGNED> By: Chi Solis MD 06/10/18 1518 1659 1811 Chi Solis MD /nt
[2018-06-10 16:00] VITALS: BP 110/52
--- NOTE | 2018-06-10 19:46 | NUR ---
care of pt assumed this am @ 0700. pt noted to be resting quietly and comfortably in bed this am, ate breakfast in bed. pt encouraged to be more active, out of her bed, today. pt up to the bthrm to void and stool today, no use of the bsc. pt also, up in chair for ~ 6 hours today, also eating lunch in her chair. pt enjoyed the chair stating the her back felt better in the chair vs her bed. pt took 2 long naps today while in the chair, as that was a goal of the pt today to "catch up on her sleep". pt is also looking to the [facility] rn to allow her 4-6 hour blocks of uninterupted sleep tonight. pt co of mild soa w/ exertion, on 3lt nc today, she states she wears 3lt nc at [facility] at home. pt w/ a non productive cough today. continuous pulse oximetry on, pt would like to ask dr. prado, tomorrow, if he will dc it due to "the racket" it makes throughout the day when she is using her hands. pt received a shower today which improved her mood/spirits.
[2018-06-10 20:13] VITALS: BP 128/58
[2018-06-11 03:39] VITALS: BP 143/70
[2018-06-11 05:34] LABS: ABSOLUTE NEUTROPHILS 11.4 thou/uL (1.4-8.2); BASOPHILS 0.1 % (0.0-2.0); LYMPHOCYTES 4.5 % (24.0-44.0); MCH 28.6 pg (26.0-34.0); MCHC 32.1 g/dL (28.0-37.0); MONOCYTES 1.7 % (1.0-8.0); PLATELET COUNT 192 thou/uL (150-400); POLYS 93.7 % (36.0-66.0); RBC 3.15 mil/uL (4.20-5.00); RDW 16.7 % (10.5-14.5); WBC 12.2 thou/uL (4.0-11.0)
[2018-06-11 05:43] LABS: CALCIUM 8.6 mg/dL (8.5-10.1); CREATININE 0.9 mg/dL (0.6-1.0); POTASSIUM 3.9 mmol/L (3.5-5.1)
[2018-06-11 07:27] VITALS: BP 114/53
--- NOTE | 2018-06-11 07:46 | NUR ---
PATIENT IS PROGRESSING IN HER CARE PLAN. VITAL SIGNS STABLE WITH PATIENT HAVING NO COMPLAINTS OF PAIN OR NAUSEA. PATIENT REMAINED MOSTLY ORIENTED DURING SHIFT BUT DID HAVE A PERIOD OF CONFUSION THIS MORNING. BREATHING STABLE ON OXYGEN PER ORDER EVIDENCED BY STABLE READINGS ON CONTINUOUS PULSE OX. PATIENT WAS UP TO RESTROOM MULTIPLE TIMES WITH STANDBY ASSISTANCE AND WALKER INCIDENT FREE; SHE WAS CONSIDERED A HIGH FALL RISK. ASPIRATION PRECAUTIONS TAKEN WITH NECTAR THICKENED LIQUIDS PROVIDED. PATIENT HAD A BOWEL MOVEMENT THIS MORNING. DRESSING ON LEFT FOOT C/D/I. CONTINUE PLAN OF CARE.
--- NOTE | 2018-06-11 10:09 | NUR ---
ASSESSMENT: CM REVIEWED CHART AND MET WITH PATIENT AT THE BEDSIDE. PT IS ALERT AND ORIENTED X4. PT REPORTS SHE LIVES IN A HOUSE WITH HER BROTHER. PT REPORTS ABOUT 4-5 STEPS TO ENTER THE HOME WITH HANDRAILS. PT REPORTS HER BEDROOM IS ON THE MAIN LEVEL BUT SHE DOES HAVE ABOUT 11 STEPS WITH HANDRAILS TO THE BASEMENT WHERE THE LAUNDRY IS. PT REPORTS HER BROTHER DOES THE LAUNDRY AND SHE ALSO HAS A NEIGHBOR WHO IS SUPPORTIVE AND HELPFUL IF NEEDED. PT REPORTS HAVING A CANE/WALKER/WHEELCHAIR. PT STATES SHE IS CURRENTLY IN SERVICES WITH [facility]. CM REQUESTED [employer] FAX REFERRAL TO [facility]. PT ALSO HAS OXYGEN ARRANGED AT HOME AND STATES SHE WEARS 3L AT [employer] AND UNSURE THE COMPANY BUT HAS BEEN WITH THEM FOR YEARS. PT PLANS TO RETURN HOME WITH [facility] ONCE MEDICALLY STABLE. ONCE PATIENT IS MEDICALLY STABLE CONTACT [facility] [phone] TO NOTIFY OF DISCHARGE, FAX DISCHARGE ORDERS/SUMMARY TO FAX: [phone] ATTENTION: [facility]. THEY CAN ACCEPT PATIENT FOR ONCE MEDICALLY STABLE.
--- NOTE | 2018-06-11 10:24 | NUR ---
dp faxed referral to [facility] ([place]). Patient likely to dc today or tomorrow, and is currently with their HH and will resume up dc. DP will call to ensure delivery of fax.
--- NOTE | 2018-06-11 11:10 | NUR ---
Nutrition: assess d/t consult. Pt admitted for SOA. Hx of COPD, CHF, PCM, and gastric bypass. Pt denies any recent weight loss, thinks she has gained a litte. She is actively trying to lose weight with a goal of 165 lbs, which is adequate for her height. She has had some decreased appetite recently, but is eating better now. She reports having issues with aspiration when eating and talking. This is decreased if she concentrates on only eating. Stressed the importance of adequate calorie intake and suggested the use of supplements while appetite is poor. Pt was not open to using supplements at this time d/t fear of more wt gain. Will follow-up 06/15/18 to assess intake. Otherwise consider low risk.
--- NOTE | 2018-06-11 11:34 | HC ---
[facility] [address] [place] [address] CONSULTATION Name: MITESH BRUNER Room #: 352-P ADM IN M.R.#: [id number] Admission: 06/08/18 Attend Phys: Ang Reed MD Discharge: Date of : 52 Report #: [id number] THIS REPORT FOR: //name// CC: Ang Badillo DATE OF SERVICE: 06/08/2018 REASON FOR CONSULTATION: Evaluation concerning recurrent pneumonia. HISTORY OF PRESENT ILLNESS: The patient is a 67-year-old with history of aspiration pneumonia with multiple visits to [facility], mostly with right upper lobe, right lower lobe pulmonary infiltrate. She has a hiatal hernia. She did pass a video swallow in late March, although it was still suspected to have aspiration for she has a little large hernia. She underwent a bronchoscopy with Klebsiella and yeast growing from the specimen. No endobronchial lesions. Treated with a prolonged course of antibiotic therapy. I have not seen her in followup. During her hospitalization, she has also been diagnosed with pulmonary hypertension and B12 deficiency. Last 48 hours, she states she had not felt well, just more fatigued and malaise. No fever, chills or sweats. Went to bed last night and last thing she remembers prior to waking up here in the Emergency Room. She was hypoxic. Chest x-ray showed extensive right lung infiltrate, predominantly in the right upper lobe. She has had some cough with minimal sputum production. No nausea or vomiting. No abdominal pain. She does have chronic loose stools. There have been no rashes or arthritis symptoms. Denies any headache or pharyngitis symptoms. No sinus discharge. No other hematologic or lymphatic issues. She does have chronic venous stasis disease and an ulcer to her left ankle. She does have a history of anxiety and depression. She has obstructive sleep apnea. REVIEW OF SYSTEMS: A 10-point review of systems was negative other than what is described above. ALLERGIES: CODEINE AND PENICILLIN, although does tolerate cephalosporins. MEDICATIONS: As noted on her MAR which were reviewed. PAST MEDICAL HISTORY: Ovarian carcinoma, gastric bypass surgery, hiatal hernia, atrial fibrillation, chronic anemia, peripheral vascular disease, pulmonary hypertension, cardiomyopathy with congestive heart failure, gastrointestinal hemorrhage, right lung pulmonary emboli, left lower extremity DVT, chronic left leg lateral ankle ulcer with venous stasis disease, anxiety, depression, COPD, cholecystectomy, hysterectomy. FAMILY HISTORY: Coronary artery disease, breast cancer. [facility] [address] [place] [address] CONSULTATION Name: MITESH BRUNER Room #: 352-P [facility] IN [facility]#: [id number] Admission: 06/08/18 Attend Phys: Ang Reed MD Discharge: Date of : 52 Report #: [id number] SOCIAL HISTORY: Past smoker. No current alcohol intake reported. PHYSICAL EXAMINATION: VITAL SIGNS: Afebrile, hemodynamically stable, on 3 liters of oxygen per nasal cannula. GENERAL: The patient is sitting up in bed in no distress. She was pleasant and cooperative. SKIN: Without rash or decubitus. She did have venous stasis changes on the left with a lateral ankle ulcer. No purulent drainage. No palpable adenopathy. HEENT: Eyes without scleral icterus or conjunctivitis. Mouth without mucositis or lesion. NECK: Supple with no thyromegaly, mass or JVD. LUNGS: She had consolidation in the right posterior mid upper chest. No rub. HEART: Irregular without murmur, gallop or rub. ABDOMEN: Obese, soft, nontender, no hepatosplenomegaly or mass appreciated. GENITAL AND RECTAL: Not performed. EXTREMITIES: Left lateral leg ulcer without cellulitis. Pulses were palpable. No significant edema. NEUROLOGIC: Cranial nerves intact. Strength in the lower extremities and upper extremities is normal with normal sensation to touch. Mood was normal. She was a reasonable historian. LABORATORY STUDIES: Chest x-ray with right lung infiltrate, predominantly in the upper lobe. Urinalysis unremarkable. Drug screen was negative. ABG on 3 liters showed a pO2 of 68, pCO2 of 39, pH 7.45. Lactate was 1.3, hemoglobin 10.5, WBC 8.4, platelet count 205,000. Sodium 144, potassium 2.9, bicarbonate 32, creatinine 0.9. BNP 2645. Troponin negative. Blood cultures and sputum culture pending. Influenza antigen negative. Electrocardiogram showed atrial fibrillation. IMPRESSION: Recurrent right lung infiltrate, predominantly in the right upper lobe. This is much different than her previous chest x-ray on 04/02/2018 which had predominance in the right lower lobe. I am suspecting aspiration pneumonia again in this setting. We have yet to identify the specific occult factor leading to this aspiration episodes. She did pass a video swallow. She does have a hiatal hernia, which may be a part of the problem. So far, we have not identified drugs or alcohol to be the predominant issue. I doubt we are dealing with an opportunistic infection. Other community-acquired organisms also considered. Her metabolic encephalopathy has improved. She has a chronic left leg wound without evidence of osteomyelitis. Underlying chronic obstructive pulmonary disease, underlying obstructive sleep apnea, underlying congestive heart failure, underlying pulmonary hypertension, underlying atrial fibrillation. RECOMMENDATION: We will continue antibiotic coverage with vancomycin and [address] [address] CONSULTATION Name: MITESH BRUNER Room #: 352-P [facility] IN ..#: [id number] Admission: 06/08/18 Attend Phys: Ang Reed MD Discharge: Date of : 52 Report #: [id number] Levaquin. THE PATIENT IS PENICILLIN ALLERGIC. We will obtain sputum culture, legionella, strep pneumo antigen and continue with aspiration precautions. Continue local wound care to her left leg. Adjust antibiotics pending further microbiology reports. <ELECTRONICALLY SIGNED> By: Rajeev Santiago MD 06/11/18 [id number] Rajeev Santiago MD /nt
[2018-06-11 12:12] VITALS: BP 114/53
[2018-06-11 17:50] VITALS: BP 113/50
--- NOTE | 2018-06-11 18:43 | NUR ---
pt verbalized a great night's sleep last night which she stated she really needed. pt is hopeful for another tonight. pt on o2 per 21lt nc today, pt noted to removed to ambulate the bthrm and while seated in bed or chair when resting. pt has denies soa today. pt refused to wear her continuous pulse oximetry today rt the alarm going off and annoying her. she states she will as dr. valdez to dc tomorrow. iv antbx dc'd and antbx po now. dietary consult done. pt up in her chair for ~ 6 hours today. pt is hopeful for a discharge soon as she states she need to care for her brother (who has cancer).
[2018-06-11 20:01] VITALS: BP 103/51
--- NOTE | 2018-06-12 00:26 | NUR ---
PATIENT IS ALERT AND ORIENTED BUT VERY FORGETFUL DUE TO OLD BRAIN INJURY. PATIENT NEEDS LOTS OF ENCOURAGEMENT TO USE THICKENER. PATIENT IS ON 3L NC (PATIENT USES OXYGEN AT HOME AT ). PATIENT IS UP AD EVETTE IN ROOM, PATIENT ENCOURAGED TO CALL FOR ASSISTANCE. PATIENTS WOUND DRESSING IS INTACT. PATIENT REFUSES THE CONTINOUS PULSE OX. PATIENTS LBM WAS THE 31ST. PATIENT DENIES PAIN. PATIENT IS RESTING COMFORTABLEY IN BED. WCM. PATIENT IS PROGRESSING TO GOALS. PATIENT NEEDS TEACHING ABOUT ASPIRATION.
[2018-06-12 04:52] VITALS: BP 120/47
[2018-06-12 08:13] VITALS: BP 116/52
[2018-06-12 11:19] VITALS: BP 115/41
[2018-06-12 16:23] VITALS: BP 125/67
--- NOTE | 2018-06-12 17:41 | NUR ---
PT IS ALERT AND ORIENTED X4. LUNGS ARE CLEAR TO DIMINISHED. ACTIVE BOWEL SOUNDS. EATING A CARB CONTROL DIET. AND THICKED LIQUIDS. A FIB AND A FLUTTER WITH A CONTROL RATE OF 74. UP USES WALKER IN THE ROOM. FAMILY AT BEDSIDE TODAY TO VISIT. PT USES CALL LIGHT IF NEEDS ASSISTANCE. WILL CONTINUE TO ASSESS AND MONITOR PER NURSING
[2018-06-12 20:10] VITALS: BP 114/51
--- NOTE | 2018-06-13 04:24 | NUR ---
Patient making progress towards outcome goals. Oxygenation optimal with 3L/NC. Vital signs stable. Rhythm chronic afib rate controlled. Denies pain. Uses call light appropriately. Up adlib in room independently without difficulty.
[2018-06-13 04:30] VITALS: BP 106/57
[2018-06-13 07:36] VITALS: BP 127/60
[2018-06-13 11:49] VITALS: BP 113/65
--- NOTE | 2018-06-13 11:54 | NUR ---
Nutrition follow-up: Pt believes her appetite has improved slightly. She is still having issues w/ aspiration. Possible surgery needed. Provided her with visual aid of small meal ideas and information on low sodium foods. She understands importance of making these diet changes. She had no further questions or concerns. Consider low risk.
[2018-06-13 15:11] LABS: ADENOVIRUS Negative (Negative); INFLUENZA A Negative (Negative); INFLUENZA B Negative (Negative); METAPNEUMOVIRUS Negative (Negative); PARAINFLUENZA 1 Negative (Negative); PARAINFLUENZA 2 Negative (Negative); PARAINFLUENZA 3 Negative (Negative); RHINOVIRUS Negative (Negative); RSV A Negative (Negative); RSV B Negative (Negative)
--- NOTE | 2018-06-13 15:16 | NUR ---
ASSUMED PATIENT CARE AT 0715. A&OX4. NO COMPLAINTS OF PAIN. UP ADLIB. UPPER GI STUDY DONE TODAY. SEE RESULTS. CONTINUE POC. WORKING TOWARD GOALS.
[2018-06-13 16:00] VITALS: BP 121/57
[2018-06-13 20:20] VITALS: BP 113/50
--- NOTE | 2018-06-14 02:40 | NUR ---
ASSUMED CARE OF PT AT 1900. A&Ox4, COOPERATIVE. VS STABLE. CONTINUES A FIB ON TELE IN THE 60'S. NO RESP DISTRESS W/ RA, O2 SAT'S 100%. COMPLIANT W/ PO ANTIBIOTICS AND MEDS ORDERED. ACTIVE IN AND DISCUSSING POC. PROGRESSING TOWARDS GOALS.
[2018-06-14 04:15] VITALS: BP 111/58
[2018-06-14 07:57] VITALS: BP 126/60
--- NOTE | 2018-06-14 09:49 | NUR ---
Call from Dr. Burgess regarding new consult on patient. Dr Perea has operated on patient in the past. Dr. Burgess would like to offer Dr. Perea consult given surgical history. Consult placed to Dr. Perea.
[2018-06-14 11:31] VITALS: BP 119/60
--- NOTE | 2018-06-14 15:34 | NUR ---
Assumed care of patient at 0700. Vitals have been stable. Patient alert and oriented x4. Maintaining oxygen saturations on 3L NC, which is baseline for patient. Reports that breathing is feeling much better and improving this morning. No complaints of pain. This afternoon, patient with some complaints of feeling SOB with activity, weak and dizzy at times after walking. Feels she may have overexerted herself by walking too much yesterday. Vitals remain stable at time of complaint. Encourage patient to take it easy, to give lots of time for recovery, take deep breaths and rest. Reports improvement. Calling for assistance to bathroom appropriately. Voiding adequately. Surgery consult placed - see previous note regarding consult to both Dr. Burgess and Dr. Perea at this time. Most likely, Dr. Perea to see and accept patient. Attempting to progress towards POC. Will continue to monitor.
--- NOTE | 2018-06-14 15:42 | NUR ---
ON-GOING ASSESSMENT: SURGICAL CONSULT WAS PLACED FOR PATIENT. CM UPDATED [facility] AND THEY CAN ACCEPT PATIENT FOR HH SERVICES WHENEVER SHE IS MEDICALLY STABLE FOR DISCHARGE. CM WILL CONTINUE TO FOLLOW.
[2018-06-14 16:24] VITALS: BP 129/70
[2018-06-14 19:11] VITALS: BP 119/52
[2018-06-15 03:56] VITALS: BP 133/68
--- NOTE | 2018-06-15 05:02 | NUR ---
PATIENT IS PROGRESSING IN HER CARE PLAN. VITAL SIGNS STABLE WITH PATIENT HAVING NO COMPLAINTS OF PAIN OR NAUSEA. PATIENT REMAINED FULLY ORIENTED THROUGHOUT SHIFT WITH NO EPISODES OF BEING FORGETFUL DISPLAYED IN PREVIOUS OVERNIGHT SHIFTS. PATIENTS BREATHING REMAINED STALE ON OXYGEN EVIDENCED BY SPOT OXYGENATION CHECKS IN ACCEPTABLE RANGES. PATIENT ABLE TO SWALLOW MEDICATIONS AND FLUIDS WITH NO EVIDENCE OF ASPIRATION. PATIENT HAS BEEN UP MULTIPLE TIMES AD EVETTE WITHOUT INCIDENT. SHE APPEARS STRONG AND BALANCED WHEN WALKING. PATIENT IS ANXIOUS FOR DISCHARGE SOON. CONTINUE PLAN OF CARE.
[2018-06-15 07:53] VITALS: BP 112/65
--- NOTE | 2018-06-15 08:57 | HC ---
[facility] [address] [place] [address] CONSULTATION Name: MITESH BRUNER Room #: 352-P ADM IN M.R.#: [id number] Admission: 06/08/18 Attend Phys: Ang Reed MD Discharge: Date of : 52 Report #: [id number] THIS REPORT FOR: //name// CC: Ang Badillo DATE OF SERVICE: 06/08/2018 CHIEF COMPLAINT: Ulceration to the left lower extremity. HISTORY OF PRESENT ILLNESS: This is a 67-year-old female patient with a history of venous stasis ulceration to the left lower extremity is admitted with sepsis and healthcare-associated pneumonia as well as congestive heart failure. She has had a chronic ulceration to her left lower leg that we have been following for quite some time and I have been asked to see her again with regard to wound care. The patient was originally unresponsive upon admission is more awake and alert at this time, although somewhat confused. PAST MEDICAL HISTORY: Positive for atrial fibrillation, chronic diarrhea, iron deficiency anemia, peripheral vascular disease with right iliac stent placement, ovarian cancer treated with surgery, chemo and radiation, mitral valve prolapse, history of pulmonary hypertension, debility, protein calorie malnutrition, dyslipidemia, chronic obstructive pulmonary disease and metabolic encephalopathy. SOCIAL HISTORY: Negative for current alcohol or tobacco use, although she is a former smoker. FAMILY HISTORY: Significant for heart disease and breast cancer in her daughter. MEDICATIONS: The patient's active medications include diltiazem, Neurontin, Xarelto, Demadex, Klor-Con and metoclopramide. ALLERGIES: CODEINE, PENICILLIN. REVIEW OF SYSTEMS: Somewhat limited due to the patient's level of alertness. CONSTITUTIONAL: The patient denies fever or chills. ENT: The patient denies earache, nasal drainage or sore throat. CARDIOVASCULAR: The patient denies chest pain, palpitation or diaphoresis. PULMONARY: The patient denies cough, but does complain of some shortness of breath at this point in time. Denies hemoptysis. GASTROINTESTINAL: The patient denies nausea, vomiting or abdominal pain. ORTHOPEDIC: The patient is aware of her ulcer on her leg stated it is improving. Other systems in a 14-point review of systems are negative at this time. [address] [address] CONSULTATION Name: MITESH BRUNER Room #: 352-P [facility] IN ..#: [id number] Admission: 06/08/18 Attend Phys: Ang Reed MD Discharge: Date of : 52 Report #: [id number] PHYSICAL EXAMINATION: VITAL SIGNS: At this time include pulse rate 60, respiration of 16, blood pressure 109/54, temperature 98.4. GENERAL: This is a chronically ill-appearing female patient who appears to be in minimal distress. HEENT: Head is normocephalic. NECK: Supple. LUNGS: Diminished. HEART: Regular. ABDOMEN: Soft. Bowel sounds present. EXTREMITIES: Demonstrate palpable distal pulses. She has ulceration on the left lateral lower leg with some surrounding venous stasis dermatitis. The ulceration is healthy, clean, granulating and improved since I last saw her. CLINICAL IMPRESSION: 1. Venous type ulceration, left lower extremity, improved since last evaluation 2. Respiratory failure with history of healthcare-associated pneumonia and congestive heart failure. 3. Peripheral vascular disease. 4. Moderate protein-calorie malnutrition. 5. History of atrial fibrillation. RECOMMENDATIONS: At this point in time, we will recommend Fibracol and a bordered foam to be changed Monday, Monday and Monday. Recommend elevation of the lower extremities. Recommend continue her current medications, nutrition to maximize wound healing. I appreciate being asked to see her in consultation. <ELECTRONICALLY SIGNED> By: Perez Marcelo MD 06/15/18 [phone] [id number] [phone] Perez Marcelo MD /nt
[2018-06-15 11:33] VITALS: BP 134/73
[2018-06-15] MEDS ORDERED: PROTONIX 20 MG20 M1 PO (11:49)
[2018-06-15 12:42] VITALS: BP 114/53
--- NOTE | 2018-06-15 12:54 | NUR ---
ON-GOING ASSESSMENT: PATIENT HAS ORDERS TO DISCHARGE HOME WITH TODAY. NOTIFIED [facility] OF DISCHARGE TODAY AND THEY PLAN ON SEEING HER THIS WEEKEND. CM FAXED DISCHARGE ORDERS TO [facility] AND CONFIRMED THEY RECEIVED IT. CM ALSO PROVIDED PATIENT WITH CONTACT NUMBER FOR [facility] FOR HER TO FOLLOW UP ON SECOND OPINION FOR HERNIA. PT REPORTS NO FURTHER NEEDS FROM AT THIS TIME.
--- NOTE | 2018-06-15 13:21 | NUR ---
WOUND FOLLOW UP: PT. WAS SEEN TODAY BY DR. QUINTANILLA AND MYSELF. PT. WOUND IS CLINICALLY BETTER THIS VISIT. PLAN IS FOR DISCHARGE TODAY WITH HOME HEALTH. DISCHARGE PLANNING WAS DISCUSSED. RECOMMMENDATIONS: CONTINUE WITH CURRENT PLAN OF CARE. PT. AND STAFF NURSE WERE INSTRUCTED ON WOUND CARE.
[2018-06-15 13:49] VITALS: BP 114/53
[2018-06-15] MEDS ORDERED: CLEOCIN HCL150 MG PO (13:49)
[2018-06-15] MEDS ORDERED: LEVAQUIN 500 M500 M2 PO (13:49)
--- NOTE | 2018-06-15 18:02 | NUR ---
Assumed care of patient at 0700. Vitals have been stable. Patient reports feeling much improved this shift. Denies pain, dizziness, SOB, weakness. Alert and oriented x4. Patient is ready for discharge home - patient is wanting to follow up and get recommendations from [facility], as far as surgical concerns. Discharge orders received. Spoke with Dr. Santiago regarding antibiotic management - prescriptions called into patient's pharmacy and voicemail left with callback number for any questions. Discharge instructions reviewed with patient at bedside, including follow up appointments and prescriptions. Voices understanding. Contact information for [facility] provided by . Dressing to left ankle wound was changed by wound care team today and picture taken and placed in chart for discharge. Right PICC discontinued - pressure held x5 minutes and new dressing applied. No bleeding noted. Belongings gathered. No home meds stored in pharmacy, no items locked in security. Telemetry discontinued. Transported to private vehicle via wheelchair to MD home with home health.
== END 2018-06-15 14:53 | disposition home health service (06) | DRG 177 ==
LOC: ER 09:29 → 3W 11:07 → EROBS 11:07 → 3W 11:29 → ENTRNSPT 06-15 13:59 → EDTRNSPTSTS 06-15 14:22 → 3W 06-15 14:53
PROVIDERS: Emergency Medicine; Family Medicine; Internal Medicine Pulmonary Disease; Specialist; ADMIT Internal Medicine
PROC: 02HV33Z Insertion of Infusion Device into Superior Vena Cava, Percutaneous Approach (ICD-10-PCS; principal; 2018-06-08)
DX: J69.0 Pneumonitis due to inhalation of food and vomit (principal); G92 Toxic encephalopathy; J96.21 Acute and chronic respiratory failure with hypoxia; I42.9 Cardiomyopathy, unspecified; E44.0 Moderate protein-calorie malnutrition; I50.30 Unspecified diastolic (congestive) heart failure; J44.1 Chronic obstructive pulmonary disease with (acute) exacerbation; N39.0 Urinary tract infection, site not specified; I27.20 Pulmonary hypertension, unspecified; F32.9 Major depressive disorder, single episode, unspecified; F41.9 Anxiety disorder, unspecified; E78.5 Hyperlipidemia, unspecified; I48.2 Chronic atrial fibrillation; D50.9 Iron deficiency anemia, unspecified; I87.2 Venous insufficiency (chronic) (peripheral); E87.6 Hypokalemia; Z66 Do not resuscitate; I25.10 Atherosclerotic heart disease of native coronary artery without angina pectoris; B95.4 Other streptococcus as the cause of diseases classified elsewhere; R13.12 Dysphagia, oropharyngeal phase; I73.9 Peripheral vascular disease, unspecified; Z85.43 Personal history of malignant neoplasm of ovary; Z86.718 Personal history of other venous thrombosis and embolism; Z86.711 Personal history of pulmonary embolism; Z95.828 Presence of other vascular implants and grafts; Z90.710 Acquired absence of both cervix and uterus; Z88.6 Allergy status to analgesic agent; Z88.0 Allergy status to penicillin; Z87.891 Personal history of nicotine dependence; Z95.820 Peripheral vascular angioplasty status with implants and grafts; Z92.21 Personal history of antineoplastic chemotherapy; Z92.3 Personal history of irradiation; Z79.01 Long term (current) use of anticoagulants; Z82.49 Family history of ischemic heart disease and other diseases of the circulatory system; Z80.3 Family history of malignant neoplasm of breast; Z68.30 Body mass index [BMI] 30.0-30.9, adult; Z28.21 Immunization not carried out because of patient refusal
CPT/HCPCS: 10879; 27000

== ENCOUNTER → 2018-09-21 | Outpatient (CLI) | payer OTHER ==
[~2018-09-21] VITALS: Ht 157.5 cm; Wt 82.6 kg
[~2018-09-21] MED LIST changes: +ASPIRIN81 M2 PO; +LEVAQUIN 500 M500 M2 PO; +PRILOSEC 20 MG20 MG PO
--- NOTE | ~2018-09-21 | P ---
[facility] [place] [address] [place] [address] PROCEDURE REPORT Name: MITESH BRUNER Room #: REG JOSE Hernadez#: [id number] Admission: 09/21/18 ������������������ Attend Phys: Mannie Grider Discharge: ������������������ Date of : 52 Report #: [id number] THIS REPORT FOR: //name// CC: Mannie William MD [facility] Jesus Loyd DATE OF SERVICE: 09/21/2018 PROCEDURE PERFORMED: Upper endoscopy with biopsies. HISTORY OF PRESENT ILLNESS: The patient is a 67-year-old female with multiple medical problems with a previous history of gastric bypass surgery in 1990. I actually performed an upper endoscopy on her in 03/2017, in which she was intubated in the ICU with a GI bleed. Request was actually for placement of OG tube into the stomach because it was coiling into the hiatal hernia at that time. EGD at that time showed surgical changes consistent with gastric bypass with small gastric remnant. A visible vessel with a clot was noted at that time and was treated with Endoclips. The patient is a poor historian and her brother is present, but he is a fair historian. It appears the patient has had problems with recurrent aspiration pneumonia. She on her medical list has omeprazole 20 mg per day as well as Reglan 10 mg b.i.d., although the brother does not think she has been obtaining her Prilosec on a regular basis. She denies any nausea or vomiting. She does complain of mid epigastric abdominal pain. She denies any dysphagia. 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 This could be certainly the source of reflux. Normal esophageal emptying. She underwent a cardiac procedure, I suspect echocardiogram, but I do not have a copy of these results, which they thought a mass was noted in her esophagus. The patient does take Xarelto and aspirin. These have now been held for the last several days. Plan is for upper endoscopy. DESCRIPTION OF PROCEDURE: The risks and benefits of the procedure were explained to the patient and her brother, those risks including but not limited to bleeding, perforation and the risk of sedation. She understood these risks and gave informed consent. Sedation was given using propofol per Anesthesia. Next, using a standard Olympus upper endoscope, the scope was placed in the patient's mouth and advanced under direct vision through the esophagus, stomach and into the jejunum. The upper and mid esophagus were normal. 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 I did obtain 2 biopsies. It did ooze somewhat. Because of this, I injected 0.5 mL of epinephrine in 2 different spots. No further bleeding was noted. There was no evidence of esophagitis. Again, the patient has a small gastric remnant from her previous surgery. Her surgical anastomosis is patent. There is no evidence of ulcerations in the gastric remnant or in the jejunum. I was able to advance [address] [address] PROCEDURE REPORT Name: SANTHOSHDELROYMITESH Room #: REG JOSE Hernadez#: [id number] Admission: 09/21/18 ������������������ Attend Phys: Mannie Grider Discharge: ������������������ Date of : 52 Report #: [id number] the scope well into the jejunum, which was normal throughout. At this point, the scope was then withdrawn and the procedure terminated. The patient tolerated the procedure well. IMPRESSION: Surgical changes consistent with a gastric bypass. The patient has a small gastric remnant. 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 I suspect this is making her reflux. In combination of the fact, she has a very small gastric remnant significant and therefore is probably leading to recurrent aspiration pneumonia. I had a long talk with the patient and her brother about this today. She is already on a promotility agent as well as PPI therapy. Options at this point would be considered surgery to fix her hiatal hernia as this may help prevent aspiration or consider possibly a J-tube placement at some point. Thank you for allowing me to participate in her care. ��������������������������������������������� ���������������������������������������� By: ��������������������������������������������� 1002 2151 Mannie Pacheco MD /ronak
--- NOTE | 2018-09-24 17:06 | PATH ---
[facility] [address] [place] [address] PATHOLOGY RPT PROCEDURE Name: MITESH MATHEWS EMILY Room #: REG JOSE Hernadez#: [id number] ������������������ Admission: 09/21/18 ������������������ Date of : 52 Discharge: Report #: [id number] Path Case #: [id number] [facility] Accession Number: [id number] . 01 Material submitted: . esophagus - BX ESOPHAGUS R/O BARRETTS BF-C . 01 Clinical history: . Pre-OP DX: Esophageal mass Post-OP DX: GERD, rule out Friedman's, hiatal hernia . 02 Diagnosis: Gastroesophageal mucosa, esophagus rule out Firedman's, endoscopic biopsy: - Gastric cardia-type mucosa with moderate chronic inflammation. - Negative for intestinal metaplasia (Friedman's metaplasia) or dysplasia. - Squamous mucosa with mild esophagitis. (IUV:wang; 09/24/2018) MBGraeme/09/24/2018 . 02 Electronically signed: . Stacey Costa MD, Pathologist NPI- [id number] . 01 Gross description: . Received in formalin labeled "Mariama Mathewsa, BX esophagus, rule out Friedman's," are 2 segments of issa soft tissue measuring 0.4 x 0.2 x 0.1 cm in aggregate dimensions and ranging from 0.3 to 0.4 cm in maximum dimension. The specimen is submitted entirely in cassette A1. (TSD; 09/21/2018) TOB/TOB . 02 Pathologist provided ICD-10: K29.50, K20.9 . 02 CPT . 476802 Specimen Comment: A courtesy copy of this report has been sent to Specimen Comment: [phone], . Specimen Comment: Report sent to / DR BEST Performed at: [address], [place], [place] [id number] MD Shan Monteiro MD Phone: [phone] Performed at: [address] [id number] MD Stacey Costa MD Phone: [phone]
== END | disposition home or self-care (01) ==
LOC: GI 06:54
DX: K29.50 Unspecified chronic gastritis without bleeding (principal); K21.0 Gastro-esophageal reflux disease with esophagitis; K44.9 Diaphragmatic hernia without obstruction or gangrene; I11.0 Hypertensive heart disease with heart failure; I50.9 Heart failure, unspecified; F03.90 Unspecified dementia, unspecified severity, without behavioral disturbance, psychotic disturbance, mood disturbance, and anxiety; R41.82 Altered mental status, unspecified; D64.9 Anemia, unspecified; F32.9 Major depressive disorder, single episode, unspecified; G47.33 Obstructive sleep apnea (adult) (pediatric); J43.9 Emphysema, unspecified; I48.91 Unspecified atrial fibrillation; E78.5 Hyperlipidemia, unspecified; I73.9 Peripheral vascular disease, unspecified; K52.9 Noninfective gastroenteritis and colitis, unspecified; Z86.711 Personal history of pulmonary embolism; Z86.718 Personal history of other venous thrombosis and embolism; Z90.49 Acquired absence of other specified parts of digestive tract; Z87.01 Personal history of pneumonia (recurrent); Z88.6 Allergy status to analgesic agent; Z98.84 Bariatric surgery status; Z88.0 Allergy status to penicillin; Z79.899 Other long term (current) drug therapy; Z98.890 Other specified postprocedural states; Z87.891 Personal history of nicotine dependence; Z79.01 Long term (current) use of anticoagulants; Z79.82 Long term (current) use of aspirin; Z90.710 Acquired absence of both cervix and uterus
CPT/HCPCS: 62110; 62900

== ENCOUNTER 2019-07-10 12:50 | Inpatient (IN) | payer OTHER ==
[~2019-07-10] VITALS: Ht 157.5 cm; Wt 91.0 kg
[2019-07-10 12:51] VITALS: BP 102/43
[2019-07-10 16:12] LABS: ABSOLUTE NEUTROPHILS 6.1 thou/uL (1.4-8.2); BASOPHILS 0.4 % (0.0-2.0); EOSINOPHILS 1.8 % (0.0-3.0); HEMATOCRIT 32.5 % (37.0-47.0); HEMOGLOBIN 10.3 gm/dL (12.0-15.0); LYMPHOCYTES 8.7 % (24.0-44.0); MCH 27.9 pg (26.0-34.0); MCHC 31.6 g/dL (28.0-37.0); MCV 88.3 fL (80.0-100.0); MONOCYTES 6.3 % (1.0-8.0); PLATELET COUNT 200 thou/uL (150-400); POLYS 82.8 % (36.0-66.0); RBC 3.68 mil/uL (4.20-5.00); RDW 15.8 % (10.5-14.5); WBC 7.4 thou/uL (4.0-11.0)
[2019-07-10 16:23] LABS: ANION GAP 8 mmol/L (7-16); BUN 12 mg/dL (7-18); CALCIUM 8.6 mg/dL (8.5-10.1); CHLORIDE 103 mmol/L (98-107); CO2 27 mmol/L (21-32); CREATININE 0.7 mg/dL (0.6-1.0); GLUCOSE 96 mg/dL (74-106); POTASSIUM 4.1 mmol/L (3.5-5.1); SODIUM 138 mmol/L (136-145)
[2019-07-10 16:34] LABS: ALBUMIN 3.9 g/dL (3.4-5.0); SGOT 24 U/L (15-37); SGPT 16 U/L (30-65); TOTAL BILIRUBIN 0.7 mg/dL (<0.1-1.0); TOTAL PROTEIN 7.7 g/dL (6.4-8.2); TROPONIN-I <0.06 ng/mL (<0.06)
[2019-07-10 20:06] VITALS: BP 164/79
[2019-07-10 20:27] VITALS: BP 164/79
[2019-07-10 21:00] VITALS: BP 163/89
--- NOTE | 2019-07-10 21:34 | NUR ---
94% ROOM AIR SATURATION. SHE HAS TROUBLE CONVEYING HER THOUGHTS. SHE ESPECIALLY, LOOSES HER ABILITY TO CONCENTRATE WHEN EYE CONTACT IS MADE. SHE ADMITS THAT HER SHORT TERM MEMORY IS NOT GOOD. SHE IS CALM AND COOPERATIVE, SHE HAS BEEN A PATIENT HERE BEFORE AND STATED THAT SHE FEELS VERY COMFORTABLE HERE AT [facility]. CAREPLAN STARTED.
[2019-07-10 23:52] VITALS: BP 153/62
[2019-07-11 03:32] VITALS: BP 145/79
--- NOTE | 2019-07-11 05:55 | NUR ---
resting quietly this am. cooperative and friendly, she needs much reassurnce and reminding of her status and the where abouts of family and items.
[2019-07-11 07:20] VITALS: BP 160/69
--- NOTE | 2019-07-11 10:33 | 2DMMODE ---
[facility] [place] [address] 2 D/M-MODE ECHOCARDIOGRAM Name: MITESH BRUNER Room #: 359-P ADM IN M.R.#: [id number] Admission: 07/10/19 Attend Phys: Ed Nguyen MD Discharge: Date of : 52 Report #: [id number] THIS REPORT FOR: cc: Ana Badillo K. Steven DO Lundgren, Craig H. MD [facility] ~ THIS REPORT FOR: //name// APPROVED REPORT Study performed: 07/11/2019 10:03:03 EXAM: Comprehensive 2D, Doppler, and color-flow Echocardiogram Patient Location: Echo lab Room #: 359 Status: routine BSA: 1.91 HR: 69 bpm BP: 160/88 mmHg Rhythm: Atrial Fibrillation Other Information Study Quality: Adequate Indications AFIB, HTN, COPD, pulmonary HTN. 2D Dimensions RVDd: 44.62 mm IVSd: 11.17 (7-11mm) LVOT Diam: 20.32 (18-24mm) LVDd: 44.30 mm PWd: 7.49 (7-11mm) Ascending Ao: 34.97 (22-36mm) LVDs: 28.92 (25-40mm) Aortic Root: 32.81 mm Volumes Left Atrial Volume (Systole) Single Plane 4CH: 89.79 mL Single Plane 2CH: 74.80 mL LA ESV Index: 45.00 mL/m2 Aortic Valve AoV Peak Vinh.: 1.66 m/s AO Peak Gr.: 10.99 mmHg LVOT Max P.67 mmHg LVOT Max V: 1.19 m/s [facility] [address] [place] [address] 2 D/M-MODE ECHOCARDIOGRAM Name: MITESH BRUNER Room #: 359-P ADM IN [facility].#: [id number] Admission: 07/10/19 Attend Phys: Ed Nguyen MD Discharge: Date of : 52 Report #: [id number] STAN Vmax: 2.33 cm2 Mitral Valve MV Decel. Time: 198.63 ms MV E Max Vinh.: 1.16 m/s Pulmonary Valve PV Peak Vinh.: 1.15 m/s PV Peak Gr.: 5.32 mmHg Tricuspid Valve TR Peak Vinh.: 3.46 m/s RAP Estimate: 10.00 mmHg TR Peak Gr.: 48.00 mmHg PA Pressure: 58.00 mmHg Left Ventricle The left ventricle is normal size. There is normal LV segmental wall motion. There is normal left ventricular wall thickness. Left ventricular systolic function is normal. LVEF is 60-65%. This study is not technically sufficient to allow evaluation of the LV diastolic function due to atrial fibrillation. Right Ventricle The right ventricle is normal size. The right ventricular systolic function is normal. Atria Left atrium is severely dilated. Right atrium is severely dilated. Aortic Valve The aortic valve is normal in structure. No aortic regurgitation is present. There is no aortic valvular stenosis. Mitral Valve The mitral valve is normal in structure. Trace to mild mitral regurgitation. Tricuspid Valve The tricuspid valve is normal in structure. Mild tricuspid regurgitation. Estimated PAP is 55-60mmHg. Pulmonic Valve The pulmonary valve is normal in structure. Trace pulmonic regurgitation. Great Vessels [facility] [address] [place] [address] 2 D/M-MODE ECHOCARDIOGRAM Name: MITESH BRUNER EMILY Room #: 359-P ADM IN M.R.#: [id number] Admission: 07/10/19 Attend Phys: Ed Nguyen MD Discharge: Date of : 52 Report #: [id number] The aortic root is normal in size. The ascending aorta is normal in size. IVC is dilated and collapses <50% with inspiration. Pericardium There is no pericardial effusion. <Conclusion> Left ventricular systolic function is normal. There is normal LV segmental wall motion. Both atria are severely dilated. The aortic valve is normal in structure. No aortic regurgitation or stenosis. The mitral valve is normal in structure. Trace to mild mitral regurgitation. Mild tricuspid regurgitation. Estimated pulmonary artery pressure of 55-60mmHg. There is no pericardial effusion. <ELECTRONICALLY SIGNED> By: Av Hall MD, FAC 07/11/191032 32 32 Av Hall MD, [facility] /INF
--- NOTE | 2019-07-11 15:05 | NUR ---
DISCHARGE PLANNING. DISCHARGE TO HOME WITH HOME HEALTH SERVICES. PATIENT STATES SHE IS CURRENT WITH [facility] PER UNIT SW. CALL PLACED TO [facility] INTAKE. SPOKE WITH BEREKET. BEREKET STATES PATIENT IS NOT CURRENT WITH [facility]. HAS USED [facility] IN THE PAST. PATIENT REQUESTING HH REFERRAL FAXED TO [facility]. REFERRAL FAXED, CALL PLACED TO [facility] INTAKE LIAISON TO NOTIFY. CRISTINA TO NOTIFY CM. FOLLOWING.
--- NOTE | 2019-07-11 15:49 | NUR ---
INITIAL ASSESSMENT: Received consult for possible HH services. SW reviewed chart and spoke with nursing and attending physician. Pt was admitted from home due to CAP. Discharge home is anticipated for tomorrow. KENAN met with pt at bedside. Introduced role of SW. Pt is alert/orientated. Pt reports she lives at home with her brother, who was recently diagnosed with cancer. Pt and her brother take care of each other. Pt has a cane, walker, wc and home O2 through [employer]. Pt has used [facility] in the past, and would like to use them again. Pt's PCP is Dr. Mitch Badillo. airport planner to fax HH referral to [facility]. SW is following to assist as needed with discharge planning.
[2019-07-11 16:16] VITALS: BP 147/53
[2019-07-11 19:35] VITALS: BP 168/64
--- NOTE | 2019-07-11 19:48 | NUR ---
PT LIVES AT HOME WITH HER BROTHER AND DOES NOT USE ANY ASSISTIVE DEVICES...GAIT VERY STEADY BUT FALL RISK PREC IN PLACE RELATED TO CONFUSION... SHIFT PROGRESSED HER CONFUSION WORSENED...SHE BEGAN PACKING HER BELONGINGS IN BAG AND WANTED TO LEAVE HOSPITAL...FREQ REDIRECTION NEEDED...
--- NOTE | 2019-07-12 04:18 | NUR ---
PATIENT TRANSFERRED TO [address] [place] [address] 445 AROUND 2300. DETAILED REPORT GIVEN.
--- NOTE | 2019-07-12 04:18 | NUR ---
PT WAS TRAANFERRED FROM 3W. PT ALERT TO SELF AT THIS TIME. FALL PRECATIONS IN PLACE. NO S/S ACUTE DISTRESS NOTED OR REPORTED AT THIS TIME. WILL CONT TO MONITOR FOR ANY CHANGES IN CONDITION.
[2019-07-12 08:24] VITALS: BP 158/54
[2019-07-12 09:38] LABS: CALCIUM 9.2 mg/dL (8.5-10.1); CREATININE 1.2 mg/dL (0.6-1.0)
--- NOTE | 2019-07-12 16:16 | NUR ---
FAXED REFERRAL TO [facility] SPOKE WITH AMARI IN INTAKE SHE RECEIVED REFERRAL AND CAN ACCEPT. NURSING,PT,OT WILL NOT BE ABLE TO START VISITS TIL MON/. SPOKE WITH PT AND SHE IS FINE WITH START OF CARE THEN. IF PT DISCHARGES OVER WEEKEND FAX DC ORDERS/SUMMARY TO [phone] AND CALL [phone] TO CONFIRM THEY RECEIVED DC ORDERS.
[2019-07-12 16:20] VITALS: BP 158/54
[2019-07-12 18:35] VITALS: BP 157/59
[2019-07-12 20:00] VITALS: BP 149/67
--- NOTE | 2019-07-13 | NUR ---
PT IS ALERT TO SELF. SHE IS CONFUSED AND FORGETFUL.PT GETS SOA WITH ACTIVITY. PT IS A FALL RISK AND GETS UP ALL THE TIME SETTING OFF ALARMS. PT GETS UP TO STRAIGHTEN STUFF IN THE ROOM. PIV CAME OFF IN THE PROCESS.PT IS ON 02/2L/NC BUT KEEPS TAKING IT OFF.PRN HALDOL JUST GIVEN FOR SOME SLIGHT AGITATION/ANXIETY. ON NECTAR THICK LIQUIDS,TOOK ORAL MEDS OKAY.AFEBRILE.WILL CONTINUE WITH POC TILL EOS.
[2019-07-13 02:15] VITALS: BP 141/93
--- NOTE | 2019-07-13 02:42 | NUR ---
PT IS VERY PARANOID AT THIS TIME. STAFF TAKING TURNS TO GO TO HER ROOM AND TALK TO HER. SHE IS FULLY DRESSED WITH ALL HER BELONGINGS IN HAND READY TO "LEAVE". ONE TIME PO OLANZAPINE GIVEN IN ICE CREAM. PT IS STILL RESTLESS.
[2019-07-13 08:24] VITALS: BP 133/76
[2019-07-13] MEDS ORDERED: MEDROLDOSEPACK PO (10:40)
[2019-07-13] MEDS ORDERED: AUGMENTIN 875-1 EACH PO (10:40)
--- NOTE | 2019-07-13 14:28 | NUR ---
Received asleep on bed this morning. Due medications given as prescribed, able to swallow meds w/o difficulty- on aspiration precautions. On room air- saturating 95%. A+O to self, on and off confusion. Vital signs stable. Assisted in ADLs. On mechanical heart healthy diet- tolerating well; no nausea, no vomiting and no abdominal pain noted. Falls bundle in place- frequent visual checks done to patient. Continent of bowel and bladder- on standby assist going to the toilet. To re-insert IV, pt got restless last night and pulled IV out as per retail shift supervisor nurse; pt appeared calm and cooperative this morning. Pt seen by Dr Hannah this morning- discharge orders place; as per Dr Hannah no need to re-insert IV, will shift antibiotics to oral. Pt's brother Allan informed re: discharge and if he will be picking up patient or to set up transport- as per Allan he will be picking up pt within an hour- pt informed. Discharge orders, follow up schedule, prescription given and instructed to patient and Brother Allan, given emphasis on tapering steroids and when are the next doses to be taken. Discharge packet and discharge summary faxed to [facility]- Staff Caitlyn verified that they have received faxed documents. Pt brought down by CROCHETER [facility] via wheelchair with her personal belongings, pt's brother present during discharge.
--- NOTE | 2019-07-24 12:30 | EKG ---
[facility] [place] [place] [address] ELECTROCARDIOGRAM REPORT Name: MITESH BRUNER Room #: 445-P DIS IN M.R.#: [id number] Admission: 07/10/19 Attend Phys: Ed Nguyen MD Discharge: 07/13/19 Date of : 52 Report #: [id number] THIS REPORT FOR: cc: Ana Badillo K. Steven DO Lundgren, Craig H. 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
== END 2019-07-13 12:40 | disposition home health service (06) | DRG 177 ==
LOC: ER 12:50 → EROBS 17:09 → 3W 17:09 → 4S 07-11 23:13
PROVIDERS: Nurse Practitioner Adult Health; Nurse Practitioner Family; ADMIT Internal Medicine
DX: J69.0 Pneumonitis due to inhalation of food and vomit (principal); N17.0 Acute kidney failure with tubular necrosis; I50.32 Chronic diastolic (congestive) heart failure; I48.20 Chronic atrial fibrillation, unspecified; I48.21 Permanent atrial fibrillation; J44.9 Chronic obstructive pulmonary disease, unspecified; R19.7 Diarrhea, unspecified; I73.9 Peripheral vascular disease, unspecified; I34.1 Nonrheumatic mitral (valve) prolapse; R13.10 Dysphagia, unspecified; I27.20 Pulmonary hypertension, unspecified; I11.0 Hypertensive heart disease with heart failure; F32.9 Major depressive disorder, single episode, unspecified; G47.30 Sleep apnea, unspecified; I25.10 Atherosclerotic heart disease of native coronary artery without angina pectoris; I48.0 Paroxysmal atrial fibrillation; E66.9 Obesity, unspecified; E78.5 Hyperlipidemia, unspecified; K21.9 Gastro-esophageal reflux disease without esophagitis; Z87.01 Personal history of pneumonia (recurrent); Z79.82 Long term (current) use of aspirin; Z86.718 Personal history of other venous thrombosis and embolism; Z79.01 Long term (current) use of anticoagulants; Z95.820 Peripheral vascular angioplasty status with implants and grafts; Z87.891 Personal history of nicotine dependence; Z86.711 Personal history of pulmonary embolism; Z90.49 Acquired absence of other specified parts of digestive tract; Z98.84 Bariatric surgery status; Z90.89 Acquired absence of other organs; Z90.710 Acquired absence of both cervix and uterus; Z79.899 Other long term (current) drug therapy; Z88.5 Allergy status to narcotic agent; Z88.0 Allergy status to penicillin; Z82.49 Family history of ischemic heart disease and other diseases of the circulatory system; Z80.3 Family history of malignant neoplasm of breast; Z68.36 Body mass index [BMI] 36.0-36.9, adult; Z28.21 Immunization not carried out because of patient refusal
CPT/HCPCS: 10102; 10879

== ENCOUNTER → 2020-02-18 | Outpatient (CLI) | payer OTHER ==
[~2020-02-18] MED LIST changes: +AUGMENTIN 875-1 EACH PO; +MEDROLDOSEPACK PO
== END ==
LOC: SJCVC 14:50
PROVIDERS: ATTEND Internal Medicine Cardiovascular Disease
DX: I48.91 Unspecified atrial fibrillation (principal); R94.31 Abnormal electrocardiogram [ECG] [EKG]; I45.10 Unspecified right bundle-branch block; I25.10 Atherosclerotic heart disease of native coronary artery without angina pectoris; I11.0 Hypertensive heart disease with heart failure; I50.9 Heart failure, unspecified; E78.00 Pure hypercholesterolemia, unspecified; I27.20 Pulmonary hypertension, unspecified; J44.9 Chronic obstructive pulmonary disease, unspecified; G47.33 Obstructive sleep apnea (adult) (pediatric); D68.59 Other primary thrombophilia; Z99.81 Dependence on supplemental oxygen; Z79.899 Other long term (current) drug therapy; Z87.891 Personal history of nicotine dependence; Z86.718 Personal history of other venous thrombosis and embolism